=== PATIENT | male | born 1945 | race Caucasian/White ===

== ENCOUNTER 2016-07-27 13:54 | Emergency (ER) | payer MEDICARE, OTHER ==
[~2016-07-27] VITALS: Ht 167.6 cm; Wt 81.6 kg
[~2016-07-27 13:54] MED LIST: ASPI-991 PO; ATOR10TA PO; CLON0.1T PO; DIVA250T4 PO; FLUO20TA28 PO; GUAI480S10 PO; LEVE250T2 PO; LOPE2TAB25 PO; LORA1TAB PO; LOSA50TA21 PO; METF500T4 PO; METO25TA6 PO; OLAN20TA3 PO; OXYC10TA49 PO; PANT40TA4 PO; SUCR1TAB26 PO; TAMS0.4C34 PO; TEMA15CA PO; TRAZ-144 PO
--- NOTE | 2016-07-27 14:03 | NUR ---
BIB [facility] C/O N/V/D AND LOWER ABD PAIN X 1 DAY. GOWNED PT . PLACED ON MONITOR. VSS.
--- NOTE | 2016-07-27 14:15 | NUR ---
DR HARRINGTON AT BEDSIDE FOR EVAL
[2016-07-27] MEDS ORDERED: OXYC-28 PO (14:16)
[2016-07-27] MEDS ORDERED: AZIT250T6 PO (14:16)
[2016-07-27] MEDS ORDERED: BUDE10.2 IH (14:16)
[2016-07-27] MEDS ORDERED: DOCU-25 PO (14:16)
[2016-07-27] MEDS ORDERED: MORPHINE SULFATE INJ 4 MG/ML DISP.SYRIN ONE (14:22)
[2016-07-27] MEDS ORDERED: ONDANSETRON HCL/PF 4 MG/2 ML VIAL ONE (14:23)
[2016-07-27] MEDS ORDERED: IV SET PRIMARY PUMP SET 1 EA INFUS.SET MC ONE (14:23)
[2016-07-27] MEDS ORDERED: IV NS 0.9% 1,000 ML ONE (14:23)
--- NOTE | 2016-07-27 14:25 | NUR ---
PAVAN #20 IV ACCESS. BLOOD SAMPLE COLLECTED SENT TO LAB
[2016-07-27 14:30] LABS: BASOPHILS # (AUTO) 0.2 /CMM (0.0-0.2); EOSINOPHILS # (AUTO) 0.2 /CMM (0.0-0.7); EOSINOPHILS % (AUTO) 3.3 % (0.0-6.0); HEMATOCRIT 35 % (39-51); LYMPHOCYTES # (AUTO) 1.6 /CMM (0.8-4.8); MEAN CORPUSCULAR HEMOGLOBIN 32 PG (26.0-33.0); MEAN CORPUSCULAR HGB CONC 34 g/dl (31.0-36.0); MEAN CORPUSCULAR VOLUME 93 fL (80-96); MONOCYTES # (AUTO) 0.5 /CMM (0.1-1.30); MONOCYTES % (AUTO) 7.8 % (2.0-12.0); NEUTROPHILS # (AUTO) 3.5 /CMM (1.8-8.9); NEUTROPHILS % (AUTO) 57.9 % (43.0-81.0); PLATELET COUNT (AUTO) 184 /CMM (150-450); RDW COEFFICIENT OF VARIATION 13.3 (11.5-15.0); RED BLOOD CELL COUNT(AUTO) 3.78 MIL/uL (4.5-6.0)
[2016-07-27] MEDS ORDERED: MORPHINE SULFATE INJ 2 MG/ML DISP.SYRIN IV ONE (14:30)
[2016-07-27] MEDS ORDERED: IV NS 0.9% 1,000 ML BAG IV ONE (14:30)
[2016-07-27] MEDS ORDERED: ONDANSETRON HCL/PF 4 MG/2 ML VIAL IVP ONE (14:30)
[2016-07-27 14:41] LABS: CALCIUM, SERUM 8.8 mg/dL (8.5-10.1); CREATININE 1.3 mg/dL (0.6-1.3); POTASSIUM 5.4 mmol/L (3.5-5.1)
--- NOTE | 2016-07-27 14:43 | NUR ---
PT TAKEN TO CT IVAN RAY
[2016-07-27 14:46] LABS: ALBUMIN 3.2 g/dL (3.4-5.0); BILIRUBIN,TOTAL 0.2 mg/dL (0.2-1.0); TOTAL PROTEIN, SERUM 7.4 g/dL (6.4-8.2)
--- NOTE | 2016-07-27 15:41 | NUR ---
CALLED [facility] FOR TRANSPORT BACK TO [facility], ETA 90 MIN
--- NOTE | 2016-07-27 15:41 | NUR ---
IV removed. Catheter intact and site benign. Pressure and 4x4 applied to site. No bleeding noted.
--- NOTE | 2016-07-27 15:41 | NUR ---
Patient discharged to home in stable condition. Written and verbal after care instructions given. Patient verbalizes understanding of instruction.
[2016-07-27 16:14] VITALS: BP 120/76
== END 2016-07-27 17:20 | disposition home or self-care (01) ==
LOC: ER 13:55
DX: K59.00 Constipation, unspecified (principal); E11.9 Type 2 diabetes mellitus without complications; E78.00 Pure hypercholesterolemia, unspecified; F29 Unspecified psychosis not due to a substance or known physiological condition; F17.200 Nicotine dependence, unspecified, uncomplicated; G89.29 Other chronic pain; M54.5 Low back pain; I10 Essential (primary) hypertension; J45.909 Unspecified asthma, uncomplicated; Z79.82 Long term (current) use of aspirin; Z88.0 Allergy status to penicillin; Z91.013 Allergy to seafood; Z91.018 Allergy to other foods; Z88.6 Allergy status to analgesic agent; Z88.8 Allergy status to other drugs, medicaments and biological substances
CPT/HCPCS: 36415; 74176; 80048; 80076; 83690; 85025; 96361; 96374 ×2; 99285; A4606; J2270; J2405; J7030; Z7610

== ENCOUNTER 2016-11-16 17:10 | Emergency (ER) | payer MEDICARE, OTHER ==
[~2016-11-16] VITALS: Ht 172.7 cm; Wt 79.4 kg
[~2016-11-16 17:10] MED LIST changes: +AZIT250T6 PO; +BUDE10.2 IH; +DOCU-25 PO; -GUAI480S10 PO; -LOPE2TAB25 PO; +OXYC-28 PO; -OXYC10TA49 PO; -SUCR1TAB26 PO
--- NOTE | 2016-11-16 17:40 | NUR ---
CARMINA FROM [facility] VV: R HIP PAIN S/P WITNESSED GLF @ 1600. PATIENT A/OX 4. BREATHING EVEN AND UNLABORED. NO SOB. VITALS STABLE. SAFETY AND COMFORT MEASURES IN PLACE. AWAITING MD ORDERS.
--- NOTE | 2016-11-16 18:25 | NUR ---
PATIENT TAKEN TO XRAY VIA STRETCHER.
--- NOTE | 2016-11-16 18:43 | NUR ---
PATIENT RETURNED FROM XRAY IN STABLE CONDITION.
--- NOTE | 2016-11-16 19:25 | NUR ---
REPORT GIVEN TO HPIL BURNETT FOR HALLIE.
--- NOTE | 2016-11-16 19:48 | NUR ---
CALLED [facility] FOR TRANSPORT,ETA 2014
--- NOTE | 2016-11-16 20:15 | NUR ---
report given to emt transport.
[2016-11-16 20:16] VITALS: BP 126/64
[2016-11-17] MEDS ORDERED: NALO25TA PO (07:22)
[2016-11-17] MEDS ORDERED: DIPH1TAB70 PO (07:22)
[2016-11-17] MEDS ORDERED: ALBU1.257 IH (07:22)
[2016-11-17] MEDS ORDERED: FLUT1DIS3 IH (07:22)
[2016-11-17] MEDS ORDERED: SUCR1ORA2 PO (07:22)
[2016-11-17] MEDS ORDERED: LURA40TA PO (07:22)
== END 2016-11-16 20:17 | disposition home or self-care (01) ==
LOC: ER 17:11
DX: M54.5 Low back pain (principal); M54.6 Pain in thoracic spine; F17.200 Nicotine dependence, unspecified, uncomplicated; E11.9 Type 2 diabetes mellitus without complications; E78.00 Pure hypercholesterolemia, unspecified; G89.29 Other chronic pain; I10 Essential (primary) hypertension; I70.0 Atherosclerosis of aorta; J45.909 Unspecified asthma, uncomplicated; Z79.82 Long term (current) use of aspirin; Z88.0 Allergy status to penicillin; W19.XXXA Unspecified fall, initial encounter; Y92.89 Other specified places as the place of occurrence of the external cause; Y93.89 Activity, other specified; Y99.8 Other external cause status; Z88.8 Allergy status to other drugs, medicaments and biological substances; Z91.013 Allergy to seafood; Z91.018 Allergy to other foods
CPT/HCPCS: 72080; 82962; 99284; A4606; Z7610

== ENCOUNTER 2016-11-17 05:35 | Inpatient (IN) | payer MEDICARE, OTHER ==
[2016-11-17] VITALS (14 sets, daily range): BP systolic 107–153; BP diastolic 54–102
[~2016-11-17] VITALS: Ht 165.1 cm; Wt 65.3 kg
--- NOTE | 2016-11-17 05:35 | NUR ---
to bed 3 bib paramedics c/o syncope per ems report. pt aaox4 no acute distress noted, resp even and unlabored. pupils perrl, pt able to move all extremities well with bilateral equal assistant oceanographer. old multiple facial abrasion noted, noted new forehead abrasion from syncope this morning. place pt on cardiac monitoring, continuous pox. er md at bedside to eval pt with orders received. will carry out orders.
--- NOTE | 2016-11-17 06:01 | NUR ---
pt transported to radiology for ct.
[2016-11-17 06:06] LABS: HEMATOCRIT 40 % (39-51); HEMOGLOBIN 13.2 g/dL (13.5-17.5); LYMPHOCYTES # (AUTO) 0.7 /CMM (0.8-4.8); MEAN CORPUSCULAR HEMOGLOBIN 31 PG (26.0-33.0); MEAN CORPUSCULAR HGB CONC 33 g/dl (31.0-36.0); MEAN CORPUSCULAR VOLUME 94 fL (80-96); MONOCYTES # (AUTO) 1.7 /CMM (0.1-1.30); MONOCYTES % (AUTO) 10.4 % (2.0-12.0); NEUTROPHILS # (AUTO) 14.2 /CMM (1.8-8.9); NEUTROPHILS % (AUTO) 85.6 % (43.0-81.0); PLATELET COUNT (AUTO) 150 /CMM (150-450); RDW COEFFICIENT OF VARIATION 14.3 (11.5-15.0); RED BLOOD CELL COUNT(AUTO) 4.27 MIL/uL (4.5-6.0); WHITE BLOOD COUNT (AUTO) 16.6 K/uL (4.3-11.0)
[2016-11-17 06:25] LABS: INR 1.32 (0.87-1.13); PROTHROMBIN TIME 13.8 SECS (9.5-12.7)
--- NOTE | 2016-11-17 06:29 | NUR ---
pt back from radiology. pending ct result.
[2016-11-17 06:58] LABS: ALBUMIN 3.5 g/dL (3.4-5.0); BILIRUBIN,DIRECT 0.2 mg/dL (0.0-0.2); BILIRUBIN,TOTAL 0.8 mg/dL (0.2-1.0); CALCIUM, SERUM 8.9 mg/dL (8.5-10.1); CREATININE 1.7 mg/dL (0.6-1.3); POTASSIUM 3.5 mmol/L (3.5-5.1); TOTAL PROTEIN, SERUM 7.5 g/dL (6.4-8.2)
[2016-11-17 07:07] LABS: TROPONIN I 7.66 ng/mL (0.00-0.056)
--- NOTE | 2016-11-17 07:07 | NUR ---
er spoke to radiologist regarding ct head result.
--- NOTE | 2016-11-17 07:08 | NUR ---
report given to am shift RN Jordan.
--- NOTE | 2016-11-17 07:11 | NUR ---
Received report from Ed. Patient is resting comfortably in bed with eyes closed. Easily aroused. VSS
[2016-11-17] MEDS ORDERED: FLUT1DIS3 IH (07:22)
[2016-11-17] MEDS ORDERED: NALO25TA PO (07:22)
[2016-11-17] MEDS ORDERED: DIPH1TAB70 PO (07:22)
[2016-11-17] MEDS ORDERED: ALBU1.257 IH (07:22)
[2016-11-17] MEDS ORDERED: LURA40TA PO (07:22)
[2016-11-17] MEDS ORDERED: SUCR1ORA2 PO (07:22)
--- NOTE | 2016-11-17 07:47 | NUR ---
DR NYE IS NOT [facility] NURSING DIRECTOR. OK TO ADMIT PT TO [facility] PER DR NYE'S VOICE MSG.
--- NOTE | 2016-11-17 07:48 | NUR ---
DR NYE CALLED, PANEL ON-CALL PAGED
[2016-11-17 09:47] LABS: CREATINE KINASE MB 9.2 ng/mL (0-3.6)
--- NOTE | 2016-11-17 11:38 | NUR ---
PAGED DR MERRITT TO UPDATE ON 2.004
--- NOTE | 2016-11-17 12:59 | NUR ---
REPORT GIVEN TO LEX SANTOS
--- NOTE | 2016-11-17 13:21 | NUR ---
CARDIOLOGY ON-CALL, DR SAHNI, CALLED AND SPOKE WITH DR WHITE FOR CONSULT
--- NOTE | 2016-11-17 14:00 | NUR ---
ICU/RN: Pt received via gurney, breathing even and unlabored on RA, c/o 8/10 chest pressure, tightness radiating to R arm. A&Ox4. SR on monitor. Skin warm, dry, issues identified and documented. Belongings put in ICU safe. Oriented to unit and POC. Verbalized understanding.
--- NOTE | 2016-11-17 14:10 | NUR ---
ICU/RN: Dr Tolentino at bedside for admission. Case discussed with Dr Guardado. Per MD's, pt is not a candidate for cardiac cath, anticoagulation at this time. New orders noted and carried out.
--- NOTE | 2016-11-17 14:45 | NUR ---
ICU/RN: Dr Guardado at the bedside for cardiology consult. Abn labs and pt status discussed. Pending pacemaker evaluation ordered by .
--- NOTE | 2016-11-17 15:30 | NUR ---
ICU/RN: Provided pt with list of non-formulary home meds, per pt "no one can bring it for me." Swapnil, Rx informed.
--- NOTE | 2016-11-17 16:00 | NUR ---
ICU/RN: F/u with nursing human resources department supervisor regarding midline placement. Per human resources department supervisor, "I just sent them a message again, I'll update you later."
--- NOTE | 2016-11-17 19:00 | NUR ---
ICU/RN: Pt sitting in bed, refusing dinner, no s/s pain or distress, morphine dose effective. NSR on monitor, breathing even and unlabored on O2 2L/min NC. Call light within reach, alarm sounds audible. Care endorsed to pm rn for HALLIE.
--- NOTE | 2016-11-17 20:33 | NUR ---
TANKROOM WORKER DF RECEIVED PT TO ROOM#250 PT ADMITTED TODAY WITH NSTEMI, SYNCOPAL EPISODES, S/P FALL WITH HEAD CONTUSION. PT A/0-3 LETHARGIC DROWSY, PT HAD MORPHINE 2MG FOR CHEST PAIN AT 1805. PT SLEEPING AROUSES TO VERBAL/TACTILE. VSS. PT REPORTS MILD CHEST PAIN @3-4. PT SEEN BY CARDIOLOGY TODAY.
--- NOTE | 2016-11-17 21:52 | NUR ---
SHROUDMAN DF NEURO CHECK DONE PT LETHARGIC DROWSY. PT OPENS EYES WHEN PROMPTED TOO. PUPILS PEARLA@3MM. PT WITH WEAK EXTREMITY STRENGTH TO BUE 2ND PT HAS PAIN S/P SEVERAL FALLS PRIOR TO ADMISSION. PT UNABLE TO HOLD BUE UP 2ND PAIN. PT MOANING, C/O WHEN MOVING. PT REQUEST PAIN MGMT MORPHINE 2MG IVP ADMIN VSS. NAD NOTED. WILL CONTINUE TO MONITOR.
--- NOTE | 2016-11-17 23:39 | NUR ---
RISK MGR DF TRAZADONE/RESTORIL HELD PT SEDATED,DROWSY,LETHARGIC, PT RECEIVING MORPHINE PRN FOR CHEST PAIN/BODY PAIN S/P FALL.
[2016-11-18] VITALS (35 sets, daily range): BP systolic 114–156; BP diastolic 46–95
--- NOTE | 2016-11-18 02:34 | NUR ---
MEAT WRAPPER DF PT ADMIN MORPHINE 2MG IVP PT C/O BODY PAIN S/P FALL. PT C/O CHEST PAIN 5-6/10 NON RADIATING. PT STATES MS PROVIDES RELIEF. PT MUCH MORE ALERT,LESS LETHARGIC. PT CONVERSING, A/OX4. NEURO CHECK Q 2 HOURS NO ACUTE CHANGES NOTED.
--- NOTE | 2016-11-18 03:51 | NUR ---
SLIVER LAP TENDER DF PT C/O PAIN 06/20 ADMIN MORPHINE 2MG IVP ABOUT 90 MIN AGO. PT REQUESTING NORCO FOR BREAKTHROUGH PAIN. ADMIN PT 1 TAB NORCO. VSS. A/OX4.
[2016-11-18 05:01] LABS: BASOPHILS % (AUTO) 0.3 % (0.0-2.0); EOSINOPHILS % (AUTO) 0.2 % (0.0-6.0); HEMATOCRIT 35 % (39-51); HEMOGLOBIN 11.6 g/dL (13.5-17.5); MEAN CORPUSCULAR HEMOGLOBIN 32 PG (26.0-33.0); MEAN CORPUSCULAR HGB CONC 34 g/dl (31.0-36.0); MEAN CORPUSCULAR VOLUME 94 fL (80-96); MONOCYTES # (AUTO) 0.8 /CMM (0.1-1.30); MONOCYTES % (AUTO) 6.9 % (2.0-12.0); NEUTROPHILS # (AUTO) 9.2 /CMM (1.8-8.9); NEUTROPHILS % (AUTO) 83.6 % (43.0-81.0); PLATELET COUNT (AUTO) 120 /CMM (150-450); RDW COEFFICIENT OF VARIATION 14.7 (11.5-15.0); RED BLOOD CELL COUNT(AUTO) 3.69 MIL/uL (4.5-6.0); WHITE BLOOD COUNT (AUTO) 11.1 K/uL (4.3-11.0)
[2016-11-18 05:18] LABS: CALCIUM, SERUM 7.4 mg/dL (8.5-10.1); CREATININE 0.9 mg/dL (0.6-1.3); MAGNESIUM 1.5 mg/dL (1.8-2.4); PHOSPHORUS 1.9 mg/dL (2.5-4.9); POTASSIUM 4.1 mmol/L (3.5-5.1)
[2016-11-18 05:36] LABS: THYROID STIMULATING HORMONE 0.543 uIU/mL (0.358-3.74)
[2016-11-18 06:02] LABS: INR 1.22 (0.87-1.13); PROTHROMBIN TIME 12.7 SECS (9.5-12.7)
--- NOTE | 2016-11-18 07:49 | NUR ---
INITIAL METALLURGICAL LAB TECHNICIAN NOTE RCVD PT AWAKE AND ALERT SHOWING NO S/O DISTRESS, C/O PAIN 9/10 OVER BILATERAL KNEES AND FOREHEAD. SR ON TELE. TOLERATING O2 VIA NC. URINAL AT BEDSIDE. LEFT AC #18 C/D/I/PATENT. NO S/O INFILTRATION/PHLEBITIS OBSERVED. IVF INFUSING. PAIN MEDICATION GIVEN ORDERED. WILL CONTINUE TO MONITOR PT FOR SAFETY AND COMFORT. CALL LIGHT WITHIN REACH. BED IN LOW AND LOCKED POSITION.
--- NOTE | 2016-11-18 09:18 | NUR ---
MEDICATION RN NOTE PER PT'S STATEMENT ASPIRIN NOT AN ALLERGY ONLY CAUSES UPSET STOMACH WELL IBUPROFEN. PT WAS GIVEN AM DOSE OF ENTERIC COATED ASA.
--- NOTE | 2016-11-18 09:54 | NUR ---
NETWORK STRATEGIST NOTE MIDLINE INSERTED PER ORDER. PT TOLERATED PROCEDURE WELL. WILL CONTINUE TO MONITOR. DR. SAHNI IN UNIT THIS AM AWAITING FOR NEUROSURGERY CONSULT TO START PT ON ANTICOAGULANTS.
--- NOTE | 2016-11-18 11:01 | NUR ---
ARMORED TRANSPORT SERVICE MANAGER NOTE DR. MERRITT PAGED REGARDING PT'S PAIN LEVEL NOT BEING MANAGED WITH CURRENT TX. DR. MERRITT CALLED BACK STARTED PT ON ULTRAM ORDER ENTERED AND CARRIED OUT WILL CONTINUE TO MONITOR.
--- NOTE | 2016-11-18 12:23 | NUR ---
EDGE INKER UPPERS NOTE DR. MERRITT IN UNIT UPDATED ON PT'S CONDITION. PT REPORTS CONSTANT THROBBING PAIN OVER FOREHEAD. PAIN MEDS CHANGED WILL CONTINUE TO MONITOR FOR PAIN MX.
[2016-11-18 13:49] LABS: CREATINE KINASE MB 3.9 ng/mL (0-3.6)
--- NOTE | 2016-11-18 17:02 | NUR ---
FUNCTIONAL ANALYST NOTE PT REQUESTED TO TRANSFER TO CHAIR AFTER BED BATH. PT ASSISTED TO TRANSFER TO CHAIR, VITAL SIGNS REMAIN STABLE. PT DENIED SOB OR DIZZINESS UPON TRANSFER. MINIMAL ASSIST REQUIRED. NO C/O PAIN REPORTED. Addendum: 11/18/16 at 1703 by TRENT DONALDSON RN PT SITTING IN CHAIR INSTRUCTED TO CALL FOR ASSISTANCE WHEN READY TO TRANSFER BACK TO BED. PT ACKNOWLEDGED INFORMATION. NON SKIN SOCKS IN PLACE.
--- NOTE | 2016-11-18 18:54 | NUR ---
ESCAPEMENT MATCHER NOTE PT REMAINS STABLE, SHOWING NO S/O DISTRESS/PAIN. SR ON TELE. TOLERATING O2 VIA NC. VOIDING TO URINAL. IV SITES REMAIN C/D/I/PATENT. NO S/O INFILTRATION/PHLEBITIS OBSERVED IVF INFUSING. PT'S CARE WILL BE ENDORSED TO STATE'S ATTORNEY RN FOR CONTINUITY OF CARE. SITTING IN CHAIR. CALL LIGHT WITHIN REACH.
--- NOTE | 2016-11-18 19:30 | NUR ---
RN INITIAL NOTES RECEIVED PT AWAKE ON BED, A/OX4. ON 2L NASAL CANNULA, NO S/S OF RESP DISTRESS. PT IS COMPLAINING OF PAIN ON THE HEAD S/P FALL PRIOR TO ADMISSION; WILL PROVIDE PAIN MEDICATION. CURRENTLY SR ON THE MONITOR, HR 60'S. CONTINENT, ABLE TO USE URINAL NEEDED. LEFT AC 18G AND LEFT UPPER ARM MIDLINE WITH NS @ 150MLS/HR, BOTH FLUSHED AND PATENT, NO S/S OF INFILTRATION/INFECTION, DRESSINGS CDI. BED LOW AND LOCKED, SIDERAILS UP, CALL LIGHT WITHIN REACH, BED ALARM ON. WILL MONITOR CLOSELY Addendum: 11/18/16 at 1947 by MIGNON REA RN PT IS A-PACING; LEFT CHEST WALL PACEMAKER NOTED.
[2016-11-19] VITALS (24 sets, daily range): BP systolic 88–161; BP diastolic 57–119
[2016-11-19 05:01] LABS: BASOPHILS % (AUTO) 0.1 % (0.0-2.0); EOSINOPHILS # (AUTO) 0.1 /CMM (0.0-0.7); EOSINOPHILS % (AUTO) 0.7 % (0.0-6.0); HEMATOCRIT 32 % (39-51); HEMOGLOBIN 10.5 g/dL (13.5-17.5); LYMPHOCYTES # (AUTO) 0.9 /CMM (0.8-4.8); MEAN CORPUSCULAR HEMOGLOBIN 32 PG (26.0-33.0); MEAN CORPUSCULAR HGB CONC 33 g/dl (31.0-36.0); MEAN CORPUSCULAR VOLUME 95 fL (80-96); MONOCYTES # (AUTO) 0.5 /CMM (0.1-1.30); MONOCYTES % (AUTO) 5.7 % (2.0-12.0); NEUTROPHILS # (AUTO) 6.6 /CMM (1.8-8.9); NEUTROPHILS % (AUTO) 82.5 % (43.0-81.0); PLATELET COUNT (AUTO) 118 /CMM (150-450); RDW COEFFICIENT OF VARIATION 14.8 (11.5-15.0); RED BLOOD CELL COUNT(AUTO) 3.35 MIL/uL (4.5-6.0); WHITE BLOOD COUNT (AUTO) 7.9 K/uL (4.3-11.0)
[2016-11-19 05:22] LABS: CALCIUM, SERUM 7.2 mg/dL (8.5-10.1); CREATININE 0.8 mg/dL (0.6-1.3); MAGNESIUM 2.2 mg/dL (1.8-2.4); PHOSPHORUS 1.6 mg/dL (2.5-4.9); POTASSIUM 3.8 mmol/L (3.5-5.1)
[2016-11-19 05:27] LABS: TROPONIN I 3.523 ng/mL (0.00-0.056)
[2016-11-19 05:46] LABS: CREATINE KINASE MB 1.8 ng/mL (0-3.6)
--- NOTE | 2016-11-19 06:30 | NUR ---
RN NOTES PT REMAINS STABLE OF THE MOMENT. ALL DUE MEDS GIVEN, AM CARE PROVIDED. WILL ENDORSE HALLIE TO AM RN
--- NOTE | 2016-11-19 07:00 | NUR ---
icu initial note received pt in bed, asleep, easy to arorse, able to follow commands, able to make needs known, pt is on 2l nc, sating well, pt is on bedside monitor showing a-pacing in 60's, no c/o of chest pain or discomfort at this time, pt has lwc pacemaker, pacing well, pt uses urinal, pt has lac #18g,sl, macarena midline, running ns @ 150ml/hr, c/d/i/patent, flushing well, no s/s of infection/ infiltration noted at this time, pt is noted with facial abrasions, pt states that he has a headache 10/10, getting worse, aware, all treatments ack and will be carried out, all safety measures in place at all times, call light within easy reach, will monitor pt closely for changes
--- NOTE | 2016-11-19 09:12 | NUR ---
icu note , made rounds, all new orders ack.
[2016-11-19 09:15] LABS: *BASOS 0 % (Not Estab.); *EOS 0 % (Not Estab.); *HCT 34.6 % (37.5-51.0); *HGB 11.6 g/dL (12.6-17.7); *IMMATURE GRANULOCYTES 0 % (Not Estab.); *LYMPHOCYTES 11 % (Not Estab.); *LYMPHS, ABSOLUTE 1.1 x10E3/uL (0.7-3.1); *MCH 31.4 pg (26.6-33.0); *MCHC 33.5 g/dL (31.5-35.7); *MCV 94 fL (79-97); *MONOCYTES 6 % (Not Estab.); *MONOS, ABSOLUTE 0.6 x10E3/uL (0.1-0.9); *NEUTROPHILS 83 % (Not Estab.); *NEUTROPHILS, ABSOLUTE 8.2 x10E3/uL (1.4-7.0); *PLT 126 x10E3/uL (150-379); *RDW 14.1 % (12.3-15.4)
--- NOTE | 2016-11-19 09:49 | NUR ---
ICU NOTE PT REQUESTED PAIN MEDICATION AND MEDICATION FOR CONSTIPATION. MEDICATION GIVEN AND WILL REASSESS PER PROTOCOL
--- NOTE | 2016-11-19 10:36 | NUR ---
ICU NOTE ORTHOSTATIC BP 135/58 HR 76- LAYING 156/75 HR 66 STANDING 182/84 HR 66 SITTING
--- NOTE | 2016-11-19 10:37 | NUR ---
icu note pt transferred to [facility]/2 with tele protocol, report given to 3w rn, charge nurse aware, all safety measures in place, pt belongings and chart, medications with pt
--- NOTE | 2016-11-19 10:45 | NUR ---
MEDICAL TRANSCRIPTION: TRANSFER NOTE RECEIVED REPORT FROM FANG. PT A/OX4. ON TELE MONITOR A PACING AND SINUS RHYTHM 66. NO DISTRESS NOTED. NO PAIN NOTED. NO SOB NOTED. VS STBALE. BP 147/68, PULSE 66, RR 18, O2 96% ON ROOM AIR. AMBULATES WITH ASSISTANCE. HAS SACRAL REDNESS, FACE ABRASION AND LEFT KNEE ABRASION DUE TO FALL. DX OF NSTEMI. ON CARDIAC DIET. L AC #18, AND MIDLINE OM L UPPER ARM RUNNING NS AT 150ML/HR. SITE CLEAR AND PATENT. NO BLEEDING OR INFILTRATION NOTED. RESTING COMFORTABLY IN BED. CALL LIGHT WITHIN REACH.
--- NOTE | 2016-11-19 11:14 | NUR ---
PT TAKEN TO NUCLEAR MEDICINE FOR CT OF HEAD W/O CONTRAST. PT STABLE.
--- NOTE | 2016-11-19 11:25 | NUR ---
PT RETURNED FROM CT SCAN. NO DISTRESS NOTED. STABLE.
--- NOTE | 2016-11-19 18:34 | NUR ---
CLINIC PHYSICIAN DIRECTOR: CLOSING NOTE PT A/OX4. ON 2L NC SATING AT 98%. NO DISTRESS NOTED. NO SOB NOTED. PAIN CONTROLLED WITH PAIN MEDICATIONS. ON TELE MONITOR A- PACING SR AT 78 BPM. TOOK ALL MEDICATIONS ON TIME. NO ADVERSE REACTIONS NOTED. IV MIDLINE ON LEFT UPPER ARM RUNNING NS AT 150ML/HR. IV ON L AC SL. BOTH SITES CLEAR AND PATENT. NO REDNESS OR BLEEDING NOTED. AMBULATORY WITH MINIMAL ASSIST. USES BED SIDE CAMODE AND URINAL. NO CHANGES IN CONDITION NOTED. NO N/V NOTED. NEURO CHECKS Q 4HOURS. RESTING COMFORTABLY IN BED. CALL LIGHT WITHIN REACH.
--- NOTE | 2016-11-19 19:35 | NUR ---
OPTICAL GOODS WORKER NOTE RECEIVED PATIENT FROM DAY SHIFT, PATIENT IS ALERT AND ORIENTEDX3, CONFUSED AT TIMES. NO S/S OF RESPIRATORY DISTRESS OR PAIN AT THIS TIME. PATIENT ASKED TO GO OUT FOR SMOKE, HIS CIGARETTE WAS NOT IN A DRAWER, PT STATED HE WILL SIGN AMA SUSANNE. WILL TRY TO FIND HIS CIGARETTE. PT PULLED OUT HIS TELE BOX WELL. IV AND MID LINE ON LEFT UPPER ARM PATENT AND INTACT. WILL CONTINUE TO MONITOR PATIENT. Addendum: 11/20/16 at 0534 by JUDI DICKERSON RN CORRECTION: PT STATED HE WILL SIGN AMA IF HE CANNOT GO OUT FOR SMOKE.
--- NOTE | 2016-11-19 21:30 | NUR ---
FOREST ECONOMICS PROFESSOR NOTE WAS ABLE TO FIND HIS CIGARETTE IN ANOTHER CABINET, PATIENT WENT OUT FOR SMOKE, COOPERATIVE AND STAYED IN HIS ROOM AFTER HE CAME BACK.
[2016-11-20] VITALS: BP 144/69
[2016-11-20 01:18] LABS: *% CD 4 POS. LYMPH 51.6 % (30.8-58.5); *% CD 8 POS. LYMPH 21.8 % (12.0-35.5); *ABSOLUTE CD 4 HELPER 568 /uL (359-1519); *ABSOLUTE CD 8 SUPPRESSOR 240 /uL (109-897); *CD4/CD8 RATIO 2.37 (0.92-3.72)
[2016-11-20 04:00] VITALS: BP 153/60
--- NOTE | 2016-11-20 05:30 | NUR ---
AREA SAFETY MANAGER NOTE PATIENT PULLED OUT HIS MIDLINE AND IV ACCESS ON LEFT ARM. PATIENT IS HARD STICK, UNABLE TO INSERT THE NEW IV ACCESS. NOTIFIED CHG RN, AND WILL CALL THE NURSING SUP FOR A MIDLINE NURSE.
--- NOTE | 2016-11-20 06:15 | NUR ---
DIRECTOR OF EXHIBIT DEVELOPMENT NOTE NOTIFIED NURSING SUP FOR A MIDLINE NURSE.
--- NOTE | 2016-11-20 06:56 | NUR ---
LINE DECORATOR NOTE PATIENT IS RESTING IN BED, NO S/S OF RESPIRATORY DISTRESS OR PAIN NOTED. TELE MONITOR SR 84 WITH PVCS. WILL ENDORSE TO DAY SHIFT FOR HALLIE.
[2016-11-20 07:20] LABS: EOSINOPHILS % (AUTO) 0.3 % (0.0-6.0); HEMATOCRIT 30 % (39-51); HEMOGLOBIN 10.1 g/dL (13.5-17.5); LYMPHOCYTES # (AUTO) 0.8 /CMM (0.8-4.8); LYMPHOCYTES % (AUTO) 10.3 % (20.0-44.0); MEAN CORPUSCULAR HEMOGLOBIN 31 PG (26.0-33.0); MEAN CORPUSCULAR HGB CONC 33 g/dl (31.0-36.0); MEAN CORPUSCULAR VOLUME 94 fL (80-96); MONOCYTES # (AUTO) 0.6 /CMM (0.1-1.30); NEUTROPHILS # (AUTO) 5.9 /CMM (1.8-8.9); NEUTROPHILS % (AUTO) 81.4 % (43.0-81.0); PLATELET COUNT (AUTO) 138 /CMM (150-450); RDW COEFFICIENT OF VARIATION 14.5 (11.5-15.0); RED BLOOD CELL COUNT(AUTO) 3.25 MIL/uL (4.5-6.0); WHITE BLOOD COUNT (AUTO) 7.3 K/uL (4.3-11.0)
--- NOTE | 2016-11-20 07:23 | NUR ---
TELE/RN OPENING NOTES PT RECEIVED ASLEEP IN BED, EASILY AWAKENS. HOB ELEVATED. A/O X3 AND VERBALLY RESPONSIVE, DENIES ANY PAIN OR DISCOMFORTS AT THIS TIME. ON 02 VIA N/C AT 2LPM, TOLERATING WELL, BREATHING EVEN AND UNLABORED. ON TELE-MONITORING WITH CURRENT READING OF SINUS RHYTHM WITH BBB AND HR OF 88. BED IN LOW AND LOCKED POSITION, CALL LIGHT WITHIN REACH WITH SIDE RAILS UPX2. WILL CONTINUE TO MONITOR PT'S STATUS ACCORDINGLY.
[2016-11-20 07:26] LABS: CALCIUM, SERUM 7.8 mg/dL (8.5-10.1); CREATININE 0.8 mg/dL (0.6-1.3); MAGNESIUM 1.8 mg/dL (1.8-2.4)
[2016-11-20 07:31] LABS: POTASSIUM 3.8 mmol/L (3.5-5.1)
[2016-11-20 08:00] VITALS: BP 154/65
--- NOTE | 2016-11-20 09:28 | NUR ---
RN NOTES NURSE PATRICIA INSERTED NEW MIDLINE G# 18 ON PT'S RIGHT UPPER ARM AND SECURED WITH TAPE. IVF OF NS @ 150 ML/HR RE-CONNECTED. WILL CONTINUE TO MONITOR.
--- NOTE | 2016-11-20 12:05 | NUR ---
RN NOTES PATIENT SEEN AND EVALUATED BY DR BRIAN WITH ORDER TO DISCONTINUE PT ON TELEMONITORING. ORDERED CARRIED OUT, PT WITH NO C/O CHESTPAIN, LIGHEADEDNESS NOR N & V. WILL CONTINUE TO MONITOR.
--- NOTE | 2016-11-20 13:53 | NUR ---
WOUND CARE CONSULT: PT PRESENTS WITH DRY ABRASIONS TO FOREHEAD AND LEFT KNEE, PRESENT ON ADMISSION. PT SITTING IN BEDSIDE CHAIR. PT REFUSED FULL SKIN ASSESSMENT OF BACK AND BUTTOCKS. WILL SEE PRN. Addendum: 11/20/16 at 1354 by MARGY BRIGGS WNDNU Amended: Links added. Addendum: 11/20/16 at 1401 by MARGY BRIGGS WNDNU PT ALLOWED SKIN ASSESSMENT OF SACRAL AREA AND SMALL SCAR NOTED. PT IS AMBULATORY.
[2016-11-20 16:00] VITALS: BP 160/73
--- NOTE | 2016-11-20 16:30 | NUR ---
RN NOTES PT SEEN AND EVALUATED BY DR HERNANDEZ WITH ORDER TO DO MRI OF BRAIN WITHOUT CONTRAST. EXPLAINED PROCEDURE TO PT AND VERBALIZED UNDERSTANDING. CHECKLIST BEFORE MRI DONE AND SIGNED BY PT.
--- NOTE | 2016-11-20 17:07 | NUR ---
RN NOTES CALLED AND SPOKE TO PARUL OF RADIOLOGY AND ASK WHEN ARE THEY GOING TO DO MRI OF BRAIN W/O CONTRAST FOR PT, HE STATED THAT HE WILL CALL ONCE ORDER IS APPROVE. WILL FOLLOW-UP
--- NOTE | 2016-11-20 17:26 | NUR ---
TEXTED DR. SOMERS FOR MRI APPROVAL.
--- NOTE | 2016-11-20 17:29 | NUR ---
MRI ON HOLD FOR NOW PER DR. SOMERS ,HE WILL LET US KNOW.
--- NOTE | 2016-11-20 18:40 | NUR ---
MS/RN CLOSING NOTES PT REAWAKE AND WATCHING TV IN BED. HOB KEPT ELEVATED. A/O X3, SAME VERBALLY RESPONSIVE. ALL NEEDS AND CARE ATTENDED WELL. ON 02 VIA N/C AT 2LPM, TOLERATING WELL, BREATHING EVEN WITH NO SOB NOTED. MIDLINE G#18 ON KYLER INTACT AND PATENT WITH IVF OF NS @ 150ML/HR INFUSING WELL. KEPT BED IN LOW AND LOCKED POSITION, CALL LIGHT WITHIN REACH WITH SIDE RAILS UPX2. WILL ENDORSED TO EXTRUDER OPERATOR HELPER NURSE TO FOLLOW-UP ON PT'S MRI OF BRAIN W/O CONTRAST.
--- NOTE | 2016-11-20 19:15 | NUR ---
MS/RN OPENING NOTES PT RECEIVED AWAKE, SITTING UP AT THE SIDE OF THE BED. A/OX3. ON ROOM AIR, BREATHING IS EVEN AND UNLABORED. NO APPARENT SIGNS OF SOB OR DISTRESS. NO FACIAL GRIMACING OR SIGNS OF PAIN NOTED. MIDLINE TO LILY PATENT AND INTACT RUNNING IVF ORDERED. WILL FOLLOW UP REGARDING PT'S MRI OF THE BRAIN W/O CONTRAST. BED IN LOW/LOCKED POSITION WITH CALL LIGHT IN REACH. SIDE RAILS UPX2. BED ALARM ON FOR SAFETY. ENCOURAGED PT TO USE CALL LIGHT AND ASK FOR ASSISTANCE WHEN GETTING OUT OF BED. PT VERBALIZED UNDERSTANDING. WILL CONTINUE TO MONITOR
[2016-11-20 20:00] VITALS: BP 159/66
--- NOTE | 2016-11-21 00:10 | NUR ---
MS/RN NOTES CALLED RADIOLOGY X2 TO FOLLOW UP REGARDING PT'S ORDER FOR MRI WITH NO ANSWER. CALLED A 3RD TIME AND SPOKE TO SLICK WHO SAID THE MRI WILL HAVE TO BE DONE DURING THE DAY SHIFT DUE TO NO SERVICES ACCOUNT MANAGER AVAILABLE AT THIS TIME.
--- NOTE | 2016-11-21 04:48 | NUR ---
MS/RN NOTES PT EXPERIENCED UNWITNESSED FALL. UPON MAKING ROUNDS, NOTICED BLOOD ON FLOOR AT PT'S BEDSIDE. ASKED PT WHAT HAPPENED AND PT STATED HE TRIED USING THE BEDSIDE COMMODE APPROX 15 MINS PRIOR AND HIS LEFT LEG GAVE OUT, WHICH RESULTED IN HIS KNEE HITTING THE FLOOR. PT REOPENED SCABBED OVER ABRASION TO HIS LEFT KNEE. NO SWELLING VISIBLE AT THIS TIME. HAS GOOD ROM. CLEANED PT UP AND CLEANSED WOUND/DRESSING APPLIED. VITALS SIGNS RECHECKED, ZE=294/76, HR=81, SPO2 96%. BREATHING EVEN AND UNLABORED. PT DENIES INJURY TO THE HEAD. BED ALARM PLACED, SIDE RAILS UPX3, CALL LIGHT IN REACH. REMINDED PT TO USE CALL LIGHT FOR ASSISTANCE, ESPECIALLY WHEN TRYING TO GET OUT OF BED. PT VERBALIZED UNDERSTANDING. INCIDENT REPORT DONE AND OIL WELL PUMPER NOTIFIED. LORNA WOLF NP MADE AWARE WITH NO ORDERS AT THIS TIME. WILL MONITOR
--- NOTE | 2016-11-21 06:30 | NUR ---
MS/RN NOTES PAGED DR. NYE
--- NOTE | 2016-11-21 06:53 | NUR ---
MS/RN NOTES RECEIVED CALL BACK FROM DR. NYE. NOTIFIED HIM OF PT'S UNWITNESSED FALL. NO ORDERS AT THIS TIME. ONLY TO CONTINUE OBSERVATION
--- NOTE | 2016-11-21 07:15 | NUR ---
MS/RN CLOSING NOTES PT AWAKE, HOB ELEVATED. RESTING IN BED. ON ROOM AIR, BREATHING EVEN AND UNLABORED. NO S/S OF DISTRESS NOTED. DENIES SOB OR PAIN AT THIS TIME. MIDLINE TO LILY PATENT AND INTACT RUNNING IVF ORDERED. REORIENTED PT PRN. BED IN LOW/LOCKED POSITION, CALL LIGHT IN REACH. SIDE RAILS UPX3 AND BED ALARM ON. REMINDED PT TO STAY IN BED AND CALL FOR ASSISTANCE PRN. PT FOR MRI OF BRAIN W/O CONTRAST TODAY. ENDORSED TO AM SHIFT HALLIE.
--- NOTE | 2016-11-21 07:33 | NUR ---
CX MRI PER DR. SOMERS
[2016-11-21 08:00] VITALS: BP 155/72
[2016-11-21 08:29] LABS: EOSINOPHILS % (AUTO) 0.2 % (0.0-6.0); HEMATOCRIT 29 % (39-51); HEMOGLOBIN 9.9 g/dL (13.5-17.5); LYMPHOCYTES # (AUTO) 0.8 /CMM (0.8-4.8); LYMPHOCYTES % (AUTO) 9.7 % (20.0-44.0); MEAN CORPUSCULAR HEMOGLOBIN 31 PG (26.0-33.0); MEAN CORPUSCULAR HGB CONC 34 g/dl (31.0-36.0); MEAN CORPUSCULAR VOLUME 93 fL (80-96); MONOCYTES # (AUTO) 0.7 /CMM (0.1-1.30); MONOCYTES % (AUTO) 8.2 % (2.0-12.0); NEUTROPHILS # (AUTO) 6.8 /CMM (1.8-8.9); NEUTROPHILS % (AUTO) 81.9 % (43.0-81.0); PLATELET COUNT (AUTO) 149 /CMM (150-450); RDW COEFFICIENT OF VARIATION 14.5 (11.5-15.0); RED BLOOD CELL COUNT(AUTO) 3.15 MIL/uL (4.5-6.0); WHITE BLOOD COUNT (AUTO) 8.3 K/uL (4.3-11.0)
[2016-11-21 08:30] LABS: CALCIUM, SERUM 7.8 mg/dL (8.5-10.1); CREATININE 0.7 mg/dL (0.6-1.3); MAGNESIUM 1.5 mg/dL (1.8-2.4); POTASSIUM 3.3 mmol/L (3.5-5.1)
[2016-11-21 16:00] VITALS: BP 144/70
[2016-11-21 18:09] LABS: *HIV-1 RNA BY PCR <40 copies/mL (.)
--- NOTE | 2016-11-21 19:30 | NUR ---
RN NOTES RECEIVED PATIENT UP IN CHAIR. AO X 3, ABLE TO MAKE NEEDS KNOWN. NO ACUTE DISTRESS NOTED. DENIES ANY PAIN AT THIS TIME. IV SITE PATENT, INTACT; IVF INFUSING ORDERED. SAFETY REMINDERS GIVEN. CALL LIGHT WITHIN EASY REACH. WILL CONTINUE TO MONITOR.
[2016-11-21 20:00] VITALS: BP 161/77
--- NOTE | 2016-11-22 06:19 | NUR ---
RN NOTES PATIENT ASLEEP, EASILY AROUSABLE. RESPIRATIONS EVEN. NO SIGNS OF PAIN NOTED. DUE MEDS GIVEN WITH NO ASE NOTED. NEEDS ATTENDED. SAFETY PRECAUTIONS AND COMFORT MEASURES IN PLACE. WILL GIVE REPORT TO DAY SHIFT FOR CONTINUITY OF CARE.
--- NOTE | 2016-11-22 07:25 | NUR ---
RN OPENING NOTES RECEIVED PATIENT AWAKE IN BED RESTING COMFORTABLY. PT AOX3. PT COMPLAINING OF 10/10 SHARP CP AND 10/10 FOREHEAD PAIN. WILL IMPLEMENT APPROPRIATE MEASURES. WILL CONTINUE TO MONITOR CP. COMPLAINING OF SOB. RESPIRATION EVEN AND UNLABORED. NO ACUTE DISTRESS NOTED. CRACKLES AUSCULTATED THROUGHOUT. IV PATENT AND INTACT WITH NS RUNNING AT 150ML/HR. WILL NEED TO CLARIFY ORDERS. BED LOCKED IN THE LOWEST POSITION WITH SIDE RAILS UPX2. CALL LIGHT WITHIN REACH. WILL CONTINUE TO MONITOR, ACCESS AND EDUCATE PATIENT THROUGHOUT SHIFT.
[2016-11-22 08:00] VITALS: BP 150/65
[2016-11-22 08:16] LABS: CREATININE 0.7 mg/dL (0.6-1.3); MAGNESIUM 1.7 mg/dL (1.8-2.4); POTASSIUM 3.6 mmol/L (3.5-5.1)
[2016-11-22 16:00] VITALS: BP 148/82
[2016-11-22 19:00] VITALS: BP 152/64
--- NOTE | 2016-11-22 19:08 | NUR ---
RN CLOSING NOTES (AMA) PATIENT REQUESTING TO LEAVE AMA. PATIENT AWARE OF CURRENT CONDITION. AMA FORM SIGNED AND PLACED IN CHART. REPORT GIVEN TO TRACI AT [facility]. PATIENT AOX3. SKIN ABRASIONS NOTED TO THE FOREHEAD. PATIENT IS REFUSING PICTURES TO BE TAKEN. NO EXITCARE PROVIDED. BELONGS RETURNED.
--- NOTE | 2016-11-22 19:08 | NUR ---
AMA INCIDENT REPORT PATIENT REQUESTING TO LEAVE AMA. MD WAS NOTIFIED OF PATIENTS WISHES. CASE MANAGEMENT AND CHARGE NURSE NOTIFIED AND AWARE. PATIENT SIGNED AND ACKNOWLEDGED AMA FORM AND PLACED INTO CHART. EDUCATION OF RISKS AND BENEFITS FOR LEAVING AMA WAS PROVIDED TO PATIENT. REINFORCEMENT EDUCATION WAS COMPLETED. PATIENT REFUSED ANY DISCHARGE EDUCATION. EXIT CARE WAS REFUSED.
== END 2016-11-22 20:10 | disposition left against medical advice (07) | DRG 280 ==
LOC: ER 05:39 → ICU 12:09 → TELE 11-19 10:46 → MED 11-20 10:47
PROVIDERS: ADMIT Legal Medicine; ATTEND Legal Medicine
PROC: 05H633Z Insertion of Infusion Device into Left Subclavian Vein, Percutaneous Approach (ICD-10-PCS; principal; 2016-11-18)
PROC: 05H533Z Insertion of Infusion Device into Right Subclavian Vein, Percutaneous Approach (ICD-10-PCS; 2016-11-20)
DX: I21.4 Non-ST elevation (NSTEMI) myocardial infarction (principal); N17.0 Acute kidney failure with tubular necrosis; M62.82 Rhabdomyolysis; E83.39 Other disorders of phosphorus metabolism; E83.42 Hypomagnesemia; S06.320A Contusion and laceration of left cerebrum without loss of consciousness, initial encounter; W18.30XA Fall on same level, unspecified, initial encounter; D63.8 Anemia in other chronic diseases classified elsewhere; E11.9 Type 2 diabetes mellitus without complications; I25.10 Atherosclerotic heart disease of native coronary artery without angina pectoris; R55 Syncope and collapse; E86.9 Volume depletion, unspecified; F17.210 Nicotine dependence, cigarettes, uncomplicated; F32.9 Major depressive disorder, single episode, unspecified; G40.909 Epilepsy, unspecified, not intractable, without status epilepticus; G89.4 Chronic pain syndrome; I10 Essential (primary) hypertension; K21.9 Gastro-esophageal reflux disease without esophagitis; J44.9 Chronic obstructive pulmonary disease, unspecified; Z79.899 Other long term (current) drug therapy; Z86.73 Personal history of transient ischemic attack (TIA), and cerebral infarction without residual deficits; Z95.0 Presence of cardiac pacemaker; Y93.9 Activity, unspecified; Y92.89 Other specified places as the place of occurrence of the external cause; E78.00 Pure hypercholesterolemia, unspecified
CPT/HCPCS: 36415; 70450-TC; 71010-TC; 72125-TC; 80048-TC; 80061-TC; 80076-TC; 82550-TC; 82553-TC; 82746; 83540-TC; 83735-TC; 84100-TC; 84443-TC; 84484-TC; 85025-TC; 85610-TC; 85652-TC; 85730-TC; 86360; 87081-TC; 87536; 93307-TC; 97116-TC; 97530-TC; A4606; A6402; J1170; J1953; J2270; J2916; J3475; J7030; J7040; J7050; Z7610

== ENCOUNTER 2016-11-23 02:38 | Inpatient (IN) | payer MEDICARE, OTHER ==
[~2016-11-23] VITALS: Ht 167.6 cm; Wt 68.5 kg
[~2016-11-23 02:38] MED LIST changes: +ALBU1.257 IH; -AZIT250T6 PO; -BUDE10.2 IH; +DIPH1TAB70 PO; -DOCU-25 PO; +FLUT1DIS3 IH; -LOSA50TA21 PO; +LURA40TA PO; -METF500T4 PO; +NALO25TA PO; -OLAN20TA3 PO; +SUCR1ORA2 PO
--- NOTE | 2016-11-23 02:50 | NUR ---
71 YO MALE BB RA FROM [facility]. PT DS TO ER BED, SKIN WARM AND DRY, RR EVEN AND UNLABORED. PT GOWNED, PLACED ON HOSPITALIST MEDICAL DIRECTOR. PT STATES HE LEFT [facility] YESTERDAY AT 1900 AMA, NOW TODAY HE IS CONCERNED AND WANT TO BE RE ADMITTED. PT GOWNED, PLACED ON HOSPITALIST MEDICAL DIRECTOR. AWAITING ORDERS FROM PROVIDER
--- NOTE | 2016-11-23 02:59 | NUR ---
TELE [id number]
--- NOTE | 2016-11-23 03:07 | NUR ---
18G RIGHT AC IV STARTED, BLOOD SAMPLE OBTAINED AND SENT TO LAB
[2016-11-23 03:12] LABS: BASOPHILS % (AUTO) 0.3 % (0.0-2.0); EOSINOPHILS # (AUTO) 0.1 /CMM (0.0-0.7); HEMATOCRIT 29 % (39-51); HEMOGLOBIN 9.7 g/dL (13.5-17.5); LYMPHOCYTES # (AUTO) 0.8 /CMM (0.8-4.8); LYMPHOCYTES % (AUTO) 11.9 % (20.0-44.0); MEAN CORPUSCULAR HEMOGLOBIN 32 PG (26.0-33.0); MEAN CORPUSCULAR HGB CONC 34 g/dl (31.0-36.0); MEAN CORPUSCULAR VOLUME 93 fL (80-96); MONOCYTES # (AUTO) 0.8 /CMM (0.1-1.30); NEUTROPHILS # (AUTO) 5.3 /CMM (1.8-8.9); NEUTROPHILS % (AUTO) 74.8 % (43.0-81.0); PLATELET COUNT (AUTO) 196 /CMM (150-450); RDW COEFFICIENT OF VARIATION 14.9 (11.5-15.0); RED BLOOD CELL COUNT(AUTO) 3.07 MIL/uL (4.5-6.0)
[2016-11-23 03:21] LABS: CALCIUM, SERUM 8.1 mg/dL (8.5-10.1); CREATININE 0.7 mg/dL (0.6-1.3); POTASSIUM 3.2 mmol/L (3.5-5.1)
[2016-11-23 03:26] LABS: INR 1.22 (0.87-1.13); PROTHROMBIN TIME 12.7 SECS (9.5-12.7)
[2016-11-23 03:29] LABS: TROPONIN I 0.137 ng/mL (0.00-0.056)
--- NOTE | 2016-11-23 03:38 | NUR ---
Shameka Fuentes MD called
[2016-11-23] MEDS ORDERED: NITROGLYCERIN 0.4 MG/TAB BOTTLE ONE (04:00)
[2016-11-23] MEDS ORDERED: NITROGLYCERIN 0.4 MG/TAB BOTTLE SL ONE (04:00)
[2016-11-23 04:25] VITALS: BP 148/72
--- NOTE | 2016-11-23 04:25 | NUR ---
RN NOTES ADMITTED A 70 YEARS OLD MALE PT FROM ER VIA [facility] WITH PRIMARY DIAGNOSIS OF CHEST PAIN UNDER DR NYE. PT ALERT AND ORIENTED X4, NO SOB, NOT IN DISTRESS ON ROOM AIR AND TOLERATED WELL. PT STILL COMPLAINING OF CHEST PAIN, PER PT 11/20, DENIES NAUSEA AND VOMITTING. ATTACHED TO TELE MONITOR WHICH READS SINUS RHYTHM WITH BBB AT 72. SKIN AND BODY ASSESSMENT DONE WITH PICTURES TAKEN AND FILED IN THE CHART. KEPT BED IN THE LOWEST POSITION, LOCKED, SIDE RAILS X3 UP WITH CALL LIGHT WITHIN REACH. KEPT COMFORTABLE AND ATTENDED. ADMITTING ORDERS RECEIVED AND DANILO OUT. WILL CONTINUE TO MONITOR PT.
[2016-11-23 04:30] VITALS: BP 148/72
[2016-11-23] MEDS ORDERED: ENOXAPARIN SODIUM 40 MG/0.4 ML DISP.SYRIN SQ ONE (04:53)
[2016-11-23] MEDS ORDERED: DEXTROSE 50%-WATER 50 ML DISP.SYRIN IV PRN (05:00)
[2016-11-23] MEDS ORDERED: ENOXAPARIN SODIUM 40 MG/0.4 ML DISP.SYRIN SQ SCH ×2 (05:00→09:00)
[2016-11-23] MEDS ORDERED: IV NS 0.9% 1,000 ML BAG IV SCH (05:00)
[2016-11-23] MEDS ORDERED: NITROGLYCERIN PACKET 1 GM PACKET ONE (05:06)
[2016-11-23] MEDS ORDERED: MORPHINE SULFATE INJ 2 MG/ML DISP.SYRIN ONE (05:07)
[2016-11-23] MEDS: MORPHINE SULFATE INJ 2 MG/ML DISP.SYRIN IV PRN ×2 (05:08→08:57)
--- NOTE | 2016-11-23 05:08 | NUR ---
RN NOTES PT VERBALIZED CHEST PAIN 10/10, MORPHINE 2MG GIVEN IV. WILL CONTINUE TO MONITOR PT.
[2016-11-23] MEDS ORDERED: NITROGLYCERIN PACKET 1 GM PACKET TOP SCH (06:00)
[2016-11-23] MEDS: BLOOD SUGAR DIAGNOSTIC 1 EACH STRIP IN SCH ×2 (07:04→12:00)
[2016-11-23] MEDS: INSULIN REGULAR, HUMAN 100 UNIT/ML 3 ML VIAL SQ PRN (07:04)
[2016-11-23 07:30] LABS: BASOPHILS % (AUTO) 0.1 % (0.0-2.0); EOSINOPHILS # (AUTO) 0.1 /CMM (0.0-0.7); EOSINOPHILS % (AUTO) 1.4 % (0.0-6.0); HEMATOCRIT 29 % (39-51); HEMOGLOBIN 9.9 g/dL (13.5-17.5); LYMPHOCYTES # (AUTO) 0.9 /CMM (0.8-4.8); LYMPHOCYTES % (AUTO) 14.1 % (20.0-44.0); MEAN CORPUSCULAR HEMOGLOBIN 33 PG (26.0-33.0); MEAN CORPUSCULAR HGB CONC 35 g/dl (31.0-36.0); MEAN CORPUSCULAR VOLUME 94 fL (80-96); MONOCYTES # (AUTO) 0.8 /CMM (0.1-1.30); MONOCYTES % (AUTO) 12.5 % (2.0-12.0); NEUTROPHILS # (AUTO) 4.7 /CMM (1.8-8.9); NEUTROPHILS % (AUTO) 71.9 % (43.0-81.0); PLATELET COUNT (AUTO) 192 /CMM (150-450); RDW COEFFICIENT OF VARIATION 15.1 (11.5-15.0); RED BLOOD CELL COUNT(AUTO) 3.02 MIL/uL (4.5-6.0); WHITE BLOOD COUNT (AUTO) 6.5 K/uL (4.3-11.0)
--- NOTE | 2016-11-23 07:35 | NUR ---
ROLL ICER MACHINE OPENING NOTE RECEIVED SBAR REPORT AT THE BEDSIDE. PATIENT IS IN BED AWAKE, A/O X4. PATIENT COMPLAINS OF PAIN THROUGHOUT THE FOREHEAD RADIATING TO BED RATING 4/10 ON A PAIN SCALE. PRESENTS WITH NON LABORED BREATHING. CHEST RISING EQUALLY BILATERALLY. DENIES CHEST PAIN AT THIS TIME. EXTERNAL PRACTICE SUPPORT SPECIALIST READING SR BBB HR 76. BED IS LOCKED, AT LOWEST POSITION. SIDE RAILS UP X2. CALL LIGHT WITHIN REACH. EDUCATED PATIENT TO CALL FOR HELP/ASSISTANCE USING A CALL LIGHT VIA TEACH BACK METHOD. PATIENT VERBALIZED UNDERSTANDING. ALL NEEDS ARE MET. WILL CONTINUE TO ASSESS/MONITOR THROUGHOUT THE SHIFT.
--- NOTE | 2016-11-23 07:40 | NUR ---
RN NOTES PT ASLEEP, HOB ELEVATED, NOT IN DISTRESS, ON ROOM AIR AND TOLERATED WELL. VITAL SIGNS STABLE, NO EPISODE OF NAUSEA AND VOMITING. TELEMONITOR READS SINUS RHYTHM WITH BBB AT 75. KEPT PAIN AT TOLERABLE LEVEL. KEPT PT ON NPO ORDERED. FALL PRECAUTION OBSERVED. ENDORSED TO MORNING RN FOR CONTINUITY OF CARE.
[2016-11-23 07:47] LABS: CALCIUM, SERUM 8.1 mg/dL (8.5-10.1); CREATININE 0.7 mg/dL (0.6-1.3); POTASSIUM 3.1 mmol/L (3.5-5.1)
[2016-11-23 08:00] VITALS: BP 147/75
[2016-11-23] MEDS ORDERED: IV NS 0.9% 1,000 ML IV PRN (08:00)
[2016-11-23] MEDS ORDERED: METOPROLOL TARTRATE 25 MG TABLET PO SCH ×2 (09:00→09:30)
[2016-11-23] MEDS: PANTOPRAZOLE 40 MG TABLET.DR PO SCH (09:03)
--- NOTE | 2016-11-23 09:07 | NUR ---
HOSPICE CARE CONSULTANT NOTE DR NYE AT THE BEDSIDE.
[2016-11-23] MEDS: DIVALPROEX SODIUM 250 MG TABLET.DR PO SCH ×2 (09:30→17:00)
[2016-11-23] MEDS: TEMAZEPAM 15 MG CAPSULE PO SCH ×2 (09:30→21:59)
[2016-11-23] MEDS ORDERED: DIPHENOXYLATE HCL/ATROP SULF 1 UDTAB TABLET PO PRN (09:30)
[2016-11-23] MEDS: TRAZODONE 50 MG TABLET PO SCH ×2 (09:30→21:58)
[2016-11-23] MEDS ORDERED: ALBUTEROL HALF STRENGTH 1.25 MG/3 ML VIAL.NEB IH PRN (09:30)
[2016-11-23] MEDS ORDERED: Medication Not On Formulary EA (Naloxegol Oxalate (Movantik) 25 MG) PO SCH (09:30)
[2016-11-23] MEDS ORDERED: LORAZEPAM 1 MG TABLET PO PRN (09:30)
[2016-11-23] MEDS: ATORVASTATIN 10 MG TABLET PO SCH ×2 (09:30→21:58)
[2016-11-23] MEDS: TAMSULOSIN 0.4 MG CAP.SR.24H PO SCH ×2 (09:30→21:58)
[2016-11-23] MEDS ORDERED: CLONIDINE HCL 0.1 MG TABLET PO SCH (10:00)
[2016-11-23] MEDS ORDERED: FLUTICASONE/VILANTEROL 1 EACH BLST.W.DEV IH SCH (10:00)
[2016-11-23] MEDS: LEVETIRACETAM (250 MG) 250 MG TABLET PO SCH ×2 (10:00→17:00)
[2016-11-23] MEDS: SUCRALFATE 1 G/10 ML UDC PO SCH ×3 (10:00→21:00)
[2016-11-23] MEDS ORDERED: PANTOPRAZOLE 40 MG TABLET.DR PO SCH (10:02)
[2016-11-23] MEDS: FLUOXETINE HCL 20 MG CAPSULE PO SCH (10:03)
--- NOTE | 2016-11-23 10:12 | NUR ---
LABORATORY SCIENTISTWELDING MANAGER NON-ADMIN NOTE PATIENT IS NPO AND IS TO BE TRANSFERRED TO [facility] INVESTIGATOR INTERNAL REVENUE FOR A PROCEDURE. PATIENT STATED HE DOES NOT TO WANT ANY MEDICATIONS AT THIS TIME.
--- NOTE | 2016-11-23 10:15 | NUR ---
ASP DEVELOPER NOTE SPOKE TO DR. MOHR ON THE PHONE. PER DR MOHR PATIENT IS TO BE TRANSFERRED TO [facility] BY AMBULANCE FOR THE PROCEDURE. DR. NYE IS AWARE. VERBAL ORDER RECEIVED TO DISCHARGE THE PATIENT AND TRANSFER TO [facility] VIA AMBULANCE. PER BREAKING MACHINE OPERATOR AMBULANCE SUBSTATION INSPECTOR TIME IS 1115. PATIENT IS NOTIFIED. MD IS NOTIFIED.
--- NOTE | 2016-11-23 10:52 | NUR ---
POWER SAW OPERATOR NOTE DISCHARGE INSTRUCTIONS PROVIDED TO THE PATIENT. PATIENT VERBALIZED FAIR UNDERSTANDING OF THE TEACHING.
[2016-11-23] MEDS: FLUTICASONE/VILANTEROL 1 EACH BLST.W.DEV IH SCH (11:00)
--- NOTE | 2016-11-23 11:18 | NUR ---
COATER ASSOCIATETRAFFIC ANALYST-TRANSFER NOTE PATIENT IS LEAVING THE UNIT IS STABLE CONDITION ACCOMPANIED BY THE AMBULANCE STAFF. VS WNL. DENIES CHEST PAIN. RAC 18 GAUGE ANGIOCATHETER LEFT IN PLACE PER MS REQUEST. EXTERNAL MONITOR READING SR BBB 74. DISCHARGE INSTRUCTIONS PROVIDED TO THE PATIENT. REPORT GIVEN TO AMBULANCE STAFF. Addendum: 11/23/16 at 1122 by SHARLENE ALANIZ RN PATIENT IS GOING TO [facility]. DR. NYE NOTIFIED.
[2016-11-23] MEDS: NITROGLYCERIN PACKET 1 GM PACKET TOP SCH ×2 (12:00→18:00)
[2016-11-23 18:06] VITALS: BP 140/66
--- NOTE | 2016-11-23 18:06 | NUR ---
MS RN NOTE PATIENT RETURNED TO THE UNIT FROM [facility] WHERE HE UNDERWENT LEFT HEART CATHETERIZATION CONDUCTED BY DOCTOR BORA. . PATIENT RETURNED VIA GURNEY ACCOMPANIED BY AMBULANCE STAFF.PATIENT IS IN STABLE CONDITION. RECEIVED TELEPHONE REPORT FROM A NURSE AT [facility], DAISHA BURNETT THAT PATIENT RECEIVED HYDRALAZINE 10 MG, LABETALOL 10MG, AND MORPHINE 2 MG IV PUSH AT 1630. PATIENT IS SAFELY ACCOMPANIED TO THE BED. BED IS LOCKED IN THE LOWEST POSITION, SIDE RAILS UP X 2, BED ALARM ON, CALL LIGHT ACCESSIBLE. ALL NEEDS ARE MET. VS WNL.
--- NOTE | 2016-11-23 19:30 | NUR ---
RN NOTES: RECEIVED LYING COMFORTABLY IN BED, NOT IN ANY PAIN OR DISCOMFORT,NO LABORED BREATHING, NO SOB NOTED,ON 02 VIA NASAL CANNULA,PRESSURE DRESSING ON THE RFA,S/P LEFT HEART CATHETERIZATION ON THE RIGHT RADIAL WILL CONTINUE TO OBSERVED FOR SIGN OF BLEEDING,FALL,SAFETY,SEIZURE AND ASPIRATION PRECAUTION OBSERVE, PER ENDORSEMENT PATIENT ALREADY EAT DINNER FROM [facility] AFTER THE PROCEDURE,BED LOW AND LOCKED, CALL LIGHT WITHIN EASY REACH, ON FREQUENT VISUAL CHECK.
--- NOTE | 2016-11-23 19:45 | NUR ---
COMPUTER SYSTEMS INFORMATION DIRECTOR CLOSING NOTE GAVE SBAR REPORT AT THE BEDSIDE. PATIENT IS IN BED AWAKE, A/O X4. CHEST RISING EQUALLY BILATERALLY. DENIES CHEST PAIN AT THIS TIME. EXTERNAL VINE PRUNER READING SR BBB HR 69. BED IS LOCKED, AT LOWEST POSITION. SIDE RAILS UP X2. CALL LIGHT WITHIN REACH. EDUCATED PATIENT TO CALL FOR HELP/ASSISTANCE USING A CALL LIGHT VIA TEACH BACK METHOD. PATIENT VERBALIZED UNDERSTANDING. ALL NEEDS ARE MET.ENDORSED TO THE MAINTENANCE MECHANIC HELPER FOR HALLIE.
[2016-11-23 20:00] VITALS: BP_SYST 134; BP_DIAS 59; BP_DIAS 60
[2016-11-23] MEDS: oxyCODONE/APAP (5/325 MG) 1 UDTAB TABLET PO SCH (22:00)
--- NOTE | 2016-11-23 22:01 | NUR ---
RN NOTES: BLOOD SUGAR CHECKED 123, NO INSULIN GIVEN PER SCALE, COMPLAINED OF HEADACHE /, ROUTINE PAIN MEDICATION-PERCOCET GIVEN.
--- NOTE | 2016-11-23 23:00 | NUR ---
RN NOTES: ABLE TO SLEEP AND REST AFTER PAIN MEDICATION GIVEN,BREATHING SPONTANEOUSLY NO SIGN OF RESPIRATORY DISTRESS NOTED,KEPT COMFORTABLE IN BED, CALL LIGHT WITHIN EASY REACH.
[2016-11-24] VITALS: BP 118/56
[2016-11-24 04:00] VITALS: BP 127/64
[2016-11-24] MEDS: oxyCODONE/APAP (5/325 MG) 1 UDTAB TABLET PO SCH ×3 (05:01→20:52)
--- NOTE | 2016-11-24 05:03 | NUR ---
RN NOTES: -AT 0349 IVF ON NS AT 75 ML/HR NEW BAG STARTED. -AT 0500 PATIENT IS AWAKE,IVF ONGOING, COMPLAINED OF HEADACHE 6/10,PERCOCET ROUTINE DOSE GIVEN PER PATIENT REQUEST.NON PHARMACOLOGIC INTERVENTION RENDERED, PLAYED SOFT MUSIC AND DIM LIGHT THE ROOM, CALL LIGHT WITHIN EASY REACH.
[2016-11-24] MEDS: NITROGLYCERIN PACKET 1 GM PACKET TOP SCH ×4 (06:00→17:03)
--- NOTE | 2016-11-24 06:17 | NUR ---
RN NOTES: ASLEEP, BLOOD SUGAR CHECKED-94, NO INSULIN GIVEN PER SCALE, WILL CONTINUE TO MONITOR FOR SIGN OF HYPER AND HYPOGLYCEMIA.MORNING CARE RENDERED, CLEAN AND CHANGE.
[2016-11-24] MEDS: BLOOD SUGAR DIAGNOSTIC 1 EACH STRIP IN SCH ×6 (06:34→21:03)
[2016-11-24] MEDS: INSULIN REGULAR, HUMAN 100 UNIT/ML 3 ML VIAL SQ PRN ×2 (06:34→21:08)
--- NOTE | 2016-11-24 06:37 | NUR ---
RN NOTES: ON TELE MONITOR SINUS RHYTHM-69,IVF INFUSING,ASLEEP, ENDORSED FOR CONTINUITY OF CARE.
--- NOTE | 2016-11-24 07:20 | NUR ---
RN NOTES PT IS IN BED, SLEEPING COMFORTABLY. PT ON 2L O2, RESPIRATIONS ARE EVEN AND UNLABORED. IV ON RAC INTACT AND PATENT, RUNNING NS @ 75ML/HR. SAFETY MEASURES ARE IN PLACE, CALL LIGHT IS IN REACH. WILL CONTINUE TO MONITOR.
[2016-11-24] MEDS: PANTOPRAZOLE 40 MG TABLET.DR PO SCH (07:30)
[2016-11-24 08:00] VITALS: BP 140/59
[2016-11-24] MEDS: DIVALPROEX SODIUM 250 MG TABLET.DR PO SCH ×4 (09:00→16:56)
[2016-11-24] MEDS: LEVETIRACETAM (250 MG) 250 MG TABLET PO SCH ×2 (09:00→16:56)
[2016-11-24] MEDS: SUCRALFATE 1 G/10 ML UDC PO SCH ×5 (09:00→21:04)
[2016-11-24] MEDS: FLUOXETINE HCL 20 MG CAPSULE PO SCH (09:37)
[2016-11-24] MEDS: FLUTICASONE/VILANTEROL 1 EACH BLST.W.DEV IH SCH (09:37)
[2016-11-24] MEDS: MORPHINE SULFATE INJ 2 MG/ML DISP.SYRIN IV PRN ×2 (09:37→14:35)
[2016-11-24] MEDS: ENOXAPARIN SODIUM 40 MG/0.4 ML DISP.SYRIN SQ SCH (09:42)
[2016-11-24 12:00] VITALS: BP 157/78
--- NOTE | 2016-11-24 12:00 | NUR ---
RN NOTES EMAR SHOWED MISSING DOSES WHILE PATIENT WAS AT [facility]. NON-ADMIN PUT FOR MOST RECENT DOSES TO FIX EMAR ERROR. LAST DOSE GIVEN ORDERED.
[2016-11-24 12:01] LABS: TROPONIN I 0.092 ng/mL (0.00-0.056)
[2016-11-24 12:07] LABS: CALCIUM, SERUM 8.5 mg/dL (8.5-10.1); CREATININE 0.7 mg/dL (0.6-1.3)
[2016-11-24] MEDS ORDERED: FUROSEMIDE 20 MG/2 ML VIAL IV ONE (13:00)
[2016-11-24] MEDS ORDERED: POTASSIUM CHLORIDE 20 MEQ TAB.PRT.SR PO ONE (14:30)
[2016-11-24 16:00] VITALS: BP 146/73
--- NOTE | 2016-11-24 19:06 | NUR ---
ADVERTISER OPENING NOTES PATIENT RESTING IN BED A/O X 2-3, NO ACUTE DISTRESS NOTED. BREATHING EVEN AND UNLABORED, NO SOB NOTED. SAFETY MEASURES IN PLACE, BED LOCKED AND IN LOWEST POSITION, CALL LIGHT IN REACH. WILL CONTINUE TO MONITOR.
--- NOTE | 2016-11-24 19:30 | NUR ---
RN NOTES PT IS IN BED, RESTING COMFORTABLY. PT ON RA, RESPIRATIONS ARE EVEN AND UNLABORED. IV ON RAC INTACT AND PATENT, SL. ALL PT NEEDS WERE MET, ALL MEDS GIVEN ORDERED. PT KEPT CLEAN AND CHANGED NEEDED. SAFETY MEASURES ARE IN PLACE, CALL LIGHT IS IN REACH. WILL ENDORSE TO COLLAR STITCHER RN FOR CONTINUITY OF CARE.
[2016-11-24 20:00] VITALS: BP 150/80
[2016-11-24] MEDS: CARVEDILOL 12.5 MG TABLET PO SCH (21:05)
[2016-11-24] MEDS: TRAZODONE 50 MG TABLET PO SCH (21:05)
[2016-11-24] MEDS: TEMAZEPAM 15 MG CAPSULE PO SCH (21:06)
[2016-11-24] MEDS: TAMSULOSIN 0.4 MG CAP.SR.24H PO SCH (21:06)
[2016-11-24] MEDS: ATORVASTATIN 10 MG TABLET PO SCH (21:06)
[2016-11-25] VITALS: BP 159/67
[2016-11-25] MEDS: NITROGLYCERIN PACKET 1 GM PACKET TOP SCH ×2 (01:04→05:14)
[2016-11-25] MEDS: MORPHINE SULFATE INJ 2 MG/ML DISP.SYRIN IV PRN ×2 (01:05→12:06)
[2016-11-25 04:00] VITALS: BP 163/80
[2016-11-25] MEDS: oxyCODONE/APAP (5/325 MG) 1 UDTAB TABLET PO SCH ×2 (05:14→12:04)
[2016-11-25] MEDS: INSULIN REGULAR, HUMAN 100 UNIT/ML 3 ML VIAL SQ PRN ×2 (05:19→12:19)
[2016-11-25] MEDS: BLOOD SUGAR DIAGNOSTIC 1 EACH STRIP IN SCH ×2 (05:23→12:05)
--- NOTE | 2016-11-25 06:20 | NUR ---
GRANT COORDINATOR CLOSING NOTES PATIENT COMFORTABLY ASLEEP AND EASILY AWAKEN, ATTACH TO TELE MONITOR, HEAD OF BED ELEVATED FOR BETTER LUNG EXPANSION, TOLERATING ROOM AIR 02 SAT 98% IV SITE NO S/S OF INFILTRATED PATENT AND FLUSHED, RESPIRATIONS EVEN AND UNLABORED. NO S/S OF ACUTE DISTRESS, NO SOB, SKIN WARM AND DRY TO TOUCH, AFEBRILE, ALL NURSING CARE RENDERED, NEEDS ATTENDED AND ANTICIPATED, KEPT CLEAN AND DRY AND COMFORTABLE, GOOD SKIN CARE PROVIDED. FREQUENT VISUAL CHECK DONE FOR SAFETY EVERY 2 HOURS. SAFE HAZARD FREE ENVIRONMENT PROVIDED. CALL LIGHT WITHIN EASY TO REACH, ON LOW BED AT ALL TIMES TO ENSURE SAFETY, WILL ENDORSE TO THE NEXT SHIFT CONTINUE PLAN OF CARE. NO NAUSEA AND VOMITING NO COMPLAINS OF CHEST PAIN
[2016-11-25 06:59] LABS: BASOPHILS % (AUTO) 0.2 % (0.0-2.0); EOSINOPHILS # (AUTO) 0.2 /CMM (0.0-0.7); EOSINOPHILS % (AUTO) 2.1 % (0.0-6.0); HEMATOCRIT 32 % (39-51); HEMOGLOBIN 10.5 g/dL (13.5-17.5); LYMPHOCYTES # (AUTO) 0.9 /CMM (0.8-4.8); LYMPHOCYTES % (AUTO) 9.2 % (20.0-44.0); MEAN CORPUSCULAR HEMOGLOBIN 31 PG (26.0-33.0); MEAN CORPUSCULAR HGB CONC 33 g/dl (31.0-36.0); MEAN CORPUSCULAR VOLUME 95 fL (80-96); MONOCYTES # (AUTO) 0.6 /CMM (0.1-1.30); MONOCYTES % (AUTO) 6.4 % (2.0-12.0); NEUTROPHILS # (AUTO) 8.3 /CMM (1.8-8.9); NEUTROPHILS % (AUTO) 82.1 % (43.0-81.0); PLATELET COUNT (AUTO) 254 /CMM (150-450); RDW COEFFICIENT OF VARIATION 15.1 (11.5-15.0); RED BLOOD CELL COUNT(AUTO) 3.36 MIL/uL (4.5-6.0); WHITE BLOOD COUNT (AUTO) 10.1 K/uL (4.3-11.0)
[2016-11-25 07:04] VITALS: BP 155/62
--- NOTE | 2016-11-25 07:10 | NUR ---
RN NOTES PT IS IN BED, AWAKE AND RESTING COMFORTABLY. PT ON RA, RESPIRATIONS ARE EVEN AND UNLABORED. IV ON RAC INTACT AND PATENT, SL. PT HAS NO SIGNS OF PAIN AT THIS TIME BUT WAS UNABLE TO SLEEP DURING THE NIGHT. SAFETY MEASURES ARE IN PLACE, CALL LIGHT IS IN REACH. WILL CONTINUE TO MONITOR.
[2016-11-25 07:19] LABS: CALCIUM, SERUM 9.1 mg/dL (8.5-10.1); CREATININE 0.8 mg/dL (0.6-1.3); MAGNESIUM 1.3 mg/dL (1.8-2.4); PHOSPHORUS 1.4 mg/dL (2.5-4.9); POTASSIUM 3.8 mmol/L (3.5-5.1)
[2016-11-25 08:00] VITALS: BP 154/80
[2016-11-25] MEDS: SUCRALFATE 1 G/10 ML UDC PO SCH ×3 (08:05→16:31)
[2016-11-25] MEDS: PANTOPRAZOLE 40 MG TABLET.DR PO SCH (08:06)
[2016-11-25] MEDS: LEVETIRACETAM (250 MG) 250 MG TABLET PO SCH ×2 (08:06→16:31)
[2016-11-25] MEDS: FLUOXETINE HCL 20 MG CAPSULE PO SCH (08:06)
[2016-11-25] MEDS: DIVALPROEX SODIUM 250 MG TABLET.DR PO SCH ×3 (08:06→16:31)
[2016-11-25] MEDS: CARVEDILOL 12.5 MG TABLET PO SCH (08:06)
[2016-11-25] MEDS: FLUTICASONE/VILANTEROL 1 EACH BLST.W.DEV IH SCH (08:06)
[2016-11-25] MEDS: ENOXAPARIN SODIUM 40 MG/0.4 ML DISP.SYRIN SQ SCH (08:13)
[2016-11-25] MEDS ORDERED: ISOSORBIDE MONONITRATE (30MG) 30 MG TAB.SR.24H PO SCH (09:00)
[2016-11-25] MEDS ORDERED: CARVEDILOL 12.5 MG TABLET PO SCH (09:00)
[2016-11-25] MEDS ORDERED: ASPIRIN EC 81 MG TABLET.DR PO SCH (09:39)
[2016-11-25] MEDS ORDERED: CARV12.52 PO (11:32)
[2016-11-25] MEDS ORDERED: LISI10TA5 PO (11:32)
[2016-11-25] MEDS ORDERED: NITR1PAT5 TD (11:32)
[2016-11-25 12:00] VITALS: BP 155/65
[2016-11-25] MEDS ORDERED: MAGNESIUM OXIDE 400 MG TABLET PO ONE (12:30)
[2016-11-25] MEDS ORDERED: K PHOS NEUTRAL 250 MG TABLET PO ONE (13:30)
[2016-11-25 16:00] VITALS: BP 132/64
--- NOTE | 2016-11-25 17:32 | NUR ---
RN NOTES PT DISCHARGED TO [facility] IN STABLE CONDITION. ALL MEDS WERE GIVEN ORDERED AND PT NEEDS MET. BELONGINGS LIST WAS SIGNED AND DISCHARGE PAPER SIGNED. IV AND ID BAND WERE REMOVED. REPORT WAS GIVEN TO GIO FROM [facility]. PT WAS TRANSPORTED BY AMBULANCE STAFF TO FACILITY.
== END 2016-11-25 17:30 | DRG 282 ==
LOC: ER 02:40 → TELE 03:58 → MED 11-25 12:10
PROVIDERS: ADMIT Legal Medicine; ATTEND Legal Medicine
PROC: 4A023N7 Measurement of Cardiac Sampling and Pressure, Left Heart, Percutaneous Approach (ICD-10-PCS; principal; 2016-11-23)
PROC: B211YZZ Fluoroscopy of Multiple Coronary Arteries using Other Contrast (ICD-10-PCS; 2016-11-23)
DX: I21.4 Non-ST elevation (NSTEMI) myocardial infarction (principal); E11.9 Type 2 diabetes mellitus without complications; G90.8 Other disorders of autonomic nervous system; F03.90 Unspecified dementia, unspecified severity, without behavioral disturbance, psychotic disturbance, mood disturbance, and anxiety; D63.8 Anemia in other chronic diseases classified elsewhere; D50.9 Iron deficiency anemia, unspecified; E78.5 Hyperlipidemia, unspecified; E87.6 Hypokalemia; F41.9 Anxiety disorder, unspecified; I10 Essential (primary) hypertension; J45.909 Unspecified asthma, uncomplicated; G40.909 Epilepsy, unspecified, not intractable, without status epilepticus; F17.200 Nicotine dependence, unspecified, uncomplicated; I25.10 Atherosclerotic heart disease of native coronary artery without angina pectoris; J44.9 Chronic obstructive pulmonary disease, unspecified; K21.9 Gastro-esophageal reflux disease without esophagitis; Z88.0 Allergy status to penicillin; Z95.0 Presence of cardiac pacemaker; R29.6 Repeated falls; S00.31XA Abrasion of nose, initial encounter; S80.212A Abrasion, left knee, initial encounter; X58.XXXA Exposure to other specified factors, initial encounter; Y93.9 Activity, unspecified; Y92.89 Other specified places as the place of occurrence of the external cause; F31.9 Bipolar disorder, unspecified; S00.81XA Abrasion of other part of head, initial encounter; F43.10 Post-traumatic stress disorder, unspecified
CPT/HCPCS: 36415; 71010-TC; 80048-TC; 82962-TC; 83540-TC; 83735-TC; 84100-TC; 84484-TC; 85025-TC; 85730-TC; 87081-TC; A6402; J1650; J1815; J1940; J2270; J7030

== ENCOUNTER 2017-09-29 22:42 | Emergency (ER) | payer MEDICARE, OTHER ==
[~2017-09-29] VITALS: Ht 167.6 cm; Wt 59.0 kg
[~2017-09-29 22:42] MED LIST changes: +ASPI-1152 PO; -ASPI-991 PO; +CARV12.52 PO; +LISI10TA5 PO; -METO25TA6 PO; +NITR1PAT5 TD; +OXYC-132 PO; -OXYC-28 PO; -SUCR1ORA2 PO; +SUCR1ORA4 PO; -TRAZ-144 PO; +TRAZ-182 PO
--- NOTE | 2017-09-29 23:00 | NUR ---
PT C/O LOWER ABD PAIN, HEADACHE, AND N/V WITHOUT BLOOD IN VOMIT OR STOOL X2 HRS PRODUCT HANDLER. A/OX4. SKIN WARM DRY. RESP EVEN UNLABORED. SPEECH CLEAR, NO NEURO DEFICITS NOTED. NO VOMITING NOTED AT THIS TIME BUT STILL FEELS NAUSEOUS. IN ER BED 02.
--- NOTE | 2017-09-29 23:15 | NUR ---
IV STARTED ON LEFT AC 20G, GOOD BLOOD RETURN, LABS DRAWN AND SENT TO LAB.
[2017-09-29 23:21] LABS: BASOPHILS % (AUTO) 0.1 % (0.0-2.0); EOSINOPHILS % (AUTO) 0.5 % (0.0-6.0); HEMATOCRIT 51 % (39-51); HEMOGLOBIN 16.8 g/dL (13.5-17.5); LYMPHOCYTES # (AUTO) 0.4 /CMM (0.8-4.8); MEAN CORPUSCULAR HEMOGLOBIN 33 PG (26.0-33.0); MEAN CORPUSCULAR HGB CONC 33 g/dl (31.0-36.0); MEAN CORPUSCULAR VOLUME 99 fL (80-96); MONOCYTES # (AUTO) 0.4 /CMM (0.1-1.30); MONOCYTES % (AUTO) 5.4 % (2.0-12.0); NEUTROPHILS # (AUTO) 6.9 /CMM (1.8-8.9); PLATELET COUNT (AUTO) 195 /CMM (150-450); RDW COEFFICIENT OF VARIATION 13.6 (11.5-15.0); RED BLOOD CELL COUNT(AUTO) 5.13 MIL/uL (4.5-6.0); WHITE BLOOD COUNT (AUTO) 7.7 K/uL (4.3-11.0)
[2017-09-29] MEDS ORDERED: ONDANSETRON HCL/PF 4 MG/2 ML VIAL ONE (23:29)
[2017-09-29] MEDS ORDERED: ONDANSETRON HCL/PF 4 MG/2 ML VIAL IV ONE (23:30)
[2017-09-29] MEDS ORDERED: IV NS 0.9% 1,000 ML BAG IV ONE (23:30)
--- NOTE | 2017-09-29 23:30 | NUR ---
OFFERED PT URINAL FOR UA SAMPLE, PT STATES HE DOES NOT HAVE THE URGE TO URINATE AT THIS TIME. PT AOX4.
[2017-09-29 23:34] LABS: CALCIUM, SERUM 9.5 mg/dL (8.5-10.1); CREATININE 1.2 mg/dL (0.6-1.3); POTASSIUM 3.8 mmol/L (3.5-5.1)
[2017-09-29 23:41] LABS: ALBUMIN 4.5 g/dL (3.4-5.0); BILIRUBIN,DIRECT 0.1 mg/dL (0.0-0.2); BILIRUBIN,TOTAL 0.4 mg/dL (0.2-1.0)
--- NOTE | 2017-09-30 00:24 | NUR ---
PT STILL REPORTS HE IS UNABLE TO URINATE DESPITE ATTEMPTING.
[2017-09-30] MEDS ORDERED: IV NS 0.9% 1,000 ML BAG IV ONE (00:30)
[2017-09-30 01:47] LABS: APPEARANCE,URINE CLEAR (CLEAR); BILIRUBIN,URINE NEGATIVE (NEGATIVE); BLOOD, URINE 1+ Ery/uL (NEGATIVE); COLOR,URINE YELLOW (YELLOW); KETONES,URINE NEGATIVE (NEGATIVE); LEUKOCYTE ESTERASE ,URINE NEGATIVE (NEGATIVE); NITRITE, URINE NEGATIVE (NEGATIVE); PROTEIN,URINE NEGATIVE (NEGATIVE); UGLUCOSE NEGATIVE (NEGATIVE); UROBILINOGEN,URINE 0.2 EU/dL (0.2)
[2017-09-30 02:06] LABS: BACTERIA,URINE None seen /HPF (None Seen); RBC,URINE 0-2 /HPF (0-2); SQUAMOUS EPITHELIAL CELL,UR Few /HPF (None Seen); WBC,URINE 0-2 /HPF (0-3)
--- NOTE | 2017-09-30 02:07 | NUR ---
CALLED [facility]; TRIP NUMBER [id number] ETA [id number]
--- NOTE | 2017-09-30 02:12 | NUR ---
CALLED [facility]ET[facility] BARRY, NOTIFIED THAT PT WILL BE SENT BACK WITH RX FOR ZOFRAN.
[2017-09-30 02:56] VITALS: BP 125/74
--- NOTE | 2017-09-30 02:58 | NUR ---
Patient discharged to [facility] in stable condition. Written and verbal after care instructions given. Patient verbalizes understanding of instruction. pt tolerated transfer to [facility]. pt vitals wnl with respirations even and unlabored. pt not c/o any n/v/d at this time. pt left with ambulance in stable condition.
== END 2017-09-30 02:57 ==
LOC: ER 22:45
DX: R19.7 Diarrhea, unspecified (principal); E86.0 Dehydration; I10 Essential (primary) hypertension; N40.0 Benign prostatic hyperplasia without lower urinary tract symptoms; G89.29 Other chronic pain; F32.9 Major depressive disorder, single episode, unspecified; F29 Unspecified psychosis not due to a substance or known physiological condition; E11.9 Type 2 diabetes mellitus without complications; E78.00 Pure hypercholesterolemia, unspecified; F17.200 Nicotine dependence, unspecified, uncomplicated; Z88.0 Allergy status to penicillin; Z88.6 Allergy status to analgesic agent; Z91.018 Allergy to other foods; Z91.013 Allergy to seafood; Z79.82 Long term (current) use of aspirin; Z79.899 Other long term (current) drug therapy
CPT/HCPCS: 36415; 80048; 80076; 81001; 83690; 84484; 85025; 96361; 96374; 99284; A4606; J2405; J7030 ×2; 81000-TC; Z7610

== ENCOUNTER 2017-10-25 16:48 | Emergency (ER) | payer MEDICARE, OTHER ==
[~2017-10-25] VITALS: Ht 167.6 cm; Wt 78.9 kg
--- NOTE | 2017-10-25 16:50 | NUR ---
PRESENTS TO ER C/O ABDOMINAL PAIN W/ N/V/D. DARK TARRY STOOL NOTED PER REPORT X 2 DAY. A/OX 4, BREATHING EVEN AND UNLABORED. NO SOB, NAD, VITALS STABLE. SAFETY AND COMFORT MEASURES IN PLACE. AWAITING MD ORDERS.
[2017-10-25] MEDS ORDERED: MORPHINE SULFATE INJ 2 MG/ML DISP.SYRIN IV ONE (17:30)
[2017-10-25] MEDS ORDERED: IV NS 0.9% 500 ML BAG IV ONE (17:30)
[2017-10-25] MEDS ORDERED: PANTOPRAZOLE 40 MG VIAL IV ONE (17:30)
[2017-10-25] MEDS ORDERED: ONDANSETRON HCL/PF 4 MG/2 ML VIAL IVP ONE (17:30)
[2017-10-25] MEDS ORDERED: PANTOPRAZOLE 40 MG VIAL ONE (17:34)
[2017-10-25] MEDS ORDERED: MORPHINE SULFATE INJ 4 MG/ML DISP.SYRIN ONE (17:35)
[2017-10-25] MEDS ORDERED: ONDANSETRON HCL/PF 4 MG/2 ML VIAL ONE (17:35)
--- NOTE | 2017-10-25 17:40 | NUR ---
NEW IV STARTED ON LAC, 20G. BLOOD DRAWN AND SENT TO LAB.
--- NOTE | 2017-10-25 17:46 | NUR ---
PATIENT MEDICATED PER MD ORDERS.
[2017-10-25 17:48] LABS: BASOPHILS % (AUTO) 0.6 % (0.0-2.0); EOSINOPHILS % (AUTO) 2.4 % (0.0-6.0); HEMATOCRIT 43 % (39-51); HEMOGLOBIN 14.1 g/dL (13.5-17.5); LYMPHOCYTES # (AUTO) 2.1 /CMM (0.8-4.8); LYMPHOCYTES % (AUTO) 30.5 % (20.0-44.0); MEAN CORPUSCULAR HEMOGLOBIN 33 PG (26.0-33.0); MEAN CORPUSCULAR HGB CONC 33 g/dl (31.0-36.0); MEAN CORPUSCULAR VOLUME 99 fL (80-96); MONOCYTES # (AUTO) 0.4 /CMM (0.1-1.30); MONOCYTES % (AUTO) 5.9 % (2.0-12.0); NEUTROPHILS # (AUTO) 4.2 /CMM (1.8-8.9); NEUTROPHILS % (AUTO) 60.6 % (43.0-81.0); PLATELET COUNT (AUTO) 198 /CMM (150-450); RDW COEFFICIENT OF VARIATION 13.8 (11.5-15.0); RED BLOOD CELL COUNT(AUTO) 4.33 MIL/uL (4.5-6.0); WHITE BLOOD COUNT (AUTO) 6.9 K/uL (4.3-11.0)
[2017-10-25 18:05] LABS: CALCIUM, SERUM 8.8 mg/dL (8.5-10.1); CARBON DIOXIDE 32 mmol/L (21-32); CHLORIDE 105 mmol/L (98-107); CREATININE 0.9 mg/dL (0.6-1.3); GLUCOSE 115 mg/dL (74-106); POTASSIUM 4.4 mmol/L (3.5-5.1); SODIUM SERUM 142 mmol/L (136-145); UREA NITROGEN, BLOOD 18 mg/dL (7-18)
[2017-10-25 18:09] LABS: ALANINE AMINOTRANSFERASE 11 U/L (12-78); ALBUMIN 3.5 g/dL (3.4-5.0); ALKALINE PHOSPHATASE 66 U/L (46-116); ASPARTATE AMINOTRANSFERASE 13 U/L (15-37); BILIRUBIN,DIRECT 0.1 mg/dL (0.0-0.2); BILIRUBIN,TOTAL 0.4 mg/dL (0.2-1.0); LIPASE 83 U/L (73-393); TOTAL PROTEIN, SERUM 7.2 g/dL (6.4-8.2); TROPONIN I < 0.017 ng/mL (0.00-0.056)
[2017-10-25 18:11] LABS: INR 1.13 (0.87-1.13)
--- NOTE | 2017-10-25 19:05 | NUR ---
Received report from Rosalino. Pt resting comfortably in bed. VSWendi.
--- NOTE | 2017-10-25 19:05 | NUR ---
REPORT GIVEN TO CASTILLO BURNETT FOR HALLIE.
--- NOTE | 2017-10-25 19:47 | NUR ---
[facility] CALLED ETA 2010 TRANSER #[id number]
[2017-10-25 20:05] VITALS: BP 165/80
--- NOTE | 2017-10-25 20:05 | NUR ---
REPORT GIVEN TO [facility] FOR HALLIE.
--- NOTE | 2017-10-25 20:06 | NUR ---
PT BEING TRANSFERRED BACK TO FACILITY VIA PRIVATE AMBULANCE. IV removed. Catheter intact and site benign. Pressure and 4x4 applied to site. No bleeding noted.Patient discharged to home in stable condition. Written and verbal after care instructions given. Patient verbalizes understanding of instruction.
== END 2017-10-25 20:09 | disposition home or self-care (01) ==
LOC: ER 16:49
DX: R10.84 Generalized abdominal pain (principal); R19.7 Diarrhea, unspecified; G89.29 Other chronic pain; M54.5 Low back pain; I10 Essential (primary) hypertension; E11.9 Type 2 diabetes mellitus without complications; R56.9 Unspecified convulsions; N40.0 Benign prostatic hyperplasia without lower urinary tract symptoms; F32.9 Major depressive disorder, single episode, unspecified; F29 Unspecified psychosis not due to a substance or known physiological condition; E78.00 Pure hypercholesterolemia, unspecified; Z95.0 Presence of cardiac pacemaker; Z88.6 Allergy status to analgesic agent; Z88.0 Allergy status to penicillin; Z91.013 Allergy to seafood; Z91.018 Allergy to other foods; F17.200 Nicotine dependence, unspecified, uncomplicated; Z79.82 Long term (current) use of aspirin
CPT/HCPCS: 36415; 71045; 74176; 80048; 80076; 83690; 84484; 85025; 85730; 93005; 96374; 96375; 99285; 99406; C9113; J2270; J2405; J7040

== ENCOUNTER 2017-11-25 17:12 | Emergency (ER) | payer MEDICARE, OTHER ==
[~2017-11-25] VITALS: Ht 167.6 cm; Wt 63.0 kg
--- NOTE | 2017-11-25 17:30 | NUR ---
BIB RA C/O VOMITING, BLOODY DIARRHEA, ABD PAIN X 2 DAYS SENT FROM SNF. PT AAOX3, VSS. DENIES CP, SOB, WEAKNESS @ THIS TIME. AWAITING EVAL BY MD/PA. WILL CONT TO MONITOR.
[2017-11-25] MEDS ORDERED: ONDANSETRON HCL/PF 4 MG/2 ML VIAL ONE (17:55)
[2017-11-25] MEDS ORDERED: ONDANSETRON HCL/PF 4 MG/2 ML VIAL IVP ONE (18:00)
[2017-11-25] MEDS ORDERED: IV NS 0.9% 500 ML BAG IV ONE (18:00)
--- NOTE | 2017-11-25 18:12 | NUR ---
MEDICATED FOR NAUSEA PER ERMD ORDER, PT CHRIS WELL.
[2017-11-25 18:17] LABS: BASOPHILS % (AUTO) 0.2 % (0.0-2.0); EOSINOPHILS % (AUTO) 0.6 % (0.0-6.0); HEMATOCRIT 52 % (39-51); HEMOGLOBIN 18.2 g/dL (13.5-17.5); LYMPHOCYTES # (AUTO) 0.6 /CMM (0.8-4.8); LYMPHOCYTES % (AUTO) 6.8 % (20.0-44.0); MEAN CORPUSCULAR HGB CONC 35 g/dl (31.0-36.0); MEAN CORPUSCULAR VOLUME 95 fL (80-96); MONOCYTES # (AUTO) 0.8 /CMM (0.1-1.30); MONOCYTES % (AUTO) 9.8 % (2.0-12.0); NEUTROPHILS # (AUTO) 6.9 /CMM (1.8-8.9); NEUTROPHILS % (AUTO) 82.6 % (43.0-81.0); PLATELET COUNT (AUTO) 209 /CMM (150-450); RDW COEFFICIENT OF VARIATION 13.4 (11.5-15.0); RED BLOOD CELL COUNT(AUTO) 5.43 MIL/uL (4.5-6.0); WHITE BLOOD COUNT (AUTO) 8.4 K/uL (4.3-11.0)
[2017-11-25 18:25] LABS: INR 1.08 (0.85-1.15)
[2017-11-25 18:30] LABS: CALCIUM, SERUM 9.8 mg/dL (8.5-10.1); CARBON DIOXIDE 28 mmol/L (21-32); CHLORIDE 104 mmol/L (98-107); CREATININE 1.3 mg/dL (0.6-1.3); GLUCOSE 160 mg/dL (74-106); POTASSIUM 4.2 mmol/L (3.5-5.1); SODIUM SERUM 143 mmol/L (136-145); UREA NITROGEN, BLOOD 25 mg/dL (7-18)
[2017-11-25 18:36] LABS: ALANINE AMINOTRANSFERASE 15 U/L (12-78); ALBUMIN 4.6 g/dL (3.4-5.0); ALKALINE PHOSPHATASE 96 U/L (46-116); ASPARTATE AMINOTRANSFERASE 16 U/L (15-37); BILIRUBIN,DIRECT 0.1 mg/dL (0.0-0.2); BILIRUBIN,TOTAL 0.6 mg/dL (0.2-1.0); LIPASE 95 U/L (73-393); TOTAL PROTEIN, SERUM 9.3 g/dL (6.4-8.2)
[2017-11-25 18:38] LABS: TROPONIN I < 0.017 ng/mL (0.00-0.056)
[2017-11-25 19:06] LABS: EOSINOPHILS % (MANUAL) 1 % (0-4); LYMPHOCYTES % (MANUAL) 8 % (16-48); MONOCYTES % (MANUAL) 9 % (0-11.0); NEUTROPHILS % (MANUAL) 82 (42-76)
--- NOTE | 2017-11-25 19:10 | NUR ---
RECEIVED REPORT FROM LEX BENÍTEZ FOR HALLIE.
--- NOTE | 2017-11-25 19:27 | NUR ---
URINE COLLECTED CALLED LAB FOR MAINTENANCE MGR
[2017-11-25 19:43] LABS: APPEARANCE,URINE Clear (CLEAR); BILIRUBIN,URINE MODERATE (NEGATIVE); BLOOD, URINE Moderate Ery/uL (NEGATIVE); COLOR,URINE Dark (YELLOW); KETONES,URINE 40 (NEGATIVE); LEUKOCYTE ESTERASE ,URINE Negative (NEGATIVE); NITRITE, URINE Negative (NEGATIVE); PH,URINE 5.5 (5.0-8.0); PROTEIN,URINE >=300 mg/dl (NEGATIVE); UGLUCOSE Negative (NEGATIVE); UROBILINOGEN,URINE 0.2 EU/dL (0.2)
[2017-11-25 20:07] LABS: SQUAMOUS EPITHELIAL CELL,UR Few /HPF (None Seen)
[2017-11-25 20:08] LABS: BACTERIA,URINE Moderate /HPF (None Seen); WBC,URINE 0-2 /HPF (0-3)
[2017-11-25 21:17] VITALS: BP 158/72
--- NOTE | 2017-11-25 21:19 | NUR ---
REPORT GIVEN TO EMT TRANSPORT TEAM ON BEHALF OF PRIMARY NURSE CASTILLO. TO BE TRANSPORTED BACK TO FACILITY. NO S/S OF DISTRESS NOTED. RESP EVEN AND UNLABORED.
--- NOTE | 2017-11-25 21:20 | NUR ---
IV removed. Catheter intact and site benign. Pressure and 4x4 applied to site. No bleeding noted.
== END 2017-11-25 21:22 | disposition home or self-care (01) ==
LOC: ER 17:14
DX: R31.9 Hematuria, unspecified (principal); K64.4 Residual hemorrhoidal skin tags; F17.200 Nicotine dependence, unspecified, uncomplicated; F31.9 Bipolar disorder, unspecified; I10 Essential (primary) hypertension; E78.00 Pure hypercholesterolemia, unspecified; E11.9 Type 2 diabetes mellitus without complications; R11.10 Vomiting, unspecified; R42 Dizziness and giddiness; Z88.0 Allergy status to penicillin; Z91.013 Allergy to seafood; Z91.018 Allergy to other foods; Z88.8 Allergy status to other drugs, medicaments and biological substances; Z79.82 Long term (current) use of aspirin
CPT/HCPCS: 36415; 80048; 80076; 81001; 83690; 84484; 85025; 85730; 86850; 87086; 93005; 96374; 99285; A4606; J2405; J7040; 81000-TC; Z7610

== ENCOUNTER 2018-04-21 10:56 | Emergency (ER) | payer MEDICARE, MEDICAID ==
[~2018-04-21] VITALS: Ht 167.6 cm; Wt 72.6 kg
--- NOTE | 2018-04-21 11:04 | NUR ---
PT BIBPA, FROM SNF, C/O ABD PAIN, +N/V, DIARRHEA x 3 DAYS, PT IS AAOX3, NOT IN RESPIRATORY DISTRESS, V/S STABLE, HOOKED TO MONITOR, KEPT RESTED AND COMFORTABLE. WILL CONTINUE TO MONITOR.
--- NOTE | 2018-04-21 11:05 | NUR ---
SEEN AND EXAMINED BY DR. VILLEGAS.
--- NOTE | 2018-04-21 11:10 | NUR ---
IV LINE ESTABLISHED, LABS DRAWNED AND SENT TO LAB.
[2018-04-21] MEDS ORDERED: METO-295 PO (11:12)
[2018-04-21] MEDS ORDERED: FLUT1BLS IH (11:12)
[2018-04-21] MEDS ORDERED: CARV25TA2 PO (11:12)
[2018-04-21] MEDS ORDERED: LISI10TA5 PO (11:12)
[2018-04-21 11:15] LABS: BASOPHILS % (AUTO) 0.2 % (0.0-2.0); EOSINOPHILS % (AUTO) 1.6 % (0.0-6.0); HEMATOCRIT 42 % (39-51); HEMOGLOBIN 14.1 g/dL (13.5-17.5); LYMPHOCYTES # (AUTO) 1.4 /CMM (0.8-4.8); LYMPHOCYTES % (AUTO) 23.3 % (20.0-44.0); MEAN CORPUSCULAR HGB CONC 34 g/dl (31.0-36.0); MEAN CORPUSCULAR VOLUME 96 fL (80-96); MONOCYTES # (AUTO) 0.6 /CMM (0.1-1.30); MONOCYTES % (AUTO) 10.9 % (2.0-12.0); NEUTROPHILS # (AUTO) 3.7 /CMM (1.8-8.9); PLATELET COUNT (AUTO) 185 /CMM (150-450); RED BLOOD CELL COUNT(AUTO) 4.37 MIL/uL (4.5-6.0); WHITE BLOOD COUNT (AUTO) 5.8 K/uL (4.3-11.0)
[2018-04-21 11:23] LABS: CALCIUM, SERUM 8.9 mg/dL (8.5-10.1); POTASSIUM 3.9 mmol/L (3.5-5.1)
[2018-04-21 11:29] LABS: ALBUMIN 3.2 g/dL (3.4-5.0); BILIRUBIN,DIRECT 0.1 mg/dL (0.0-0.2); BILIRUBIN,TOTAL 0.4 mg/dL (0.2-1.0)
--- NOTE | 2018-04-21 11:29 | NUR ---
DR NYE CALLED FOR A DR TO DR BURROUGHS
[2018-04-21] MEDS ORDERED: IV NS 0.9% 1,000 ML BAG IV ONE (11:30)
--- NOTE | 2018-04-21 11:41 | NUR ---
[facility] CALLED FOR A BLS TRANSPORT. ETA IS 60 MIN. TRIP # [id number]
[2018-04-21 13:12] VITALS: BP 131/76
--- NOTE | 2018-04-21 13:12 | NUR ---
IV removed. Catheter intact and site benign. Pressure and 4x4 applied to site. No bleeding noted. Patient discharged to home care facility in stable condition. Written and verbal after care instructions given. Patient verbalizes understanding of instruction.
== END 2018-04-21 13:14 | disposition home or self-care (01) ==
LOC: ER 10:56
DX: R10.84 Generalized abdominal pain (principal); F11.20 Opioid dependence, uncomplicated; R19.7 Diarrhea, unspecified; R56.9 Unspecified convulsions; I10 Essential (primary) hypertension; E78.5 Hyperlipidemia, unspecified; N40.0 Benign prostatic hyperplasia without lower urinary tract symptoms; E11.9 Type 2 diabetes mellitus without complications; F29 Unspecified psychosis not due to a substance or known physiological condition; F31.9 Bipolar disorder, unspecified; E78.00 Pure hypercholesterolemia, unspecified; F17.200 Nicotine dependence, unspecified, uncomplicated; Z90.49 Acquired absence of other specified parts of digestive tract; Z79.82 Long term (current) use of aspirin; Z88.0 Allergy status to penicillin; Z88.6 Allergy status to analgesic agent; Z91.013 Allergy to seafood; Z91.018 Allergy to other foods
CPT/HCPCS: 36415; 80048-TC; 80076-TC; 83690-TC; 85025-TC; J7030

== ENCOUNTER 2018-08-10 15:05 | Inpatient (IN) | payer MEDICARE, MEDICAID ==
[~2018-08-10] VITALS: Ht 167.6 cm; Wt 52.2 kg
[~2018-08-10 15:05] MED LIST changes: -CARV12.52 PO; +CARV25TA2 PO; +FLUT1BLS IH; -FLUT1DIS3 IH; +METO-295 PO; -NITR1PAT5 TD
--- NOTE | 2018-08-10 15:12 | NUR ---
PT GIUSEPPE FROM SNF FOR CP AND "SEIZURE; PT VERBALLY RESPONSIVE, PT AAOX2-3, -SOB, NAD NOTED, PT TO BED 9, VSS, PENDING MD SOLIS
[2018-08-10 15:44] LABS: BASOPHILS # (AUTO) 0.1 /CMM (0.0-0.2); HEMOGLOBIN 14.7 g/dL (13.5-17.5); MONOCYTES # (AUTO) 0.5 /CMM (0.1-1.30); NEUTROPHILS # (AUTO) 5.2 /CMM (1.8-8.9); NEUTROPHILS % (AUTO) 65.6 % (43.0-81.0); WHITE BLOOD COUNT (AUTO) 7.9 K/uL (4.3-11.0)
[2018-08-10 15:51] LABS: BASOPHILS % (AUTO) 0.8 % (0.0-2.0); EOSINOPHILS % (AUTO) 1.4 % (0.0-6.0); HEMATOCRIT 44 % (39-51); LYMPHOCYTES # (AUTO) 2.1 /CMM (0.8-4.8); LYMPHOCYTES % (AUTO) 26.2 % (20.0-44.0); MEAN CORPUSCULAR HGB CONC 33 g/dl (31.0-36.0); MEAN CORPUSCULAR VOLUME 96 fL (80-96); RED BLOOD CELL COUNT(AUTO) 4.59 MIL/uL (4.5-6.0)
[2018-08-10 16:04] LABS: CHLORIDE 104 mmol/L (98-107); POTASSIUM 3.4 mmol/L (3.5-5.1); SODIUM SERUM 144 mmol/L (136-145)
[2018-08-10 16:05] LABS: CALCIUM, SERUM 9.4 mg/dL (8.5-10.1); CARBON DIOXIDE 26 mmol/L (21-32); GLUCOSE 113 mg/dL (74-106)
[2018-08-10 16:13] LABS: CREATININE 0.9 mg/dL (0.6-1.3); UREA NITROGEN, BLOOD 18 mg/dL (7-18)
[2018-08-10 16:27] LABS: PLATELET COUNT (AUTO) 326 /CMM (150-450)
[2018-08-10] MEDS ORDERED: AZEL6DRO5 OP (17:05)
--- NOTE | 2018-08-10 17:17 | NUR ---
[facility] WAS CALLED. COMMUNITY HEALTH COORDINATOR WAS PAGED
--- NOTE | 2018-08-10 17:19 | NUR ---
CALLED [facility] FOR TELE BED
--- NOTE | 2018-08-10 17:28 | NUR ---
TELE BED 117-1 GIVEN
[2018-08-10] MEDS ORDERED: NITROGLYCERIN 0.4 MG/TAB BOTTLE SL PRN (17:30)
[2018-08-10] MEDS ORDERED: ASPIRIN 81 MG TAB.CHEW PO ONE (17:30)
[2018-08-10] MEDS ORDERED: MAG HYDROX/AL HYDROX/SIMETH 30 ML UDC PO PRN (17:30)
[2018-08-10] MEDS ORDERED: IV NS 0.9% 1,000 ML IV SCH (17:30)
[2018-08-10] MEDS ORDERED: DOCUSATE SODIUM 100 MG CAPSULE PO PRN (17:30)
[2018-08-10] MEDS ORDERED: ONDANSETRON HCL/PF 4 MG/2 ML VIAL IVP PRN (17:30)
[2018-08-10] MEDS ORDERED: ASPIRIN 81 MG TAB.CHEW ONE (17:46)
--- NOTE | 2018-08-10 18:29 | NUR ---
REPORT GIVEN TO RADHA RN FOR HALLIE; PT WILL BE TRANSPORTED TO 1ST FLOOR/WOO VIA ACLS PROTOCOL
--- NOTE | 2018-08-10 19:37 | NUR ---
CALLED [facility] FOR TELE BED
[2018-08-10 20:00] VITALS: BP 188/78
[2018-08-10 20:05] VITALS: BP 188/78
--- NOTE | 2018-08-10 20:05 | NUR ---
RN NOTE RECEIVED PATIENT FROM ER, AMBULATE WITH ASSIST, DX SYNCOPE, CHEST PAIN, NO RESPIRATORY DISTRESS NOTED, CHEST PAIN NOTED. PAIN ADDRESSED ACCORDINGLY, SKIN PICTURES TAKEN, BELONGING'S LIST IN THE CHART, RAC 18 GAUGE NOTED, NO S/S OF INFECTION/INFILTRATION NOTED, WILL CONTINUE TO MONITOR
[2018-08-10 21:00] VITALS: BP 163/78
[2018-08-10] MEDS: TAMSULOSIN 0.4 MG CAP.SR.24H PO SCH (21:17)
[2018-08-10] MEDS: TRAZODONE 50 MG TABLET PO SCH (21:17)
[2018-08-10] MEDS: SIMVASTATIN 20 MG TABLET PO SCH (21:17)
[2018-08-10] MEDS: MORPHINE SULFATE INJ 2 MG/ML DISP.SYRIN IV PRN (21:18)
[2018-08-10] MEDS ORDERED: LURASIDONE HCL 80 MG PO SCH (22:00)
[2018-08-10] MEDS: TEMAZEPAM 15 MG CAPSULE PO SCH (22:00)
[2018-08-11] VITALS (8 sets, daily range): BP systolic 119–181; BP diastolic 47–82
[2018-08-11] MEDS: MORPHINE SULFATE INJ 2 MG/ML DISP.SYRIN IV PRN (04:41)
--- NOTE | 2018-08-11 07:30 | NUR ---
UX ENGINEER OPENING NOTES RECEIVED BEDSIDE REPORT . PATIENT SLEEPING ABLE TO AROUSE WITH VOICE AND TOUCH A/O X3. SINUS ON THE MONITOR 70'S. NO SIGNS OR SYMPTOMS OF RESPIRATORY DISTRESS OR ACUTE PAIN. NO C/O CHEST PAIN. IVF TO RAC # 18 GAUGE RUNNING NS @ 50 ML/HR. SAFETY AND FALL PRECAUTIONS IN PLACE BED IN LOW POSITION CALL LIGHT WITHIN REACH WILL MONITOR LABS AND ACCORDINGLY.
[2018-08-11 07:58] LABS: BASOPHILS % (AUTO) 0.5 % (0.0-2.0); EOSINOPHILS % (AUTO) 1.8 % (0.0-6.0); HEMATOCRIT 42 % (39-51); HEMOGLOBIN 14.3 g/dL (13.5-17.5); LYMPHOCYTES # (AUTO) 1.3 /CMM (0.8-4.8); LYMPHOCYTES % (AUTO) 19.5 % (20.0-44.0); MEAN CORPUSCULAR HGB CONC 34 g/dl (31.0-36.0); MEAN CORPUSCULAR VOLUME 93 fL (80-96); MONOCYTES # (AUTO) 0.6 /CMM (0.1-1.30); MONOCYTES % (AUTO) 8.2 % (2.0-12.0); NEUTROPHILS # (AUTO) 4.8 /CMM (1.8-8.9); PLATELET COUNT (AUTO) 160 /CMM (150-450); RED BLOOD CELL COUNT(AUTO) 4.54 MIL/uL (4.5-6.0); WHITE BLOOD COUNT (AUTO) 6.8 K/uL (4.3-11.0)
[2018-08-11 08:05] LABS: CALCIUM, SERUM 8.8 mg/dL (8.5-10.1); CREATININE 0.8 mg/dL (0.6-1.3); MAGNESIUM 1.6 mg/dL (1.8-2.4); PHOSPHORUS 2.9 mg/dL (2.5-4.9); POTASSIUM 3.5 mmol/L (3.5-5.1)
[2018-08-11] MEDS: CLONIDINE HCL 0.1 MG TABLET PO SCH ×2 (08:13→17:06)
[2018-08-11] MEDS: ASPIRIN 81 MG TAB.CHEW PO SCH (08:13)
[2018-08-11] MEDS: LORAZEPAM 1 MG TABLET PO SCH ×2 (08:13→17:06)
[2018-08-11] MEDS: LEVETIRACETAM (250 MG) 250 MG TABLET PO SCH ×2 (08:13→17:06)
[2018-08-11] MEDS: DIVALPROEX SODIUM 250 MG TABLET.DR PO SCH ×3 (08:13→17:06)
[2018-08-11] MEDS: FLUTICASONE/VILANTEROL 1 EACH BLST.W.DEV IH SCH (08:14)
[2018-08-11] MEDS: SUCRALFATE 1 G/10 ML UDC PO SCH ×3 (08:14→17:06)
[2018-08-11] MEDS: FLUOXETINE HCL 20 MG CAPSULE PO SCH (08:15)
[2018-08-11 08:16] LABS: THYROID STIMULATING HORMONE 1.155 uIU/mL (0.358-3.74)
[2018-08-11] MEDS ORDERED: oxyCODONE/APAP (5/325 MG) 1 UDTAB TABLET PO PRN (08:30)
[2018-08-11] MEDS ORDERED: AZELASTINE NASAL SPRAY 30 ML BOTTLE NS SCH (09:00)
[2018-08-11] MEDS ORDERED: AZELASTINE OP SCH (09:00)
[2018-08-11] MEDS ORDERED: IV NS 0.9% 1,000 ML IV PRN (10:00)
[2018-08-11] MEDS ORDERED: ACETAMINOPHEN 325 MG TABLET PO PRN (11:30)
[2018-08-11] MEDS ORDERED: hydrALAZINE HCL IV 20 MG VIAL IV PRN (11:30)
--- NOTE | 2018-08-11 11:37 | NUR ---
BOLT THREADER NOTES RECEIVED ORDERS FOR TYLENOL PRN FOR C/O HEADACHE
--- NOTE | 2018-08-11 11:38 | NUR ---
CONFIRMED WITH NNEKA AGUILLON MECHANICAL ARTIST TO D/C DIONICIO ESQUIVELELASTLAUREN NOT AVAILABLE IN RX
[2018-08-11] MEDS: Magnesium 1GM/D5W 100ML PREMIX 100 ML IV SCH ×2 (12:45→13:45)
--- NOTE | 2018-08-11 17:01 | NUR ---
UA COLLECTED AND INFORMED LAB TO BODY MAKE UP ARTIST
[2018-08-11] MEDS ORDERED: IV NS 0.9% 1,000 ML BAG IV ONE (17:30)
[2018-08-11] MEDS ORDERED: IV NS 0.9% 1,000 ML IV ONE (17:30)
--- NOTE | 2018-08-11 17:30 | NUR ---
1 LITER NS TKO GIVEN PER ORDER FOR DECREASED B/P WITH ORTHOSTATIC B/P PER MD
--- NOTE | 2018-08-11 18:43 | NUR ---
SIX SIGMA PROJECT MANAGER NOTES NO SIGNIFICANT CHANGED THROUGHOUT SHIFT. PATIENT A/O X3. SINUS ON THE MONITOR 70'S. NO SIGNS OR SYMPTOMS OF RESPIRATORY DISTRESS OR ACUTE PAIN. NO C/O CHEST PAIN. IVF TO RAC # 18 GAUGE PATENT WITH GOOD BLOOD RETURN. UA COLLECTED ORDERED ORTHOSTATIC VITALS TAKEN AND REPORTED TO MD. PACE MAKER CHECKED MD AWARE SITTING IN CHAIR FOR DINNER SAFETY AND FALL PRECAUTIONS IN PLACE BED IN LOW POSITION CALL LIGHT WITHIN REACH
--- NOTE | 2018-08-11 19:08 | NUR ---
REPORT ENDORSED TO NOC
--- NOTE | 2018-08-11 19:33 | NUR ---
PHOTO TAKEN OF [facility] . POSSIBLE BUG BITE ACQUIRED AROUND 1700
[2018-08-11 19:38] LABS: APPEARANCE,URINE SL CLOUDY (CLEAR); BILIRUBIN,URINE NEGATIVE (NEGATIVE); BLOOD, URINE 1+ Ery/uL (NEGATIVE); COLOR,URINE YELLOW (YELLOW); KETONES,URINE NEGATIVE (NEGATIVE); LEUKOCYTE ESTERASE ,URINE NEGATIVE (NEGATIVE); NITRITE, URINE NEGATIVE (NEGATIVE); PROTEIN,URINE 2+ mg/dl (NEGATIVE); UGLUCOSE TRACE mg/dL (NEGATIVE)
[2018-08-11 19:49] LABS: BACTERIA,URINE None seen /HPF (None Seen); SQUAMOUS EPITHELIAL CELL,UR Rare /HPF (None Seen); WBC,URINE 0-2 /HPF (0-3)
--- NOTE | 2018-08-11 20:00 | NUR ---
COMMUNICATIONS ADVISOR OPENING NOTES PATIENT SLEEPING IN BED BUT EASILY AROUSABLE TO TACTILE STIMULI, A/O X3, ABLE TO VERBALIZED NEEDS AND CONCERNS, NSR WITH A-PACE ON THE MONITOR HR IN THE 60S AT THIS TIME, NO S/S OF SOB/ACUTE DISTRESS NOTED AT THIS TIME, NO C/O ACUTE PAIN OR CHEST PAIN, IVF TO RAC # 18 G S/L, ENDORSED A SMALL BUMP INCHING IN RFA, WILL F/U WITH MD, SAFETY AND FALL PRECAUTIONS IN PLACE, BED LOCKED AND LOW POSITION, CALL LIGHT WITHIN REACH, WILL CONTINUE TO MONITOR CLOSELY.
--- NOTE | 2018-08-11 20:50 | NUR ---
RN NOTES, CALLED DERDERIAN CLIENT PARTNER AND REPORT PATIENT C/O ITCHING IN RFA WITH SMALL BUMP POSSIBLE AN INSECT BITE, AND RECEIVED A NEW ORDER FOR BENADRYL PO 25MG Q6HRS PRN FOR ITCHING, NOTED AND CARRIED OUT.
[2018-08-11] MEDS ORDERED: diphenhydrAMINE HCL 25 MG CAPSULE PO PRN (21:00)
[2018-08-11] MEDS: TAMSULOSIN 0.4 MG CAP.SR.24H PO SCH (21:09)
[2018-08-11] MEDS: TRAZODONE 50 MG TABLET PO SCH (21:09)
[2018-08-11] MEDS: TEMAZEPAM 15 MG CAPSULE PO SCH (21:11)
[2018-08-11] MEDS: SIMVASTATIN 20 MG TABLET PO SCH (21:11)
[2018-08-12] VITALS (7 sets, daily range): BP systolic 111–158; BP diastolic 56–80
--- NOTE | 2018-08-12 06:55 | NUR ---
GRAD INTERN NOTES, PATIENT SLEEPING IN BED NO SOB/ACUTE DISTRESS NOTED AT THIS TIME, NO C/O ACUTE PAIN OR CHEST PAIN OR DISCOMFORT, IVF TO RAC # 18 G S/L, SAFETY AND FALL PRECAUTIONS IN PLACE, NO SIGNIFICANT CHANGE IN CONDITION DURING THE NIGHT, BED LOCKED AND LOW POSITION, CALL LIGHT WITHIN REACH, WILL ENDORSE CONTINUITY OF CARE TO ONCOMING NURSE.
[2018-08-12 07:19] LABS: BASOPHILS % (AUTO) 0.5 % (0.0-2.0); EOSINOPHILS % (AUTO) 1.9 % (0.0-6.0); HEMATOCRIT 41 % (39-51); HEMOGLOBIN 13.9 g/dL (13.5-17.5); LYMPHOCYTES # (AUTO) 1.7 /CMM (0.8-4.8); LYMPHOCYTES % (AUTO) 22.2 % (20.0-44.0); MEAN CORPUSCULAR HGB CONC 34 g/dl (31.0-36.0); MEAN CORPUSCULAR VOLUME 94 fL (80-96); MONOCYTES # (AUTO) 0.5 /CMM (0.1-1.30); MONOCYTES % (AUTO) 6.8 % (2.0-12.0); NEUTROPHILS # (AUTO) 5.3 /CMM (1.8-8.9); NEUTROPHILS % (AUTO) 68.6 % (43.0-81.0); PLATELET COUNT (AUTO) 153 /CMM (150-450); RED BLOOD CELL COUNT(AUTO) 4.38 MIL/uL (4.5-6.0); WHITE BLOOD COUNT (AUTO) 7.8 K/uL (4.3-11.0)
[2018-08-12 07:28] LABS: CALCIUM, SERUM 8.5 mg/dL (8.5-10.1); CREATININE 0.9 mg/dL (0.6-1.3); MAGNESIUM 1.7 mg/dL (1.8-2.4); PHOSPHORUS 2.1 mg/dL (2.5-4.9); POTASSIUM 3.5 mmol/L (3.5-5.1)
--- NOTE | 2018-08-12 07:53 | NUR ---
SUPERVISOR YARD NOTES, PATIENT SLEEPING IN BED NO SOB/ACUTE DISTRESS NOTED AT THIS TIME, NO C/O ACUTE PAIN OR CHEST PAIN OR DISCOMFORT, EASILY AROUUSABLE TO TO TACTILE AND VERBAL STIMULI, IVF TO RAC # 18 G S/L, SAFETY AND FALL PRECAUTIONS IN PLACE, BED LOCKED AND LOW POSITION, CALL LIGHT WITHIN REACH, , ON TELE MONITOR SR HR 67 , WILL CONT TO MONITOR
[2018-08-12] MEDS: LEVETIRACETAM (250 MG) 250 MG TABLET PO SCH ×2 (08:42→16:49)
[2018-08-12] MEDS: FLUTICASONE/VILANTEROL 1 EACH BLST.W.DEV IH SCH (08:42)
[2018-08-12] MEDS: SUCRALFATE 1 G/10 ML UDC PO SCH ×3 (08:42→16:50)
[2018-08-12] MEDS: DIVALPROEX SODIUM 250 MG TABLET.DR PO SCH ×3 (08:43→16:49)
[2018-08-12] MEDS: FLUOXETINE HCL 20 MG CAPSULE PO SCH (08:43)
[2018-08-12] MEDS: LORAZEPAM 1 MG TABLET PO SCH (08:43)
[2018-08-12] MEDS: ASPIRIN 81 MG TAB.CHEW PO SCH (08:45)
[2018-08-12] MEDS: CLONIDINE HCL 0.1 MG TABLET PO SCH (08:50)
[2018-08-12] MEDS: LOSARTAN POTASSIUM 50 MG TABLET PO SCH (09:56)
--- NOTE | 2018-08-12 09:59 | NUR ---
CENTER MEDICAL SPECIALIST NOTE SEEN BY DR BRIAN WITH NEW ORDER GIVEN ENMANUEL
--- NOTE | 2018-08-12 10:02 | NUR ---
DISPLAY DIRECTOR NOTE TRIED TO AMBULATE PATIENT , ABLE TO MAKE FEW STEPS WITH MIN ASSISTANCE , BUT FEELS DIZZY, BACK TO BED WILL MONITOR WILL TRY AGAIN LATTER ON , REPORTED TO DR BRIAN ABOUT DIZZINESS
--- NOTE | 2018-08-12 10:15 | NUR ---
EDUCATION PROGRAM ASSOCIATE NOTE SUPINE BP 141/56 SITTING 148/65 STANDING 111/80, REPORTED TO DR BRIAN
[2018-08-12] MEDS: IV NS 0.9% 1,000 ML IV SCH ×2 (10:20→16:52)
[2018-08-12] MEDS: Magnesium 1GM/D5W 100ML PREMIX 100 ML IV SCH ×2 (11:04→12:10)
--- NOTE | 2018-08-12 12:52 | NUR ---
MS RN NOTE PER vKng CALLAHAN TO S D\C ATIVAN PATIENT COME WITH DX SYNCOPE
[2018-08-12] MEDS ORDERED: K PHOS NEUTRAL 250 MG TABLET PO ONE (13:00)
--- NOTE | 2018-08-12 15:48 | NUR ---
ms rn note sleeping bu easily response to verbal and tactily stimuli, blood sugar checked 122mg\ dl , will monitor bp 135/69 sat 95%, no sob noted
[2018-08-12] MEDS: ENSURE ENLIVE 237 ML LIQUID (VANILLA) PO SCH (18:09)
--- NOTE | 2018-08-12 18:47 | NUR ---
MS RN NOTE HAVING DINNER , ABLE TO EAT SELF, NO C\O DISCOMFORT AT THIS TIME, ON IVF ORDERED , WILL CONT TO MONITOR
--- NOTE | 2018-08-12 19:40 | NUR ---
SUPPORT GROUP MANAGER OPENING NOTES PATIENT IN BED AWAKE A/O X3, ABLE TO VERBALIZED NEEDS AND CONCERNS, NO S/S OF SOB/ACUTE DISTRESS NOTED AT THIS TIME, NO C/O ACUTE PAIN OR CHEST PAIN, IV SITE RAC # 18 G STILL RUNNING THE LAST BAG OF IVF, NO INFILTRATION NOTED AT SITE, SAFETY AND FALL PRECAUTIONS IN PLACE, BED LOCKED AND LOW POSITION, CALL LIGHT WITHIN REACH, WILL CONTINUE TO MONITOR CLOSELY.
[2018-08-12] MEDS: TAMSULOSIN 0.4 MG CAP.SR.24H PO SCH (21:28)
[2018-08-12] MEDS: TEMAZEPAM 15 MG CAPSULE PO SCH (21:28)
[2018-08-12] MEDS: TRAZODONE 50 MG TABLET PO SCH (21:28)
[2018-08-12] MEDS: SIMVASTATIN 20 MG TABLET PO SCH (21:29)
[2018-08-13 04:00] VITALS: BP 160/68
--- NOTE | 2018-08-13 04:50 | NUR ---
RN NOTES, RELEASE ENGINEER REPORTED BP 160/68, 61, 98%, WENT TO PATIENTS ROOM AND RECHECKED BP, UPON ASSESSMENT PATIENT BP 186/70, 60, 99%, ASKED PATIENT IF HE HAD PATIENT AND HE STATED THAT HE HAD HEADACHE AND CHEST PAIN, WHEN ASKED ABOUT CHEST PAIN CHARACTERISTICS PATIENT STATED THAT PAIN RADIATES TO CHEST /10.
--- NOTE | 2018-08-13 05:05 | NUR ---
RN NOTES, NITROGLYCERIN FIRST DOSE GIVEN, AFTER 5 MIN BP 190/78, HR 60
--- NOTE | 2018-08-13 05:10 | NUR ---
RN NOTES, SECOND DOSE OF NITROGLYCERIN GIVEN AFTER 5MIN BP 147/84, HR 61, 99%, PATIENT PLACED IN O2 2L VIA NC AT 0505.
--- NOTE | 2018-08-13 05:20 | NUR ---
RN NOTES, MORPHINE 1MG IV ADMINISTERED.
--- NOTE | 2018-08-13 05:30 | NUR ---
RN NOTES, BP NOTED 164/90, HR 65, 100%, 03/23 CALLED GARCIA WRAPPER LAYER FOR ORDER OF EKG, CHILD CUSTODY EVALUATOR WILL PAGED HIM, AWAITING FOR CALL BACK.
--- NOTE | 2018-08-13 05:40 | NUR ---
RN NOTES, UPON REASSESSMENT BP 136/76, HR 64, 100%, PATIENT STATED REPORTED FEELING BETTER, AND PAIN 1/10 AT THIS TIME, NO SOB/ACUTE DISTRESS NOTED SINCE THE BEGINNING OF SYMPTOMS , NO DIAPHORESIS NOTED, WILL CONTINUE TO MONITOR CLOSELY, AWAITING FOR GARCIA CALL.
--- NOTE | 2018-08-13 06:11 | NUR ---
LEX NOTES, RECEIVED A CALL FROM RADHA GRAVITY PROSPECTING OPERATOR AND INFORMED ABOUT THE PATIENT EPISODE OF CHEST PAIN AND THE MEDICATION ADMINISTERED, AND RADHA REPLIED WITH NEW ORDER FOR EKG STAT AND CONTINUE TO MONITOR PATIENT CLOSELY.
--- NOTE | 2018-08-13 06:56 | NUR ---
RN NOTES, INFORMED RESULTS FOR EKG TO GARCIA RESULTS BASELINE OF PATIENTS HEART RHYTHM, WILL ENDORSE CONTINUITY OF CARE TO ONCOMING NURSE.
[2018-08-13 07:34] LABS: BASOPHILS % (AUTO) 0.5 % (0.0-2.0); EOSINOPHILS % (AUTO) 2.6 % (0.0-6.0); HEMATOCRIT 40 % (39-51); HEMOGLOBIN 13.7 g/dL (13.5-17.5); LYMPHOCYTES # (AUTO) 1.5 /CMM (0.8-4.8); LYMPHOCYTES % (AUTO) 20.8 % (20.0-44.0); MEAN CORPUSCULAR HGB CONC 34 g/dl (31.0-36.0); MEAN CORPUSCULAR VOLUME 95 fL (80-96); MONOCYTES # (AUTO) 0.5 /CMM (0.1-1.30); MONOCYTES % (AUTO) 6.8 % (2.0-12.0); NEUTROPHILS # (AUTO) 4.9 /CMM (1.8-8.9); NEUTROPHILS % (AUTO) 69.3 % (43.0-81.0); PLATELET COUNT (AUTO) 139 /CMM (150-450); RED BLOOD CELL COUNT(AUTO) 4.25 MIL/uL (4.5-6.0)
[2018-08-13 07:59] LABS: CALCIUM, SERUM 8.3 mg/dL (8.5-10.1); CREATININE 0.8 mg/dL (0.6-1.3); MAGNESIUM 1.8 mg/dL (1.8-2.4); PHOSPHORUS 2.3 mg/dL (2.5-4.9); POTASSIUM 3.2 mmol/L (3.5-5.1)
[2018-08-13 08:00] VITALS: BP 156/80
[2018-08-13] MEDS: SUCRALFATE 1 G/10 ML UDC PO SCH ×3 (09:53→17:52)
[2018-08-13] MEDS: LEVETIRACETAM (250 MG) 250 MG TABLET PO SCH ×2 (09:54→17:52)
[2018-08-13] MEDS: FLUOXETINE HCL 20 MG CAPSULE PO SCH (09:54)
[2018-08-13] MEDS: DIVALPROEX SODIUM 250 MG TABLET.DR PO SCH ×3 (09:54→17:52)
[2018-08-13] MEDS: ASPIRIN 81 MG TAB.CHEW PO SCH (09:54)
[2018-08-13 09:55] VITALS: BP 158/80
[2018-08-13] MEDS: LOSARTAN POTASSIUM 50 MG TABLET PO SCH (09:55)
[2018-08-13] MEDS: FLUTICASONE/VILANTEROL 1 EACH BLST.W.DEV IH SCH (09:55)
[2018-08-13] MEDS: ENSURE ENLIVE 237 ML LIQUID (VANILLA) PO SCH ×3 (09:55→17:52)
[2018-08-13] MEDS ORDERED: K PHOS NEUTRAL 250 MG TABLET PO ONE (12:00)
[2018-08-13] MEDS: POTASSIUM CHLORIDE 20 MEQ TAB.PRT.SR PO SCH ×2 (12:30→13:58)
[2018-08-13] MEDS ORDERED: LOSA50TA3 PO (13:23)
== END 2018-08-13 17:47 | DRG 312 ==
LOC: ER 15:05 → TELE1 19:41 → MEDSG1 08-12 10:43
PROVIDERS: ADMIT Registered Nurse; ATTEND Student in an Organized Health Care Education/Training Program
DX: I95.1 Orthostatic hypotension (principal); E86.0 Dehydration; E11.9 Type 2 diabetes mellitus without complications; E87.6 Hypokalemia; E78.5 Hyperlipidemia, unspecified; Z95.0 Presence of cardiac pacemaker; G89.4 Chronic pain syndrome; F03.90 Unspecified dementia, unspecified severity, without behavioral disturbance, psychotic disturbance, mood disturbance, and anxiety; N40.0 Benign prostatic hyperplasia without lower urinary tract symptoms; K21.9 Gastro-esophageal reflux disease without esophagitis; J44.9 Chronic obstructive pulmonary disease, unspecified; Z79.899 Other long term (current) drug therapy; Z79.51 Long term (current) use of inhaled steroids; F29 Unspecified psychosis not due to a substance or known physiological condition; F32.9 Major depressive disorder, single episode, unspecified; F41.9 Anxiety disorder, unspecified; Z90.49 Acquired absence of other specified parts of digestive tract; Z88.6 Allergy status to analgesic agent; Z88.0 Allergy status to penicillin; Z91.018 Allergy to other foods; Z79.82 Long term (current) use of aspirin; M19.90 Unspecified osteoarthritis, unspecified site; E83.42 Hypomagnesemia; F43.10 Post-traumatic stress disorder, unspecified; I11.0 Hypertensive heart disease with heart failure; I50.9 Heart failure, unspecified; Z98.1 Arthrodesis status; I65.23 Occlusion and stenosis of bilateral carotid arteries; F17.200 Nicotine dependence, unspecified, uncomplicated
CPT/HCPCS: 36415; 70450-TC; 71045-TC; 72125-TC; 80048-TC; 80061-TC; 80177; 81000-TC; 82962-TC; 83735-TC; 83880; 84100-TC; 84443-TC; 84484-TC; 85025-TC; 87081-TC; 93307-TC; 93880-TC; 97116-TC; 97530-TC; G0378; J2270; J3475; J7030; L0172; Q0163

== ENCOUNTER 2021-07-20 20:31 | Inpatient (IN) | payer MEDICARE, OTHER ==
[~2021-07-20] VITALS: Ht 167.6 cm; Wt 54.0 kg
[~2021-07-20 20:31] MED LIST changes: -ALBU1.257 IH; -ASPI-1152 PO; +ASPI-1420 PO; +AZEL6DRO5 OP; -DIPH1TAB70 PO; +LISI10TA29 PO; -LISI10TA5 PO; +LOSA50TA3 PO; -METO-295 PO; -PANT40TA4 PO
--- NOTE | 2021-07-20 20:40 | NUR ---
TO ER BED 2. BIBRA 80 FROM HOME C/O LEFT SIDE CHEST PAIN. 2 NITRO GIVEN WITH NO RELIEF. AAOX4. AMBULATORY. PT HAS PACEMAKER. CONNECTED TO MONITOR. VVS. NOT IN RESPIRATORY DISTRESS. AWAITING MD SOLIS
--- NOTE | 2021-07-20 20:50 | NUR ---
LAB AT BEDSIDE
--- NOTE | 2021-07-20 20:50 | NUR ---
COVID ANTIGEN SWAB COLLECTED AND SENT TO LAB
[2021-07-20 21:28] LABS: BASOPHILS % (AUTO) 0.7 % (0.0-2.0); EOSINOPHILS % (AUTO) 0.9 % (0.0-6.0); HEMATOCRIT 29 % (39-51); HEMOGLOBIN 9.2 g/dL (13.5-17.5); LYMPHOCYTES # (AUTO) 1.1 K/uL (0.8-4.8); LYMPHOCYTES % (AUTO) 19.5 % (20.0-44.0); MEAN CORPUSCULAR HGB CONC 32 g/dl (31.0-36.0); MEAN CORPUSCULAR VOLUME 84 fL (80-96); MONOCYTES # (AUTO) 0.5 K/uL (0.1-1.30); NEUTROPHILS # (AUTO) 4.2 K/uL (1.8-8.9); NEUTROPHILS % (AUTO) 70.9 % (43.0-81.0); PLATELET COUNT (AUTO) 299 K/uL (150-450); WHITE BLOOD COUNT (AUTO) 5.9 K/uL (4.3-11.0)
[2021-07-20 21:38] LABS: CALCIUM, SERUM 9.6 mg/dL (8.5-10.1); CARBON DIOXIDE 27 mmol/L (21-32); CHLORIDE 107 mmol/L (98-107); GLUCOSE 117 mg/dL (74-106); POTASSIUM 5.2 mmol/L (3.5-5.1); SODIUM SERUM 142 mmol/L (136-145); UREA NITROGEN, BLOOD 32 mg/dL (7-18)
[2021-07-20 21:51] LABS: ALANINE AMINOTRANSFERASE 11 U/L (12-78); ALBUMIN 2.6 g/dL (3.4-5.0); ALKALINE PHOSPHATASE 100 U/L (46-116); ASPARTATE AMINOTRANSFERASE 14 U/L (15-37); BILIRUBIN,DIRECT 0.1 mg/dL (0.0-0.2); BILIRUBIN,TOTAL 0.2 mg/dL (0.2-1.0); TOTAL PROTEIN, SERUM 8.3 g/dL (6.4-8.2)
[2021-07-20] MEDS ORDERED: MAG HYDROX/AL HYDROX/SIMETH 30 ML UDC PO PRN (23:00)
[2021-07-20] MEDS ORDERED: ACETAMINOPHEN 325 MG TABLET PO PRN (23:00)
[2021-07-20] MEDS ORDERED: MAGNESIUM HYDROXIDE 30 ML UDC PO PRN (23:00)
[2021-07-20] MEDS ORDERED: ONDANSETRON HCL/PF 4 MG/2 ML VIAL IVP PRN (23:00)
[2021-07-20] MEDS ORDERED: ZOLPIDEM TARTRATE 5 MG TABLET PO PRN (23:00)
[2021-07-20] MEDS ORDERED: Z GUARD REMEDY 4 OZ OINT TP PRN (23:00)
[2021-07-20] MEDS ORDERED: ACETAMINOPHEN 325 MG TABLET ONE (23:06)
--- NOTE | 2021-07-20 23:10 | NUR ---
PROVIDED PT WITH WARM BLANKETS, WILL CONTINUE TO MONITOR
--- NOTE | 2021-07-20 23:21 | NUR ---
ROOM 312-1
--- NOTE | 2021-07-20 23:26 | NUR ---
REPORT GIVEN TO NINA BURNETT FOR HALLIE
[2021-07-21] VITALS (10 sets, daily range): BP systolic 109–171; BP diastolic 55–87
--- NOTE | 2021-07-21 00:18 | NUR ---
PATIENT BEING TRANSFERRED TO [facility] VIA ACLS.
--- NOTE | 2021-07-21 00:30 | NUR ---
POLY AREA SUPERVISOR NOTE RECEIVED 75 Y/O M FROM ER VIA [facility]ORY[facility], ABLE TO AMBULATE WITH ASSIST, ON RA TOLERATING WELL SATING AT 98%, WITH IV ACCESS ON L WRIST #18g, INTACT, PATENT, AND FLUSHES WELL. ON TELEMONITORING, ORIENTED TO HOSPITAL ROOM, INITIAL PHYSICAL ASSESSMENT DONE, PICTURES TAKEN AND PLACED ON CHART, V/S TAKEN BP 148/61, 61 BPM, 97.9, 98%, RR 18. ABLE TO MAKE NEED KNOWN, KEPT DRY AND CLEAN, CALL LIGHT WITHIN REACH, BED IN LOWEST AND LOCKED POSITION, URINAL PROVIDED, BED ALARM ON, WILL CONT TO MONITOR THROUGHOUT THE SHIFT.
--- NOTE | 2021-07-21 02:10 | NUR ---
RN NOTE PT COMPLAINTS OF PAIN ON ANTERIOR UPPER CHEST RATED 7/10 ON PAIN SCALE. TYLENOL WAS GIVEN AT ER, PER PT IT DID NOT RELIEVED THE PAIN. INFORMED DR MORENO, SHE ORDERED NORCO 5-325 TAB PRN MED FOR PAIN Q6H. ORDERS TAKEN AND CARRIED OUT. WILL CONT TO MONITOR.
[2021-07-21] MEDS: HYDROCODONE/APAP 5/325MG TABLET PO PRN ×2 (03:06→11:46)
[2021-07-21 06:29] LABS: CALCIUM, SERUM 9.3 mg/dL (8.5-10.1); CARBON DIOXIDE 25 mmol/L (21-32); CHLORIDE 105 mmol/L (98-107); CREATININE 0.9 mg/dL (0.6-1.3); GLUCOSE 97 mg/dL (74-106); MAGNESIUM 1.7 mg/dL (1.8-2.4); POTASSIUM 4.3 mmol/L (3.5-5.1); SODIUM SERUM 139 mmol/L (136-145); UREA NITROGEN, BLOOD 29 mg/dL (7-18)
--- NOTE | 2021-07-21 06:36 | NUR ---
PLASTIC FINISHER CLOSING NOTE PT ON BED SLEEPING BUT EASILY AROUSABLE TO TOUCH AND VOICE, A/O X4, ON RA TOLERATING WELL SATING AT 98%, WITH IV ACCESS ON L WRIST #18g, INTACT, PATENT, AND FLUSHES WELL. ON TELEMONITORING CURRENTLY READING A PACING SR @ 62 BPM, ABLE TO MAKE NEED KNOWN, ALL DUE MEDS GIVEN ORDERED, KEPT DRY AND CLEAN, CALL LIGHT WITHIN REACH, BED IN LOWEST AND LOCKED POSITION, URINAL PROVIDED, BED ALARM ON, WILL ENDORSE TO AM SHIFT NURSE.
[2021-07-21] MEDS ORDERED: ASCO500C17 PO (07:05)
[2021-07-21] MEDS ORDERED: FERR325T30 PO (07:05)
[2021-07-21] MEDS ORDERED: DOCU-141 PO (07:05)
[2021-07-21] MEDS ORDERED: LORA10TA7 PO (07:05)
[2021-07-21 07:27] LABS: BASOPHILS % (AUTO) 0.6 % (0.0-2.0); EOSINOPHILS % (AUTO) 1.3 % (0.0-6.0); HEMATOCRIT 29 % (39-51); HEMOGLOBIN 9.2 g/dL (13.5-17.5); LYMPHOCYTES # (AUTO) 0.9 K/uL (0.8-4.8); LYMPHOCYTES % (AUTO) 18.9 % (20.0-44.0); MEAN CORPUSCULAR HGB CONC 32 g/dl (31.0-36.0); MEAN CORPUSCULAR VOLUME 84 fL (80-96); MONOCYTES # (AUTO) 0.4 K/uL (0.1-1.30); MONOCYTES % (AUTO) 8.3 % (2.0-12.0); NEUTROPHILS # (AUTO) 3.5 K/uL (1.8-8.9); NEUTROPHILS % (AUTO) 70.9 % (43.0-81.0); PLATELET COUNT (AUTO) 278 K/uL (150-450); RED BLOOD CELL COUNT(AUTO) 3.45 MIL/uL (4.5-6.0)
[2021-07-21] MEDS ORDERED: PANTOPRAZOLE 40 MG TABLET.DR PO SCH (07:30)
--- NOTE | 2021-07-21 07:55 | NUR ---
MICROWAVE TECHNICIAN OPENING NOTE RECEIVED PATIENT IN BED SLEEPING BUT EASILY AWAKEN. A/O X4, ON RA TOLERATING WELL. ON TELE MONITORING CURRENTLY READING A PACING SR 60 BPM. ABLE TO MAKE NEED KNOWN. IV ACCESS ON L WRIST #18G, INTACT, PATENT, AND FLUSHES WELL. SAFETY PRECAUTIONS IN PLACE; BED IN LOW POSITION AND LOCKED, RAILS UP X2, CALL LIGHT WITHIN REACH. WILL CONTINUE TO MONITOR PATIENT.
[2021-07-21] MEDS: ASPIRIN EC 81 MG TABLET.DR PO SCH (08:31)
[2021-07-21] MEDS: Magnesium 1GM/D5W 100ML PREMIX 100 ML IV SCH ×2 (08:32→09:43)
[2021-07-21] MEDS: ENOXAPARIN SODIUM 40 MG/0.4 ML DISP.SYRIN SQ SCH (08:34)
[2021-07-21] MEDS: NICOTINE PATCH (21MG) 21 MG PATCH.TD24 TD SCH (08:36)
--- NOTE | 2021-07-21 11:47 | NUR ---
BURNISHER AND BUMPER NOTES PATIENT COMPLAINING OF PAIN IN THE CHEST AREA 6 OUT OF 10. REQUESTING PAIN MEDICATION. PRN NORCO 5/325 ADMINISTERED. WILL REASSESS.
[2021-07-21] MEDS: PANTOPRAZOLE 40 MG TABLET.DR PO SCH (16:46)
[2021-07-21] MEDS: DIVALPROEX SODIUM 125 MG TABLET.DR PO SCH (16:46)
[2021-07-21] MEDS: LEVETIRACETAM (250 MG) 250 MG TABLET PO SCH (16:46)
[2021-07-21] MEDS: DOCUSATE SODIUM 100 MG CAPSULE PO SCH (16:46)
[2021-07-21] MEDS: ENSURE ENLIVE 237 ML LIQUID (VANILLA) PO SCH (16:48)
[2021-07-21] MEDS ORDERED: SUCRALFATE 1 G/10 ML UDC PO SCH (17:00)
--- NOTE | 2021-07-21 18:46 | NUR ---
AGRICULTURAL COMMODITIES INSPECTOR CLOSING NOTE PATIENT REMAINS IN BED, AWAKE, A/O X4, PATIENT ON RA TOLERATING WELL DURING THE DAY. ON TELE MONITORING CURRENTLY READING A PACING SR 62 BPM. IV ACCESS ON L WRIST #18G, INTACT, PATENT, AND FLUSHES WELL. NO COMPLAINS OF PAIN AT THIS TIME. ALL NEEDS ATTENDED DURING THE DAY. SAFETY PRECAUTIONS IN PLACE; BED IN LOW POSITION AND LOCKED, RAILS UP X2, CALL LIGHT WITHIN REACH. WILL ENDORSE TO SULPHATE TESTER NURSE FOR HALLIE.
--- NOTE | 2021-07-21 19:19 | NUR ---
REEL CART OPERATOR OPENING NOTE RECEIVED PT AWAKE IN BED. A/O X4 AND ABLE TO MAKE NEEDS KNOWN. PT STABLE ON ROOM AIR. NO SOB OR S/S OF RESPIRATORY DISTRESS. BREATHING EVEN AND UNLABORED. ON EXTERNAL CARD STRIPPER READING A PACING SR. NO COMPLAINTS OF PAIN OR DISCOMFORT AT THIS TIME. SAFETY PRECAUTIONS IN PLACE. BED IN LOWEST LOCKED POSITION, HOB ELEVATED, SIDE RAILS UP X2, AND CALL LIGHT AND TABLE WITHIN REACH. ALL NEEDS MET AT THIS TIME.
[2021-07-21] MEDS: TAMSULOSIN 0.4 MG CAP.SR.24H PO SCH (21:34)
[2021-07-21] MEDS: TRAZODONE 50 MG TABLET PO SCH (21:34)
[2021-07-21] MEDS: ATORVASTATIN 10 MG TABLET PO SCH (21:34)
[2021-07-22] VITALS: BP 125/55
[2021-07-22 04:00] VITALS: BP 115/52
[2021-07-22 04:26] VITALS: BP 115/52
--- NOTE | 2021-07-22 06:43 | NUR ---
BOTTOM BRUSHER CLOSING NOTE PT AWAKE IN BED. A/O X4 AND ABLE TO MAKE NEEDS KNOWN. PT STABLE ON ROOM AIR. NO SOB OR S/S OF RESPIRATORY DISTRESS. BREATHING EVEN AND UNLABORED. ON EXTERNAL IN SCHOOL SUSPENSION COORDINATOR READING A PACING SR 60 BPM. NO COMPLAINTS OF PAIN OR DISCOMFORT AT THIS TIME. ALL DUE MEDS GIVEN ORDERED. SAFETY PRECAUTIONS IN PLACE AT ALL TIMES. BED IN LOWEST LOCKED POSITION, HOB ELEVATED, SIDE RAILS UP X2, AND CALL LIGHT AND TABLE WITHIN REACH. ALL NEEDS MET AT THIS TIME AND WILL ENDORSE TO ONCOMING NURSE.
[2021-07-22 06:48] LABS: CALCIUM, SERUM 9.6 mg/dL (8.5-10.1); CREATININE 1.1 mg/dL (0.6-1.3); POTASSIUM 4.3 mmol/L (3.5-5.1)
--- NOTE | 2021-07-22 07:35 | NUR ---
TRANSFORMATION SPECIALIST OPENING NOTES RECEIVED PATIENT IN BED, A/O X4. ON RA WITH NO SOB OR RESP DISTRESS NOTED. DENIES PAIN AT THIS TIME. ON EXTERNAL TMD TEACHER ASSISTANT READING A PACING SR 60 BPM AT THIS TIME. SAFETY PRECAUTIONS IN PLACE. BED IN LOWEST LOCKED POSITION, HOB ELEVATED, SIDE RAILS UP X2, CALL LIGHT AND TABLE WITHIN REACH. WILL CONTINUE TO MONITOR
[2021-07-22] MEDS ORDERED: Medication Not On Formulary EA (Naloxegol Oxalate (Movantik) 25 MG) PO SCH (09:00)
[2021-07-22] MEDS: FLUOXETINE HCL 20 MG CAPSULE PO SCH (09:04)
[2021-07-22] MEDS: LEVETIRACETAM (250 MG) 250 MG TABLET PO SCH ×2 (09:04→17:26)
[2021-07-22] MEDS: LOSARTAN POTASSIUM 50 MG TABLET PO SCH (09:06)
[2021-07-22] MEDS: DIVALPROEX SODIUM 125 MG TABLET.DR PO SCH ×2 (09:07→17:26)
[2021-07-22] MEDS: NICOTINE PATCH (21MG) 21 MG PATCH.TD24 TD SCH (09:07)
[2021-07-22] MEDS: FERROUS SULFATE (325 MG) 325 MG/TAB TABLET PO SCH (09:07)
[2021-07-22] MEDS: DOCUSATE SODIUM 100 MG CAPSULE PO SCH ×2 (09:07→17:26)
[2021-07-22] MEDS: ENOXAPARIN SODIUM 40 MG/0.4 ML DISP.SYRIN SQ SCH (09:07)
[2021-07-22] MEDS: ASCORBIC ACID 500 MG TABLET PO SCH (09:07)
[2021-07-22] MEDS: PANTOPRAZOLE 40 MG TABLET.DR PO SCH ×2 (09:07→17:26)
[2021-07-22] MEDS: ASPIRIN EC 81 MG TABLET.DR PO SCH (09:12)
[2021-07-22] MEDS: ENSURE ENLIVE 237 ML LIQUID (VANILLA) PO SCH ×3 (09:13→17:27)
--- NOTE | 2021-07-22 11:15 | NUR ---
RN NOTES SEEN BY PHYSICAL THERAPY. AMBULATED WITH ASSISTANCE BY WALKER. NO COMPLAINTS WERE REPORTED. PATIENT DID NOT EXPERIENCE CHEST PAIN OR DISCOMFORT UPON EXERTION. WILL CONTINUE TO MONITOR.
[2021-07-22 16:00] VITALS: BP 126/71
[2021-07-22] MEDS: SUCRALFATE 1 G TABLET PO SCH (17:26)
--- NOTE | 2021-07-22 18:56 | NUR ---
RN CLOSING NOTES PATIENT IN BED AWAKE, A/O X4. NO COMPLAINT OF CHEST PAIN THROUGH OUT SHIFT. ALL NEEDS MET AND ORDERS CARRIED OUT. SAFETY PRECAUTIONS IN PLACE. WILL ENDORSE TO OIL BURNER NURSE FOR HALLIE
--- NOTE | 2021-07-22 19:35 | NUR ---
RN NOTES RECEIVED PATIENT AWAKE ON BED, A/O4, AMBULATE WITH WALKER, A-PACING ON TELE MONITOR HR-78, DENIES PAIN , NO SOB, CALL LIGHT WITHIN REACH, [id number], QILL CONTINUE TO MONITOR
[2021-07-22 20:00] VITALS: BP 137/55
[2021-07-22] MEDS: TRAZODONE 50 MG TABLET PO SCH (21:15)
[2021-07-22] MEDS: ATORVASTATIN 10 MG TABLET PO SCH (21:15)
[2021-07-22] MEDS: TAMSULOSIN 0.4 MG CAP.SR.24H PO SCH (21:15)
--- NOTE | 2021-07-22 21:15 | NUR ---
RN NOTES COMPLAINED OF GENERALIZED PAIN , NORCO 5/325 MG PO GIVEN ORDERED, V/S STABLE
[2021-07-22] MEDS: HYDROCODONE/APAP 5/325MG TABLET PO PRN (21:16)
[2021-07-23] VITALS: BP 112/58
[2021-07-23 04:00] VITALS: BP 111/51
--- NOTE | 2021-07-23 06:43 | NUR ---
RN NOTES SLEEPING BUT AROUSABLE, NO PAIN NOTED, NO SOB, CALL LIGHT WITHIN REACH. [id number], PT. NEEDS ATTENDED
[2021-07-23 08:00] VITALS: BP 107/56
--- NOTE | 2021-07-23 08:06 | NUR ---
RN OPENING NOTE PATIENT RECEIVED IN BED, AO X 4, ABLE TO RESPONDS ALL STIMULI. IN NO ACUTE DISTRESS NOTED. RESPIRATORY EVEN AND UNLABORED ON ROOM AIR. SKIN IS WARM TO TOUCH, KEEP CLEAN/DRY. KEPT ELEVATED HOB FOR ENSURE AIRWAY AND ASPIRATION PRECAUTION, ALSO LOWEST POSITION OF THE BED, S/R UP X 3, BED ALARM IS ON AT ALL THE TIMES. ALL SAFETY PRECAUTION APPLIED. CALL LIGHT WITHIN REACH, WILL CONTINUE TO MONITOR.
[2021-07-23] MEDS: ASPIRIN EC 81 MG TABLET.DR PO SCH (09:46)
[2021-07-23] MEDS: SUCRALFATE 1 G TABLET PO SCH ×2 (09:46→17:11)
[2021-07-23] MEDS: FLUOXETINE HCL 20 MG CAPSULE PO SCH (09:46)
[2021-07-23] MEDS: DOCUSATE SODIUM 100 MG CAPSULE PO SCH ×2 (09:46→17:10)
[2021-07-23] MEDS: PANTOPRAZOLE 40 MG TABLET.DR PO SCH ×2 (09:46→17:11)
[2021-07-23] MEDS: LEVETIRACETAM (250 MG) 250 MG TABLET PO SCH ×2 (09:46→17:10)
[2021-07-23] MEDS: FERROUS SULFATE (325 MG) 325 MG/TAB TABLET PO SCH (09:46)
[2021-07-23] MEDS: DIVALPROEX SODIUM 125 MG TABLET.DR PO SCH ×2 (09:46→17:10)
[2021-07-23] MEDS: LOSARTAN POTASSIUM 50 MG TABLET PO SCH (09:47)
[2021-07-23] MEDS: ASCORBIC ACID 500 MG TABLET PO SCH (09:47)
[2021-07-23] MEDS: ENOXAPARIN SODIUM 40 MG/0.4 ML DISP.SYRIN SQ SCH (09:49)
[2021-07-23] MEDS: NICOTINE PATCH (21MG) 21 MG PATCH.TD24 TD SCH (09:50)
[2021-07-23] MEDS: ENSURE ENLIVE 237 ML LIQUID (VANILLA) PO SCH ×3 (09:55→17:13)
[2021-07-23 16:00] VITALS: BP 118/61
--- NOTE | 2021-07-23 18:58 | NUR ---
RN CLOSING PATIENT IN BED, RESTING COMFORTABLY. IN NO ACUTE DISTRESS OBSERVED. SKIN IS WARM TO TOUCH KEEP CLEAN/DRY. RESPIRATORY EVEN AND UNLABORED ON ROOM AIR. TAKEN ALL DUE MEDICATIONS. ENCOURAGED PATENT TO ORAL FLUID INTAKE TOLERATED. KEPT ELEVATED HOB FOR ASPIRATION PRECAUTION AND ENSURE AIRWAY. ALSO LOWEST POSITION OF THE BED FOR SAFETY. BED ALARM IS ON AT ALL THE TIME. ALL SAFETY PRECAUTION APPLIED. WILL ENDORSE TO INK JET OPERATOR.
--- NOTE | 2021-07-23 19:33 | NUR ---
FIGURE CLERK OPENING NOTE RECEIVED PT AWAKE IN BED. A/O X4 AND ABLE TO MAKE NEEDS KNOWN. PT STABLE ON ROOM AIR. NO SOB OR S/S OF RESPIRATORY DISTRESS. BREATHING EVEN AND UNLABORED. ON EXTERNAL REGISTERED CLINICAL DIETITIAN READING A PACING SR. IV ACCESS L WRIST 18 GUAGE, INTACT AND PATENT. NO COMPLAINTS OF PAIN OR DISCOMFORT AT THIS TIME. SAFETY PRECAUTIONS IN PLACE. BED IN LOWEST LOCKED POSITION, HOB ELEVATED, SIDE RAILS UP X3, AND CALL LIGHT AND TABLE WITHIN REACH. ALL NEEDS MET AT THIS TIME.
[2021-07-23 20:33] VITALS: BP 117/78
[2021-07-23] MEDS: TAMSULOSIN 0.4 MG CAP.SR.24H PO SCH (21:21)
[2021-07-23] MEDS: TRAZODONE 50 MG TABLET PO SCH (21:22)
[2021-07-23] MEDS: ATORVASTATIN 10 MG TABLET PO SCH (21:22)
[2021-07-24 00:13] VITALS: BP 97/67
--- NOTE | 2021-07-24 06:34 | NUR ---
NEWSCAST DIRECTOR CLOSING NOTE PT AWAKE IN BED. A/O X4 AND ABLE TO MAKE NEEDS KNOWN. PT STABLE ON ROOM AIR. NO SOB OR S/S OF RESPIRATORY DISTRESS. BREATHING EVEN AND UNLABORED. ON EXTERNAL ASSOCIATE AGENT INSURANCE SALES READING A PACING SR 63 BPM. IV ACCESS L WRIST 18 GAUGE SL, INTACT AND PATENT. NO COMPLAINTS OF PAIN OR DISCOMFORT AT THIS TIME. ALL DUE MEDS GIVEN ORDERED. SAFETY PRECAUTIONS IN PLACE AT ALL TIMES. BED IN LOWEST LOCKED POSITION, HOB ELEVATED, SIDE RAILS UP X3, AND CALL LIGHT AND TABLE WITHIN REACH. ALL NEEDS MET AT THIS TIME AND WILL ENDORSE TO ONCOMING NURSE FOR HALLIE.
--- NOTE | 2021-07-24 07:42 | NUR ---
RN OPENING NOTE PATIENT AWAKE IN BED RESTING, A/O X4. NO S/S OF PAIN NOTED AT THIS TIME. ON ROOM AIR, NO DISTRESS OR SHORTNESS OF BREATH NOTED. IV ACCESS L WRIST #18G, INTACT, PATENT AND FLUSHING WELL. PATIENT WITH EXTERNAL LOGISTICS MANAGEMENT SPECIALIST WITH CURRENT READING OF A-PACING AND HR OF 63, NO CARDIAC DISTRESS NOTED. FALL AND SAFETY MEASURES IN PLACE, BED ALARM ON BED IN LOW AND LOCK POSITION, CALL LIGHT AND TABLE WITHIN EASY REACH, SIDE RAILS UP X2. WILL CONTINUE TO MONITOR.
[2021-07-24] MEDS: DOCUSATE SODIUM 100 MG CAPSULE PO SCH ×2 (08:24→17:38)
[2021-07-24] MEDS: DIVALPROEX SODIUM 125 MG TABLET.DR PO SCH ×2 (08:24→17:39)
[2021-07-24] MEDS: ASCORBIC ACID 500 MG TABLET PO SCH (08:24)
[2021-07-24] MEDS: ASPIRIN EC 81 MG TABLET.DR PO SCH (08:24)
[2021-07-24] MEDS: FERROUS SULFATE (325 MG) 325 MG/TAB TABLET PO SCH (08:25)
[2021-07-24] MEDS: LEVETIRACETAM (250 MG) 250 MG TABLET PO SCH ×2 (08:25→17:39)
[2021-07-24] MEDS: LOSARTAN POTASSIUM 50 MG TABLET PO SCH (08:25)
[2021-07-24] MEDS: FLUOXETINE HCL 20 MG CAPSULE PO SCH (08:25)
[2021-07-24] MEDS: PANTOPRAZOLE 40 MG TABLET.DR PO SCH ×2 (08:26→17:38)
[2021-07-24] MEDS: SUCRALFATE 1 G TABLET PO SCH ×2 (08:26→17:38)
[2021-07-24] MEDS: NICOTINE PATCH (21MG) 21 MG PATCH.TD24 TD SCH (08:26)
[2021-07-24] MEDS: ENOXAPARIN SODIUM 40 MG/0.4 ML DISP.SYRIN SQ SCH (08:27)
[2021-07-24] MEDS: ENSURE ENLIVE 237 ML LIQUID (VANILLA) PO SCH ×3 (08:30→17:39)
[2021-07-24 08:38] VITALS: BP 126/63
--- NOTE | 2021-07-24 09:40 | NUR ---
WOUND CARE CONSULT: PT PRESENTS WITH CACHEXIA AND SACRAL INTACT DEEP TISSUE INJURY, PRESENT ON ADMISSION. PT DOES NOT WANT TO EAT BREAKFAST AND SHAKES HIS HEAD NO WHEN ASKED TO TRY HIS FOOD. DISCUSSED SKIN PROTECTION WITH NURSING STAFF. MD IN AGREEMENT WITH PLAN OF CARE.
[2021-07-24 12:27] VITALS: BP 112/56
[2021-07-24] MEDS: HYDROCODONE/APAP 5/325MG TABLET PO PRN (13:58)
[2021-07-24 16:38] VITALS: BP 115/53
--- NOTE | 2021-07-24 18:23 | NUR ---
MARINE PHOTOGRAPHER NOTE PATIENT WAS DISCHARGE IN MEDICAL STABLE CONDITION. A/O X4. V/S TAKEN, STABLE AND RECORDED. NO IV ACCESS. SKIN ASSESSMENT DONE AND PICTURES TAKEN. NAME ARM BAND REMOVED. ALL BELONGINGS CHECKED AND SIGNED. HEALTH TEACHING AND DISCHARGE INSTRUCTIONS GIVEN TO PATIENT AND NURSE (MIKE) AT [facility], , VERBALIZED UNDERSTANDING. PATIENT LEFT UNIT VIA GURNEY WITH NO SIGNS OF DISTRESS, ACCOMPANIED BY PARAMEDICS. CHARGE NURSE AWARE OF DISCHARGED.
== END 2021-07-24 18:20 | DRG 392 ==
LOC: ER 20:38 → TELE 07-21 00:01
PROVIDERS: ADMIT Student in an Organized Health Care Education/Training Program
DX: K21.9 Gastro-esophageal reflux disease without esophagitis (principal); E44.0 Moderate protein-calorie malnutrition; E86.0 Dehydration; Z20.822 Contact with and (suspected) exposure to COVID-19; E11.9 Type 2 diabetes mellitus without complications; I25.10 Atherosclerotic heart disease of native coronary artery without angina pectoris; Z95.0 Presence of cardiac pacemaker; Z66 Do not resuscitate; F29 Unspecified psychosis not due to a substance or known physiological condition; R56.9 Unspecified convulsions; N40.0 Benign prostatic hyperplasia without lower urinary tract symptoms; F32.A Depression, unspecified; F41.9 Anxiety disorder, unspecified; E78.00 Pure hypercholesterolemia, unspecified; E78.5 Hyperlipidemia, unspecified; Z90.49 Acquired absence of other specified parts of digestive tract; Z91.018 Allergy to other foods; Z88.6 Allergy status to analgesic agent; Z88.0 Allergy status to penicillin; Z91.013 Allergy to seafood; Z79.82 Long term (current) use of aspirin; E87.5 Hyperkalemia; R79.89 Other specified abnormal findings of blood chemistry; I11.0 Hypertensive heart disease with heart failure; I50.9 Heart failure, unspecified; F43.10 Post-traumatic stress disorder, unspecified; F17.210 Nicotine dependence, cigarettes, uncomplicated; F03.90 Unspecified dementia, unspecified severity, without behavioral disturbance, psychotic disturbance, mood disturbance, and anxiety; J44.9 Chronic obstructive pulmonary disease, unspecified; E88.09 Other disorders of plasma-protein metabolism, not elsewhere classified; Z79.51 Long term (current) use of inhaled steroids; Z79.899 Other long term (current) drug therapy; D64.9 Anemia, unspecified
CPT/HCPCS: 36415; 71045-TC; 80048-TC; 80076-TC; 82550-TC; 83690-TC; 83735-TC; 83880; 84100-TC; 84443-TC; 84484-TC; 85025-TC; 85730-TC; 87081-TC; 93307-TC; 97116-TC; 97530-TC; C9803; G0378; J1650; J3475; J7050

== ENCOUNTER 2022-06-29 09:15 | Inpatient (IN) | payer MEDICARE, OTHER ==
[~2022-06-29] VITALS: Ht 170.2 cm; Wt 53.1 kg
[~2022-06-29 09:15] MED LIST changes: +ASCO500C17 PO; -ASPI-1420 PO; -AZEL6DRO5 OP; -CARV25TA2 PO; -CLON0.1T PO; +DOCU-141 PO; +FERR325T30 PO; -FLUT1BLS IH; -LISI10TA29 PO; +LORA10TA7 PO; -LORA1TAB PO; -OXYC-132 PO; -TEMA15CA PO
--- NOTE | 2022-06-29 09:15 | NUR ---
Afshan cisneros in ED - 06/29/22 at 1315 by SAYRA REceIved pt 76 YRS MALE CAME FROM HOME BY PRAMDIC FOR CHEST PAIN AND SEIZURE
--- NOTE | 2022-06-29 09:15 | NUR ---
RECEIVEING PT 76 YRS MALE CAME BY HAO FROM [facility] FOR EVALUATION OF SEIZURE AND CHEST PAIN NO SOB NO TRUMA
--- NOTE | 2022-06-29 09:20 | NUR ---
SEEN BY DR. FLORES
--- NOTE | 2022-06-29 09:25 | NUR ---
INSERTED ANG CATHETER G 20 ON RT AC BLOOD DROW AND SENT TO LAB
--- NOTE | 2022-06-29 09:44 | NUR ---
XRAY AT BEDSIDE
[2022-06-29 09:58] LABS: BASOPHILS % (AUTO) 0.5 % (0.0-2.0); EOSINOPHILS % (AUTO) 0.8 % (0.0-6.0); HEMATOCRIT 32 % (39-51); HEMOGLOBIN 10.2 g/dL (13.5-17.5); LYMPHOCYTES # (AUTO) 0.7 K/uL (0.8-4.8); LYMPHOCYTES % (AUTO) 10.1 % (20.0-44.0); MEAN CORPUSCULAR HGB CONC 32 g/dl (31.0-36.0); MEAN CORPUSCULAR VOLUME 89 fL (80-96); MONOCYTES # (AUTO) 0.5 K/uL (0.1-1.30); MONOCYTES % (AUTO) 7.7 % (2.0-12.0); NEUTROPHILS # (AUTO) 5.5 K/uL (1.8-8.9); NEUTROPHILS % (AUTO) 80.9 % (43.0-81.0); PLATELET COUNT (AUTO) 337 K/uL (150-450); RED BLOOD CELL COUNT(AUTO) 3.58 MIL/uL (4.5-6.0); WHITE BLOOD COUNT (AUTO) 6.8 K/uL (4.3-11.0)
[2022-06-29 10:18] LABS: ALANINE AMINOTRANSFERASE 16 U/L (12-78); ALBUMIN 3.1 g/dL (3.4-5.0); ALKALINE PHOSPHATASE 122 U/L (46-116); ASPARTATE AMINOTRANSFERASE 17 U/L (15-37); BILIRUBIN,DIRECT 0.1 mg/dL (0.0-0.2); BILIRUBIN,TOTAL 0.3 mg/dL (0.2-1.0); CALCIUM, SERUM 9.9 mg/dL (8.5-10.1); CARBON DIOXIDE 25 mmol/L (21-32); CHLORIDE 106 mmol/L (98-107); CREATININE 1.2 mg/dL (0.6-1.3); GLUCOSE 177 mg/dL (74-106); SODIUM SERUM 139 mmol/L (136-145); TOTAL PROTEIN, SERUM 8.7 g/dL (6.4-8.2); UREA NITROGEN, BLOOD 40 mg/dL (7-18)
--- NOTE | 2022-06-29 10:20 | NUR ---
RESTING AND ASLEEPT NO PAIN
--- NOTE | 2022-06-29 11:20 | NUR ---
NO ACTIVE SEIZURE AT THIS TIME
--- NOTE | 2022-06-29 12:05 | NUR ---
MOVE SHEET SUBMITTED.
--- NOTE | 2022-06-29 12:08 | NUR ---
COVID SWAB COLLECTED AND SENT TO LAB
[2022-06-29] MEDS ORDERED: LOSA50TA39 PO (12:18)
[2022-06-29] MEDS ORDERED: ACET-73 PO (12:18)
[2022-06-29] MEDS ORDERED: ASPI-1169 PO (12:18)
[2022-06-29] MEDS ORDERED: ASCO500T10 PO (12:18)
[2022-06-29] MEDS ORDERED: PANT40TA2 PO (12:18)
[2022-06-29] MEDS ORDERED: GUAI100S11 PO (12:18)
[2022-06-29] MEDS ORDERED: NITROGLYCERIN 0.4 MG/TAB BOTTLE SL ONE (12:30)
[2022-06-29] MEDS ORDERED: ASPIRIN 325 MG TABLET PO ONE (12:30)
[2022-06-29] MEDS ORDERED: NITROGLYCERIN 0.4 MG/TAB BOTTLE ONE (12:33)
[2022-06-29] MEDS ORDERED: ASPIRIN 325 MG TABLET ONE (12:34)
--- NOTE | 2022-06-29 13:09 | NUR ---
WATING FOR ROOM
--- NOTE | 2022-06-29 15:28 | NUR ---
[place] FOR PT PRESENTED BY
--- NOTE | 2022-06-29 15:45 | NUR ---
CALLED DR. NYE, NOT GHOST WRITER.
[2022-06-29] MEDS ORDERED: MAGNESIUM HYDROXIDE 30 ML UDC PO PRN (16:00)
[2022-06-29] MEDS ORDERED: MORPHINE SULFATE INJ 2 MG/ML DISP.SYRIN IV PRN (16:00)
[2022-06-29] MEDS ORDERED: ONDANSETRON HCL/PF 4 MG/2 ML VIAL IVP PRN (16:00)
[2022-06-29] MEDS ORDERED: ACETAMINOPHEN 325 MG TABLET PO PRN (16:00)
--- NOTE | 2022-06-29 16:01 | NUR ---
report given to mandi wei in [place].
--- NOTE | 2022-06-29 16:15 | NUR ---
PT REQUSTED TO [facility] OK BY DR. FLORES OUT WITH EDT FOR OBSERVE
[2022-06-29] MEDS ORDERED: LORAZEPAM INJ 2 MG/ML VIAL IV PRN (16:30)
[2022-06-29] MEDS ORDERED: DEXTROSE 50%-WATER 50 ML DISP.SYRIN IV PRN (16:30)
[2022-06-29] MEDS ORDERED: NICOTINE PATCH (21MG) 21 MG PATCH.TD24 TD ONE (16:30)
--- NOTE | 2022-06-29 16:40 | NUR ---
TO ROOM 115-1 VIA VALENTINA CARRILLO VS PT RESUSED TO GO BACK TO [facility]
--- NOTE | 2022-06-29 16:45 | NUR ---
MACHINE PRESSER NOTE ADMIT 76 YEARS OLD MALE TO ROOM 115-1 ON TELE MONITORING,ADMITTING DIAGNOSIS IS SEIZURE,ALERT ORIENTED X4 VERBALLY RESPONSIVE ON PACEMAKER,ON ROOM AIR O2:98% IV ACCESS ON RIGHT AC INTACT PATENT,CONTINET BOWEL/BLADDER SAFETY MEASURE IMPLEMENT BED IN LOW POSITON AND LOCKED,SEIZURE PRECAUTIONS,CALL LIGHT WITHIN REACH CONTINUE TO MONITOR.
[2022-06-29] MEDS: SUCRALFATE 1 G/10 ML UDC PO SCH (16:56)
[2022-06-29] MEDS: DOCUSATE SODIUM 100 MG CAPSULE PO SCH (16:56)
[2022-06-29] MEDS: DIVALPROEX SODIUM 125 MG TABLET.DR PO SCH (16:57)
[2022-06-29] MEDS: LEVETIRACETAM (250 MG) 250 MG TABLET PO SCH (16:57)
[2022-06-29] MEDS: ACETAMINOPHEN ES 500 MG TABLET PO SCH (16:57)
[2022-06-29] MEDS: BLOOD SUGAR DIAGNOSTIC 1 EACH STRIP VI SCH ×2 (16:58→22:13)
[2022-06-29 18:18] VITALS: BP 158/88
--- NOTE | 2022-06-29 18:39 | NUR ---
RN NOTE PATIENT REMAINS ALERT ORIENTED X4 VERBALLY RESPONSIVE NO SOB NOT ACUTE DISTRESS NOTED,ALL MEDS FOR AFTERNOON GIVEN MD ORDERED,KEPT BED IN LOW POSITION AND LOCKED,CALL LIGHT WITHIN REACH,SEIZURE PRECAUTION IN PLACE WILL ENDORSE NEXT COMING SHIFT FOR CONTINUATION OF CARE.
--- NOTE | 2022-06-29 19:10 | NUR ---
RN NOTE REPORT RECEIVED FROM JOSE BURNETT, RECEIVED IN BED, AAO X 4, IN NO ACUTE DISTRESS, SATURATION AT 99% ON ROOM AIR, SR ON THE MONITOR, HR IS 63. IV LINE AT RAC 20G PATENT AND FLUSHING WELL, SALINE LOCKED. SAFETY MEASURES IMPLEMENTED, BED IS LOCKED AND AT LOWEST POSITION, HOB ELEVATED, CALL LIGHT WITHIN RECH OF PATIENT. WILL CONT TO MONITOR AND REASSESS. Addendum: 06/30/22 at 0019 by GLENROY NAIK RN Patient is A-paced on the monitor.
[2022-06-29 20:00] VITALS: BP 145/70
[2022-06-29] MEDS: TRAZODONE 50 MG TABLET PO SCH (22:13)
[2022-06-29] MEDS: TAMSULOSIN 0.4 MG CAP.SR.24H PO SCH (22:13)
[2022-06-29] MEDS: ATORVASTATIN 10 MG TABLET PO SCH (22:13)
[2022-06-29] MEDS: *INSULIN REGULAR(HUMULIN R)HUM 100 UNIT/ML VIAL SQ PRN (22:15)
[2022-06-30 00:12] VITALS: BP 143/69
[2022-06-30 04:00] VITALS: BP 125/56
[2022-06-30 06:24] LABS: BASOPHILS # (AUTO) 0.1 K/uL (0.0-0.2); BASOPHILS % (AUTO) 0.9 % (0.0-2.0); EOSINOPHILS % (AUTO) 2.5 % (0.0-6.0); HEMATOCRIT 30 % (39-51); HEMOGLOBIN 9.7 g/dL (13.5-17.5); LYMPHOCYTES % (AUTO) 16.3 % (20.0-44.0); MEAN CORPUSCULAR HGB CONC 32 g/dl (31.0-36.0); MEAN CORPUSCULAR VOLUME 89 fL (80-96); MONOCYTES # (AUTO) 0.6 K/uL (0.1-1.30); MONOCYTES % (AUTO) 10.6 % (2.0-12.0); NEUTROPHILS # (AUTO) 4.1 K/uL (1.8-8.9); NEUTROPHILS % (AUTO) 69.7 % (43.0-81.0); PLATELET COUNT (AUTO) 310 K/uL (150-450); RED BLOOD CELL COUNT(AUTO) 3.41 MIL/uL (4.5-6.0); WHITE BLOOD COUNT (AUTO) 5.9 K/uL (4.3-11.0)
[2022-06-30 06:36] LABS: CHOLESTEROL 135 mg/dL (<200); HDL CHOLESTEROL 39 mg/dL (40-60); LDL 88 mg/dL (0-99); TRIGLYCERIDES 82 mg/dL (30-150)
[2022-06-30 06:38] LABS: IRON, SERUM 28 ug/dl (50-175); TOTAL IRON BINDING CAPACITY 162 ug/dl (250-450)
[2022-06-30 06:40] LABS: ALANINE AMINOTRANSFERASE 16 U/L (12-78); ALBUMIN 2.6 g/dL (3.4-5.0); ALKALINE PHOSPHATASE 108 U/L (46-116); ASPARTATE AMINOTRANSFERASE 20 U/L (15-37); BILIRUBIN,TOTAL 0.1 mg/dL (0.2-1.0); CALCIUM, SERUM 9.2 mg/dL (8.5-10.1); CARBON DIOXIDE 23 mmol/L (21-32); CHLORIDE 106 mmol/L (98-107); CREATININE 0.9 mg/dL (0.6-1.3); GLUCOSE 113 mg/dL (74-106); MAGNESIUM 1.9 mg/dL (1.8-2.4); PHOSPHORUS 3.1 mg/dL (2.5-4.9); POTASSIUM 4.1 mmol/L (3.5-5.1); SODIUM SERUM 139 mmol/L (136-145); TOTAL PROTEIN, SERUM 7.9 g/dL (6.4-8.2); UREA NITROGEN, BLOOD 37 mg/dL (7-18)
[2022-06-30] MEDS ORDERED: PANTOPRAZOLE 40 MG TABLET.DR PO SCH (07:30)
[2022-06-30 08:00] VITALS: BP 112/55
[2022-06-30] MEDS: ASCORBIC ACID 500 MG TABLET PO SCH (08:12)
[2022-06-30] MEDS: ACETAMINOPHEN ES 500 MG TABLET PO SCH ×2 (08:12→16:35)
[2022-06-30] MEDS: PANTOPRAZOLE 40 MG TABLET.DR PO SCH (08:12)
[2022-06-30] MEDS: LEVETIRACETAM (250 MG) 250 MG TABLET PO SCH ×2 (08:12→16:35)
[2022-06-30] MEDS: LORATADINE 10 MG TABLET PO SCH (08:12)
[2022-06-30] MEDS: DOCUSATE SODIUM 100 MG CAPSULE PO SCH ×2 (08:12→16:34)
[2022-06-30] MEDS: DIVALPROEX SODIUM 125 MG TABLET.DR PO SCH ×2 (08:12→16:34)
[2022-06-30] MEDS: ASPIRIN 81 MG TAB.CHEW PO SCH (08:12)
[2022-06-30] MEDS: SUCRALFATE 1 G/10 ML UDC PO SCH (08:13)
[2022-06-30] MEDS: FLUOXETINE HCL 20 MG CAPSULE PO SCH (08:13)
[2022-06-30] MEDS: LOSARTAN POTASSIUM 50 MG TABLET PO SCH (08:13)
[2022-06-30] MEDS: BLOOD SUGAR DIAGNOSTIC 1 EACH STRIP VI SCH ×4 (08:14→23:03)
[2022-06-30] MEDS ORDERED: Medication Not On Formulary EA (Naloxegol Oxalate (Movantik) 25 MG) PO SCH (09:00)
[2022-06-30] MEDS ORDERED: IV NS 0.9% 1,000 ML IV PRN (09:30)
[2022-06-30 12:00] VITALS: BP 115/46
[2022-06-30] MEDS: IV NS 0.9% 1,000 ML IV SCH (14:30)
[2022-06-30 16:00] VITALS: BP 147/63
[2022-06-30] MEDS: SUCRALFATE 1 G TABLET PO SCH (16:34)
[2022-06-30 20:00] VITALS: BP 125/72
--- NOTE | 2022-06-30 20:00 | NUR ---
RN CLOSING NOTES PT IS STABLE, VITALS STABLE, ALL DUE MEDICATIONS GIVEN, NO COMPLAINT OF PAIN AT THIS TIME. REPORT GIVEN TO NINA BURNETT FOR CONTINUATION OF CARE.
--- NOTE | 2022-06-30 20:00 | NUR ---
RN NOTE Received pt in bed, awake, alert x4, verbally responsive, denies pain or discomfort. Pt on room air, well tolerated, no sob, no acute resp distress, o2 sat 97%. Attached to external desk monitor reading A-pacing HR64. Afebrile. PIV access on RAC #20G, patent, flushes well, CDI, infusing NS at 70ml/hr, no s/sx of cx noted. HOB elevated for comfort. Call light within easy reach. Safety precaution implemented. Will continue plan of care.
[2022-06-30] MEDS: TRAZODONE 50 MG TABLET PO SCH (21:19)
[2022-06-30] MEDS: ATORVASTATIN 10 MG TABLET PO SCH (21:19)
[2022-06-30] MEDS: TAMSULOSIN 0.4 MG CAP.SR.24H PO SCH (21:19)
[2022-06-30] MEDS: HEPARIN SODIUM, PORCINE 5000 UNITS/1 ML VIAL SQ SCH (21:23)
[2022-07-01] VITALS: BP 112/89
[2022-07-01 04:00] VITALS: BP 121/64
[2022-07-01] MEDS: IV NS 0.9% 1,000 ML IV SCH ×2 (04:07→18:18)
[2022-07-01] MEDS: HYDROCODONE/APAP 5/325MG TABLET PO PRN (04:57)
[2022-07-01 06:43] LABS: BASOPHILS % (AUTO) 0.7 % (0.0-2.0); HEMATOCRIT 27 % (39-51); HEMOGLOBIN 8.8 g/dL (13.5-17.5); LYMPHOCYTES # (AUTO) 1.2 K/uL (0.8-4.8); LYMPHOCYTES % (AUTO) 21.3 % (20.0-44.0); MEAN CORPUSCULAR HGB CONC 32 g/dl (31.0-36.0); MEAN CORPUSCULAR VOLUME 89 fL (80-96); MONOCYTES # (AUTO) 0.6 K/uL (0.1-1.30); MONOCYTES % (AUTO) 10.2 % (2.0-12.0); NEUTROPHILS # (AUTO) 3.7 K/uL (1.8-8.9); NEUTROPHILS % (AUTO) 65.8 % (43.0-81.0); PLATELET COUNT (AUTO) 268 K/uL (150-450); RED BLOOD CELL COUNT(AUTO) 3.06 MIL/uL (4.5-6.0); WHITE BLOOD COUNT (AUTO) 5.6 K/uL (4.3-11.0)
[2022-07-01 07:03] LABS: ALBUMIN 2.4 g/dL (3.4-5.0); BILIRUBIN,TOTAL 0.1 mg/dL (0.2-1.0); MAGNESIUM 1.9 mg/dL (1.8-2.4); PHOSPHORUS 2.9 mg/dL (2.5-4.9); POTASSIUM 4.1 mmol/L (3.5-5.1); TOTAL PROTEIN, SERUM 7.2 g/dL (6.4-8.2)
--- NOTE | 2022-07-01 07:03 | NUR ---
RN NOTE Pt remains in stable condition, no significant changes noted. All due medications given as ordered. Kept pt clean, dry and comfortable. Will endorse to morning shift nurse for continuity of care.
[2022-07-01 08:00] VITALS: BP 130/70
[2022-07-01] MEDS: BLOOD SUGAR DIAGNOSTIC 1 EACH STRIP VI SCH ×4 (08:05→22:03)
[2022-07-01] MEDS: FLUOXETINE HCL 20 MG CAPSULE PO SCH (08:06)
[2022-07-01] MEDS: DIVALPROEX SODIUM 125 MG TABLET.DR PO SCH ×2 (08:06→17:23)
[2022-07-01] MEDS: PANTOPRAZOLE 40 MG TABLET.DR PO SCH (08:06)
[2022-07-01] MEDS: DOCUSATE SODIUM 100 MG CAPSULE PO SCH ×2 (08:06→17:23)
[2022-07-01] MEDS: LEVETIRACETAM (250 MG) 250 MG TABLET PO SCH ×2 (08:06→17:23)
[2022-07-01] MEDS: ASPIRIN 81 MG TAB.CHEW PO SCH (08:06)
[2022-07-01] MEDS: LORATADINE 10 MG TABLET PO SCH (08:06)
[2022-07-01] MEDS: ASCORBIC ACID 500 MG TABLET PO SCH (08:07)
[2022-07-01] MEDS: SUCRALFATE 1 G TABLET PO SCH ×2 (08:07→17:23)
[2022-07-01] MEDS: HEPARIN SODIUM, PORCINE 5000 UNITS/1 ML VIAL SQ SCH ×2 (08:09→21:01)
[2022-07-01] MEDS: ACETAMINOPHEN ES 500 MG TABLET PO SCH ×2 (08:11→17:23)
[2022-07-01] MEDS: LOSARTAN POTASSIUM 50 MG TABLET PO SCH (09:04)
[2022-07-01] MEDS ORDERED: IOHEXOL-350 100 ML VIAL IV ONE (11:51)
[2022-07-01 12:00] VITALS: BP 129/71
--- NOTE | 2022-07-01 12:00 | NUR ---
RN NOTES: SPOKE TO DR BRIAN PT IS ALLERGIC TO FISH CONTAINING PRODUCT AND HE IS SCHEDULED FOR CT ANGIO WHAT HE WOULD LIKE TO DO WITH ORDER TO GIVE SOLUMEDROL 100 MG IV X 1 PRIOR TO PROCEDURE
[2022-07-01] MEDS ORDERED: methylPREDNISolone SOD SUCC 125 MG/2ML VIAL IV ONE (12:30)
[2022-07-01] MEDS ORDERED: NITROGLYCERIN 4.9 GM SPRAY ONE (13:11)
--- NOTE | 2022-07-01 13:15 | NUR ---
RN NOTES: CT ANGIO DONE, PT IS BACK WITH NO S/S OF ANY ALLERGIC REACTION, PT SEEN BY DR ABBY CALLAHAN TO SMOKE IN THE DESIGNATED AREA, PT MADE AWARE OF THE RISK AND HAZARD OF SMOKING AND HE SIGNED SMOKING AGREEMENT
[2022-07-01 16:00] VITALS: BP 144/72
[2022-07-01] MEDS: GLUCERNA SHAKE 237 ML CAN PO SCH (17:23)
--- NOTE | 2022-07-01 19:30 | NUR ---
SOAKING PITS SUPERVISOR OPENING NOTES RECEIVED PT IN BED WATCHING TV AT THIS TIME. A/O X4, ABLE TO MAKE NEEDS KNOWN. ON RA WITH NO SOB OR DISTRESS. DENIES PAIN AT THIS TIME. ON MAIL MACHINE OPERATOR READING SR 67. IV ACCESS RAC #20G RUNNING NS @70 ML/HR, INTACT, PATENT, FLUSHING WELL. SEIZURE PRECAUTIONS IN PLACE. SAFETY MEASURES IN PLACE: BED LOCKED AND IN LOWEST POSITION, SIDE RAILS UP X3, BED ALARM ON, CALL LIGHT AND TRAY TABLE WITHIN REACH. WILL CONTINUE TO MONITOR AND ASSIST.
--- NOTE | 2022-07-01 19:35 | NUR ---
STREETCAR REPAIRER HELPER CLOSING NOTES PT IS STABLE, VITALS STABLE, ALL DUE MEDICATIONS GIVEN, NO COMPLAINT OF PAIN AT THIS TIME. REPORT GIVEN TO COMMERCIAL LEASING MANAGER RN FOR CONTINUATION OF CARE.
[2022-07-01 20:00] VITALS: BP 130/55
[2022-07-01] MEDS: TAMSULOSIN 0.4 MG CAP.SR.24H PO SCH (21:02)
[2022-07-01] MEDS: TRAZODONE 50 MG TABLET PO SCH (21:02)
[2022-07-01] MEDS: ATORVASTATIN 10 MG TABLET PO SCH (21:02)
[2022-07-01] MEDS: *INSULIN REGULAR(HUMULIN R)HUM 100 UNIT/ML VIAL SQ PRN (22:06)
--- NOTE | 2022-07-01 22:45 | NUR ---
RN NOTE PT WAS ASSISTED VIA WHEELCHAIR TO DESIGNATED SMOKING AREA FOR A SMOKE PERMITTED BY MD. STAYED WITH PATIENT, PT FINISHED AFTER 10 MINS.
[2022-07-02] VITALS: BP 115/55
[2022-07-02 04:00] VITALS: BP 142/58
[2022-07-02 05:52] LABS: BASOPHILS % (AUTO) 0.3 % (0.0-2.0); EOSINOPHILS % (AUTO) 0.3 % (0.0-6.0); HEMATOCRIT 27 % (39-51); HEMOGLOBIN 8.7 g/dL (13.5-17.5); LYMPHOCYTES % (AUTO) 13.2 % (20.0-44.0); MEAN CORPUSCULAR HGB CONC 32 g/dl (31.0-36.0); MEAN CORPUSCULAR VOLUME 91 fL (80-96); MONOCYTES # (AUTO) 0.6 K/uL (0.1-1.30); NEUTROPHILS % (AUTO) 78.2 % (43.0-81.0); PLATELET COUNT (AUTO) 232 K/uL (150-450); WHITE BLOOD COUNT (AUTO) 7.6 K/uL (4.3-11.0)
[2022-07-02 06:17] LABS: CALCIUM, SERUM 8.9 mg/dL (8.5-10.1); CARBON DIOXIDE 25 mmol/L (21-32); CHLORIDE 106 mmol/L (98-107); CREATININE 0.9 mg/dL (0.6-1.3); GLUCOSE 106 mg/dL (74-106); SODIUM SERUM 140 mmol/L (136-145); UREA NITROGEN, BLOOD 25 mg/dL (7-18)
--- NOTE | 2022-07-02 06:37 | NUR ---
LENS MOUNTER CLOSING NOTES PT IN BED SLEEPING AT THIS TIME, EASILY AROUSABLE. A/O X4, ABLE TO MAKE NEEDS KNOWN. STABLE ON RA WITH NO SOB OR DISTRESS. DENIES PAIN AT THIS TIME. ON PIPELINE CONTROLLER READING SR 60'S-70'S. IV ACCESS RAC #20G RUNNING NS @70 ML/HR, INTACT, PATENT, FLUSHING WELL. ALL CARE PROVIDED AND MEDS TOLERATED WELL. SEIZURE PRECAUTIONS IN PLACE. SAFETY MEASURES IN PLACE: BED LOCKED AND IN LOWEST POSITION, SIDE RAILS UP X3, BED ALARM ON, CALL LIGHT AND TRAY TABLE WITHIN REACH. WILL ENDORSE HALLIE TO DAY SHIFT NURSE.
--- NOTE | 2022-07-02 07:10 | NUR ---
RN NOTE RECEIVED PATIENT IN BED RESTING ALERT ORIENTEDX4 VERBALLY RESPONSIVE ON ROOM AIR O2:96% IV ACCESS ON RAC INTACT PATENT,ON NS 70CC/HR,CONTINET BOWEL/BLADDER SAFETY MEASURE IMPLEMENT BED IN LOW POSITION AND LOCKED CALL LIGHT WITHIN REACH CONTINUE TO MONITOR.
[2022-07-02] MEDS: PANTOPRAZOLE 40 MG TABLET.DR PO SCH (07:20)
[2022-07-02] MEDS: BLOOD SUGAR DIAGNOSTIC 1 EACH STRIP VI SCH ×4 (07:31→21:59)
[2022-07-02] MEDS: IV NS 0.9% 1,000 ML IV SCH (07:34)
[2022-07-02 08:00] VITALS: BP 147/72
[2022-07-02] MEDS: FLUOXETINE HCL 20 MG CAPSULE PO SCH (09:08)
[2022-07-02] MEDS: SUCRALFATE 1 G TABLET PO SCH ×2 (09:08→16:08)
[2022-07-02] MEDS: DIVALPROEX SODIUM 125 MG TABLET.DR PO SCH ×2 (09:08→16:08)
[2022-07-02] MEDS: ASCORBIC ACID 500 MG TABLET PO SCH (09:08)
[2022-07-02] MEDS: ACETAMINOPHEN ES 500 MG TABLET PO SCH ×2 (09:08→16:08)
[2022-07-02] MEDS: LEVETIRACETAM (250 MG) 250 MG TABLET PO SCH ×2 (09:09→16:08)
[2022-07-02] MEDS: DOCUSATE SODIUM 100 MG CAPSULE PO SCH ×2 (09:09→16:08)
[2022-07-02] MEDS: ASPIRIN 81 MG TAB.CHEW PO SCH (09:09)
[2022-07-02] MEDS: LOSARTAN POTASSIUM 50 MG TABLET PO SCH (09:09)
[2022-07-02] MEDS: HEPARIN SODIUM, PORCINE 5000 UNITS/1 ML VIAL SQ SCH (09:11)
[2022-07-02] MEDS: GLUCERNA SHAKE 237 ML CAN PO SCH ×2 (09:32→17:34)
[2022-07-02] MEDS: LORATADINE 10 MG TABLET PO SCH (09:41)
[2022-07-02] MEDS ORDERED: IV NS 0.9% 1,000 ML IV PRN (10:43)
[2022-07-02] MEDS: HYDROCODONE/APAP 5/325MG TABLET PO PRN (11:36)
[2022-07-02] MEDS: INSULIN REGULAR, HUMAN 100 UNIT/ML 3 ML VIAL SQ PRN (11:38)
[2022-07-02 12:00] VITALS: BP 155/81
[2022-07-02 16:00] VITALS: BP 125/62
--- NOTE | 2022-07-02 19:01 | NUR ---
RN NOTE PATIENT REMAINS ALERT ORIENTEDX4 VERBALLY RESPONSIVE ON ROOM AIR O2:96%,NO SOB NOT ACUTE DISTRESS NOTED,IV ACCESS ON RAC INTACT PATENT,ON NS 70CC/HR,ALL DUE MEDS GIVEN MD ORDERED KEPT CLEAN AND DRY ALL THE TIME,ALL NEEDS MET ENDORSE NEXT COMING SHIFT FOR CONTINUATION OF CARE.
[2022-07-02 20:00] VITALS: BP 140/73
--- NOTE | 2022-07-02 20:40 | NUR ---
N/V Patient in bed, vomited x1. Food residue emesis. Patient denies chest pain. IV Zofran given, will reassess.
[2022-07-02] MEDS: ATORVASTATIN 10 MG TABLET PO SCH (22:00)
[2022-07-02] MEDS: TAMSULOSIN 0.4 MG CAP.SR.24H PO SCH (22:00)
[2022-07-02] MEDS: *INSULIN REGULAR(HUMULIN R)HUM 100 UNIT/ML VIAL SQ PRN (22:00)
[2022-07-02] MEDS: TRAZODONE 50 MG TABLET PO SCH (22:00)
[2022-07-03] VITALS: BP 125/61
[2022-07-03 04:00] VITALS: BP 126/55
--- NOTE | 2022-07-03 05:42 | NUR ---
END OF SHIFT REPORT Patient in bed, Alert Oriented x4. A Pacing in the director of patient safety, HR 62. Oxygen sat high 90's in RA. No episode of seizure during the night. Right arm IV access intact, IVF continuous. N/V improved with IV Zofran. Denies chest pain. Plan for US Guided thoracentesis today, patient consented procedure. Will endorse to oncoming RN.
--- NOTE | 2022-07-03 07:10 | NUR ---
RN NOTE RECEIVED PATIENT IN BED RESTING ALERT ORIENTEDX4 VERBALLY RESPONSIVE ON ROOM AIR O2:96% IV ACCESS ON RAC INTACT PATENT,CONTINET BOWEL/BLADDER SAFETY MEASURE IMPLEMENT BED IN LOW POSITION AND LOCKED CALL LIGHT WITHIN REACH CONTINUE TO MONITOR.
[2022-07-03] MEDS: PANTOPRAZOLE 40 MG TABLET.DR PO SCH (07:24)
[2022-07-03] MEDS: BLOOD SUGAR DIAGNOSTIC 1 EACH STRIP VI SCH ×4 (07:34→22:26)
[2022-07-03] MEDS: GLUCERNA SHAKE 237 ML CAN PO SCH ×2 (07:34→17:07)
[2022-07-03 08:00] VITALS: BP 105/65
[2022-07-03] MEDS: ACETAMINOPHEN ES 500 MG TABLET PO SCH ×2 (08:42→16:29)
[2022-07-03] MEDS: LORATADINE 10 MG TABLET PO SCH (08:42)
[2022-07-03] MEDS: LEVETIRACETAM (250 MG) 250 MG TABLET PO SCH ×2 (08:42→16:29)
[2022-07-03] MEDS: ASCORBIC ACID 500 MG TABLET PO SCH (08:42)
[2022-07-03] MEDS: SUCRALFATE 1 G TABLET PO SCH ×2 (08:42→16:30)
[2022-07-03] MEDS: FLUOXETINE HCL 20 MG CAPSULE PO SCH (08:42)
[2022-07-03] MEDS: DIVALPROEX SODIUM 125 MG TABLET.DR PO SCH ×2 (08:42→16:29)
[2022-07-03] MEDS: DOCUSATE SODIUM 100 MG CAPSULE PO SCH ×2 (08:42→16:30)
[2022-07-03] MEDS: LOSARTAN POTASSIUM 50 MG TABLET PO SCH (08:43)
[2022-07-03] MEDS: ASPIRIN 81 MG TAB.CHEW PO SCH (08:43)
[2022-07-03 12:00] VITALS: BP 122/65
--- NOTE | 2022-07-03 13:00 | NUR ---
RN NOTE THORACENTESIS DONE 55CC FLUID OUTPUT SENT TO LAB FOR ANALYSIS.
--- NOTE | 2022-07-03 18:45 | NUR ---
RN NOTE PATIENT REMAINS ALERT ORIENTED X3-4 VERBALLY RESPONSIVE ON ROOM AIR NO SOB NOT ACUTE DISTRESS NOTED ALL DUE MEDS GIVEN MD ORDERED KEPT CLEAN AND DRY,S/P THORACENTESIS,ALL NEEDS MET ENDORSE NEXT COMING SHIFT FOR CONTINUATION OF CARE.
--- NOTE | 2022-07-03 19:30 | NUR ---
noc rn opening Received patient in bed. a/ox4. no s/s of apparent distress in room air. denies pain. reading A-pacing with 62 bpm. no fluids running at this time, Rt. ac #20 g intact and patent. safety in place-- bed in lowest, locked position, rails up X2, call light within reach. will continue with patient's plan of care.
[2022-07-03 20:00] VITALS: BP 145/56
[2022-07-03] MEDS: TRAZODONE 50 MG TABLET PO SCH (21:45)
[2022-07-03] MEDS: ATORVASTATIN 10 MG TABLET PO SCH (21:45)
[2022-07-03] MEDS: TAMSULOSIN 0.4 MG CAP.SR.24H PO SCH (21:45)
[2022-07-03] MEDS: *INSULIN REGULAR(HUMULIN R)HUM 100 UNIT/ML VIAL SQ PRN (22:26)
[2022-07-04] VITALS: BP 133/59
[2022-07-04 04:00] VITALS: BP 143/57
--- NOTE | 2022-07-04 06:45 | NUR ---
noc rn closing note Patient in bed with eyes closed, easy to arouse. no s/s of apparent distress on room air. denies pain. IV access on saline lock, s/p thoracentesis. reading A-pacing on the tele monitor 68bpm at this time. all needs attended. all scheduled medications administered. safety kept in place throughout shift. will endorse to morning shift rn for continuity of patient care.
[2022-07-04] MEDS: BLOOD SUGAR DIAGNOSTIC 1 EACH STRIP VI SCH ×2 (07:09→12:05)
[2022-07-04] MEDS: INSULIN REGULAR, HUMAN 100 UNIT/ML 3 ML VIAL SQ PRN (07:09)
--- NOTE | 2022-07-04 07:09 | NUR ---
noc rn note patient's blood sugar 97 Hg/dL. no coverage needed.
[2022-07-04 08:00] VITALS: BP 149/61
[2022-07-04] MEDS: GLUCERNA SHAKE 237 ML CAN PO SCH (08:11)
[2022-07-04] MEDS: PANTOPRAZOLE 40 MG TABLET.DR PO SCH (08:11)
[2022-07-04] MEDS: LEVETIRACETAM (250 MG) 250 MG TABLET PO SCH ×2 (09:12→17:19)
[2022-07-04 09:13] VITALS: BP 149/61
[2022-07-04] MEDS: ASCORBIC ACID 500 MG TABLET PO SCH (09:13)
[2022-07-04] MEDS: LOSARTAN POTASSIUM 50 MG TABLET PO SCH (09:13)
[2022-07-04] MEDS: FLUOXETINE HCL 20 MG CAPSULE PO SCH (09:13)
[2022-07-04] MEDS: DOCUSATE SODIUM 100 MG CAPSULE PO SCH ×2 (09:13→17:26)
[2022-07-04] MEDS: ASPIRIN 81 MG TAB.CHEW PO SCH (09:13)
[2022-07-04] MEDS: LORATADINE 10 MG TABLET PO SCH (09:13)
[2022-07-04] MEDS: ACETAMINOPHEN ES 500 MG TABLET PO SCH ×2 (09:14→17:19)
[2022-07-04] MEDS: DIVALPROEX SODIUM 125 MG TABLET.DR PO SCH (09:14)
[2022-07-04] MEDS: SUCRALFATE 1 G TABLET PO SCH ×2 (09:14→17:19)
--- NOTE | 2022-07-04 17:39 | NUR ---
RN NOTE PATIENT DISCHARGED TO [facility], PATIENT IS A/X3 WITH BOUTS OF CONFUSION, BREATHING ON ROOM AIR SATING AT 97%, TELE MONITOR REMOVED, IV ACCESS ON RAC REMOVED NO S/S OF BLEEDING NOTED, ID BAND REMOVED, ALL BELONGINGS ACCOUNTED INCLUDING GEOTHERMAL HVAC TECHNICIAN AND CIGARETTES FOR, DISCHARGE PACKET GIVEN TO AMBULANCE CREW. CHARGE NURSE AWARE.
== END 2022-07-04 18:07 | DRG 101 ==
LOC: ER 09:24 → TELE1 13:24 → MEDSG1 07-04 10:00
PROVIDERS: ADMIT Internal Medicine; ATTEND Internal Medicine
PROC: 0W993ZX Drainage of Right Pleural Cavity, Percutaneous Approach, Diagnostic (ICD-10-PCS; principal; 2022-07-03)
DX: G40.909 Epilepsy, unspecified, not intractable, without status epilepticus (principal); F03.A4 Unspecified dementia, mild, with anxiety; N17.9 Acute kidney failure, unspecified; J90 Pleural effusion, not elsewhere classified; J98.11 Atelectasis; G95.9 Disease of spinal cord, unspecified; F03.A3 Unspecified dementia, mild, with mood disturbance; E86.0 Dehydration; N40.0 Benign prostatic hyperplasia without lower urinary tract symptoms; I11.0 Hypertensive heart disease with heart failure; I50.9 Heart failure, unspecified; I25.10 Atherosclerotic heart disease of native coronary artery without angina pectoris; Z20.822 Contact with and (suspected) exposure to COVID-19; Z95.0 Presence of cardiac pacemaker; F17.210 Nicotine dependence, cigarettes, uncomplicated; F12.90 Cannabis use, unspecified, uncomplicated; E87.5 Hyperkalemia; E11.9 Type 2 diabetes mellitus without complications; F29 Unspecified psychosis not due to a substance or known physiological condition; F32.A Depression, unspecified; Z90.49 Acquired absence of other specified parts of digestive tract; F41.9 Anxiety disorder, unspecified; E78.00 Pure hypercholesterolemia, unspecified; Z88.6 Allergy status to analgesic agent; Z88.0 Allergy status to penicillin; Z91.013 Allergy to seafood; Z91.018 Allergy to other foods; Z79.82 Long term (current) use of aspirin; Z79.899 Other long term (current) drug therapy; J44.9 Chronic obstructive pulmonary disease, unspecified; K21.9 Gastro-esophageal reflux disease without esophagitis; K29.70 Gastritis, unspecified, without bleeding; M19.90 Unspecified osteoarthritis, unspecified site; D50.9 Iron deficiency anemia, unspecified; D63.8 Anemia in other chronic diseases classified elsewhere; G47.00 Insomnia, unspecified; Z79.84 Long term (current) use of oral hypoglycemic drugs; F39 Unspecified mood [affective] disorder; F20.9 Schizophrenia, unspecified; I65.29 Occlusion and stenosis of unspecified carotid artery; N32.0 Bladder-neck obstruction; R91.8 Other nonspecific abnormal finding of lung field
CPT/HCPCS: 36415; 71045-TC; 71250-TC; 75574; 80048-TC; 80053-TC; 80061-TC; 80076-TC; 82378; 82728-TC; 82962-TC; 83540-TC; 83735-TC; 83880; 84100-TC; 84439-TC; 84443-TC; 84484-TC; 85025-TC; 85045-TC; 85730-TC; 87081-TC; 87102-TC; 87806; 88108-TC; 88305-TC; 89051-TC; 93307-TC; 93880-TC; A4223; C9803; G0378; J1644; J1815; J2405; J2930; J7030; Q9967

== ENCOUNTER 2022-10-27 00:02 | Emergency (ER) | payer MEDICARE, OTHER ==
[~2022-10-27] VITALS: Ht 170.2 cm; Wt 52.2 kg
[~2022-10-27 00:02] MED LIST changes: +ACET-73 PO; -ASCO500C17 PO; +ASCO500T10 PO; +ASPI-1169 PO; +GUAI100S11 PO; -LOSA50TA3 PO; +LOSA50TA39 PO; +PANT40TA2 PO
[2022-10-27 00:17] VITALS: TEMP 97.8
[2022-10-27] MEDS ORDERED: ONDANSETRON HCL/PF 4 MG/2 ML VIAL IVP ONE (00:30)
[2022-10-27] MEDS ORDERED: IV NS 0.9% 1,000 ML BAG IV ONE (00:30)
[2022-10-27] MEDS ORDERED: DICYCLOMINE HCL INJ 20 MG/2 ML AMPUL IM ONE ×2 (00:30→00:39)
[2022-10-27] MEDS ORDERED: ONDANSETRON HCL/PF 4 MG/2 ML VIAL ONE (00:39)
[2022-10-27 00:53] LABS: BASOPHILS % (AUTO) 0.7 % (0.0-2.0); EOSINOPHILS # (AUTO) 0.1 K/uL (0.0-0.7); EOSINOPHILS % (AUTO) 1.7 % (0.0-6.0); HEMATOCRIT 29 % (39-51); HEMOGLOBIN 9.4 g/dL (13.5-17.5); LYMPHOCYTES # (AUTO) 1.2 K/uL (0.8-4.8); LYMPHOCYTES % (AUTO) 19.6 % (20.0-44.0); MEAN CORPUSCULAR HEMOGLOBIN 29 PG (26.0-33.0); MEAN CORPUSCULAR HGB CONC 32 g/dl (31.0-36.0); MEAN CORPUSCULAR VOLUME 90 fL (80-96); MONOCYTES # (AUTO) 0.6 K/uL (0.1-1.30); MONOCYTES % (AUTO) 9.3 % (2.0-12.0); NEUTROPHILS # (AUTO) 4.2 K/uL (1.8-8.9); NEUTROPHILS % (AUTO) 68.7 % (43.0-81.0); PLATELET COUNT (AUTO) 316 K/uL (150-450); RED BLOOD CELL COUNT(AUTO) 3.24 MIL/uL (4.5-6.0); RED CELL DISTRIBUTION WIDTH 15.8 % (11.5-15.0); WHITE BLOOD COUNT (AUTO) 6.1 K/uL (4.3-11.0)
[2022-10-27 01:10] LABS: APPEARANCE,URINE CLEAR (CLEAR); BILIRUBIN,URINE NEGATIVE (NEGATIVE); BLOOD, URINE 2+ Ery/uL (NEGATIVE); COLOR,URINE YELLOW (YELLOW); KETONES,URINE NEGATIVE (NEGATIVE); LEUKOCYTE ESTERASE ,URINE NEGATIVE (NEGATIVE); NITRITE, URINE NEGATIVE (NEGATIVE); PH,URINE 5.5 (5.0-8.0); PROTEIN,URINE NEGATIVE (NEGATIVE); UGLUCOSE NEGATIVE (NEGATIVE)
[2022-10-27 01:15] LABS: INR 1.22 (0.91-1.10); PARTIAL THROMBOPLASTIN TIME 31.9 SEC (24.3-34.3); PROTHROMBIN TIME 12.7 SECS (9.2-11.1)
[2022-10-27 01:18] LABS: ADD URINE CULTURE NO; BACTERIA,URINE Rare /HPF (None Seen); SQUAMOUS EPITHELIAL CELL,UR Rare /HPF (None Seen); WBC,URINE 0-2 /HPF (0-3)
[2022-10-27 01:19] LABS: ALBUMIN 2.6 g/dL (3.4-5.0); BILIRUBIN,DIRECT 0.1 mg/dL (0.0-0.2); BILIRUBIN,TOTAL 0.1 mg/dL (0.2-1.0); CALCIUM, SERUM 9.6 mg/dL (8.5-10.1); CREATININE 1.1 mg/dL (0.6-1.3); POTASSIUM 3.9 mmol/L (3.5-5.1); TOTAL PROTEIN, SERUM 8.2 g/dL (6.4-8.2)
[2022-10-27 02:50] VITALS: BP 161/69; O2SAT 100
== END 2022-10-27 07:19 ==
LOC: ER 00:05
DX: R10.9 Unspecified abdominal pain (principal); R19.7 Diarrhea, unspecified; F03.90 Unspecified dementia, unspecified severity, without behavioral disturbance, psychotic disturbance, mood disturbance, and anxiety; I11.0 Hypertensive heart disease with heart failure; I50.9 Heart failure, unspecified; E78.00 Pure hypercholesterolemia, unspecified; E11.9 Type 2 diabetes mellitus without complications; K21.9 Gastro-esophageal reflux disease without esophagitis; F20.9 Schizophrenia, unspecified; F17.200 Nicotine dependence, unspecified, uncomplicated; Z88.0 Allergy status to penicillin; Z88.8 Allergy status to other drugs, medicaments and biological substances; Z91.013 Allergy to seafood; Z91.018 Allergy to other foods; Z79.899 Other long term (current) drug therapy
CPT/HCPCS: 99285; 74176; 96374; 96361; 93005; 85025; 80048; 83690; 80076; 81001; 36415; 85730; 96372; J2405; J7030; J0500

== ENCOUNTER 2023-01-19 16:51 | Emergency (ER) | payer MEDICARE, OTHER ==
[~2023-01-19] VITALS: Ht 167.6 cm; Wt 61.2 kg
[2023-01-19 17:20] VITALS: BP 138/84; TEMP 98.1; O2SAT 100
[2023-01-19 17:49] LABS: BASOPHILS % (AUTO) 0.5 % (0.0-2.0); EOSINOPHILS # (AUTO) 0.1 K/uL (0.0-0.7); EOSINOPHILS % (AUTO) 1.4 % (0.0-6.0); HEMATOCRIT 32 % (39-51); HEMOGLOBIN 10.4 g/dL (13.5-17.5); LYMPHOCYTES # (AUTO) 1.1 K/uL (0.8-4.8); LYMPHOCYTES % (AUTO) 14.5 % (20.0-44.0); MEAN CORPUSCULAR HEMOGLOBIN 29 PG (26.0-33.0); MEAN CORPUSCULAR HGB CONC 33 g/dl (31.0-36.0); MEAN CORPUSCULAR VOLUME 88 fL (80-96); MONOCYTES # (AUTO) 0.6 K/uL (0.1-1.30); MONOCYTES % (AUTO) 8.2 % (2.0-12.0); NEUTROPHILS # (AUTO) 5.6 K/uL (1.8-8.9); NEUTROPHILS % (AUTO) 75.4 % (43.0-81.0); PLATELET COUNT (AUTO) 332 K/uL (150-450); RED BLOOD CELL COUNT(AUTO) 3.57 MIL/uL (4.5-6.0); RED CELL DISTRIBUTION WIDTH 16.6 % (11.5-15.0); WHITE BLOOD COUNT (AUTO) 7.4 K/uL (4.3-11.0)
[2023-01-19 17:57] LABS: MAGNESIUM 1.9 mg/dL (1.8-2.4)
[2023-01-19 18:00] LABS: CALCIUM, SERUM 9.3 mg/dL (8.5-10.1); CARBON DIOXIDE 24 mmol/L (21-32); CHLORIDE 101 mmol/L (98-107); CREATININE 1.2 mg/dL (0.6-1.3); GLUCOSE 118 mg/dL (74-106); SODIUM SERUM 136 mmol/L (136-145); UREA NITROGEN, BLOOD 28 mg/dL (7-18)
[2023-01-19 18:08] LABS: ALKALINE PHOSPHATASE 135 U/L (46-116); ASPARTATE AMINOTRANSFERASE 13 U/L (15-37); BILIRUBIN,TOTAL 0.2 mg/dL (0.2-1.0)
[2023-01-19 18:09] LABS: ACETAMINOPHEN 0 ug/ml (10-30); ALANINE AMINOTRANSFERASE 6 U/L (12-78); ALBUMIN 2.7 g/dL (3.4-5.0); ALCOHOL, BLOOD < 3 mg/dL (0-10); SALICYLATE 5.3 mg/dL (2.8-20.0); TOTAL PROTEIN, SERUM 8.7 g/dL (6.4-8.2)
[2023-01-19 18:15] LABS: THYROID STIMULATING HORMONE 1.498 uIU/mL (0.358-3.74)
[2023-01-19 19:11] LABS: APPEARANCE,URINE SLIGHTLY CLOUDY (CLEAR); BILIRUBIN,URINE NEGATIVE (NEGATIVE); BLOOD, URINE 3+ Ery/uL (NEGATIVE); COLOR,URINE YELLOW (YELLOW); KETONES,URINE NEGATIVE (NEGATIVE); LEUKOCYTE ESTERASE ,URINE 1+ (NEGATIVE); NITRITE, URINE POSITIVE (NEGATIVE); PH,URINE 5.5 (5.0-8.0); PROTEIN,URINE 2+ mg/dl (NEGATIVE); UGLUCOSE NEGATIVE (NEGATIVE); UROBILINOGEN,URINE 0.2 EU/dL (0.2)
[2023-01-19 19:19] LABS: AMPHETAMINE, URINE NEGATIVE (NEGATIVE); BARBITURATE, URINE NEGATIVE (NEGATIVE); BENZODIAZEPINE, URINE NEGATIVE (NEGATIVE); COCCAINE, URINE NEGATIVE (NEGATIVE); OPIATE, URINE NEGATIVE (NEGATIVE); PHENCYCLIDINE SCREEN,URINE NEGATIVE (NEGATIVE)
[2023-01-19 19:26] LABS: CANNABINOID, URINE POSITIVE (NEGATIVE)
[2023-01-19] MEDS ORDERED: MORPHINE SULFATE INJ 2 MG/ML DISP.SYRIN IV ONE (20:00)
[2023-01-19] MEDS ORDERED: MORPHINE SULFATE INJ 4 MG/ML DISP.SYRIN ONE (20:15)
[2023-01-19 20:51] LABS: ADD URINE CULTURE YES; BACTERIA,URINE 3+ /HPF (None Seen); MUCUS,URINE Moderate /LPF (None Seen); SQUAMOUS EPITHELIAL CELL,UR None Seen /HPF (None Seen)
[2023-01-19] MEDS ORDERED: CEFTRIAXONE 1GM BAG (ER ONLY) 1 GM/50 ML PIGGYBACK IV ONE (22:30)
[2023-01-19] MEDS ORDERED: CEFTRIAXONE 1GM BAG (ER ONLY) 50 ML IV ONE (23:19)
[2023-01-20] MEDS ORDERED: DIVA125C5 PO (07:50)
[2023-01-20] MEDS ORDERED: HYDR-4303 PO (07:50)
[2023-01-20] MEDS ORDERED: ASPI-1420 PO (07:50)
[2023-01-20] MEDS ORDERED: ASCO500T10 PO (07:51)
== END 2023-01-20 09:14 | disposition left against medical advice (07) ==
LOC: ER 16:51
DX: R45.851 Suicidal ideations (principal); N39.0 Urinary tract infection, site not specified; J90 Pleural effusion, not elsewhere classified; R19.7 Diarrhea, unspecified; F03.90 Unspecified dementia, unspecified severity, without behavioral disturbance, psychotic disturbance, mood disturbance, and anxiety; K21.9 Gastro-esophageal reflux disease without esophagitis; E11.9 Type 2 diabetes mellitus without complications; I10 Essential (primary) hypertension; F20.9 Schizophrenia, unspecified; F17.200 Nicotine dependence, unspecified, uncomplicated; Z79.899 Other long term (current) drug therapy; Z79.82 Long term (current) use of aspirin; Z88.0 Allergy status to penicillin; Z88.1 Allergy status to other antibiotic agents
CPT/HCPCS: 99285; 96365; 96375; 93005; 71045; 74176; 85025; 80048; 87086; 83690; 80076; 83735; 81001; 36415; 84443; 84484 ×2; 80143; 80320; 80307; J2270; J0696; G0480

== ENCOUNTER 2023-03-13 17:39 | Emergency (ER) | payer MEDICARE, OTHER ==
[~2023-03-13] VITALS: Ht 167.6 cm; Wt 65.8 kg
[~2023-03-13 17:39] MED LIST changes: -ASPI-1169 PO; +ASPI-1420 PO; +DIVA125C5 PO; -DIVA250T4 PO; -GUAI100S11 PO; +HYDR-4303 PO
[2023-03-13 18:07] VITALS: BP 135/68; TEMP 98; O2SAT 98
[2023-03-13] MEDS ORDERED: CARI350T PO (19:36)
== END 2023-03-13 21:08 ==
LOC: ER 17:43
DX: M54.50 Low back pain, unspecified (principal); I11.0 Hypertensive heart disease with heart failure; I50.9 Heart failure, unspecified; E78.00 Pure hypercholesterolemia, unspecified; E11.9 Type 2 diabetes mellitus without complications; F03.90 Unspecified dementia, unspecified severity, without behavioral disturbance, psychotic disturbance, mood disturbance, and anxiety; K21.9 Gastro-esophageal reflux disease without esophagitis; F20.9 Schizophrenia, unspecified; Z88.0 Allergy status to penicillin; Z88.6 Allergy status to analgesic agent; Z91.013 Allergy to seafood; Z91.018 Allergy to other foods; Z79.82 Long term (current) use of aspirin; Z79.899 Other long term (current) drug therapy
CPT/HCPCS: 72100-TC